=== PATIENT | male | born 1935 | race Caucasian/White ===

== ENCOUNTER 2016-08-05 10:10 | Inpatient (IN) | payer OTHER, BC ==
[2016-08-05 10:21] VITALS: BMI 23.8
--- NOTE | 2016-08-05 10:33 | PDOC ---
History of Present Illness - General Chief Complaint: Blood Sugar Problem Stated Complaint: AMS Time Seen by Provider: 08/05/16 10:26 History Source: Patient Exam Limitations: No Limitations - History of Present Illness Initial Comments: CHIEF COMPLAINT: 81 y/o afebrile male with PMH DM, ESRD (HD M/W/F), CAD s/p [place] and CABG (on plavix), HLD, cardiomyopathy with AICD, PAD with ambutated toes on right foot, anemia BIB EMS from [place] for syncopal episode. HISTORY OF PRESENT ILLNESS: The patient states he was told by half-way staff that he passed out. He states he does not remember falling or passing out. He woke up in his bed and was told he passed out. He denies all other complaints including dizziness, f/c, n/v/d, CP, SOB, abd pain, back pain. Vital signs on arrival are notable for pulse of 46. REVIEW OF SYSTEMS: GENERAL/CONSTITUTIONAL: No fever/chills. No weakness. No weight change. HEAD, EYES, EARS, NOSE AND THROAT: No change in vision. No ear pain or discharge. No sore throat. CARDIOVASCULAR: No chest pain or shortness of breath. RESPIRATORY: No cough, wheezing, or hemoptysis. GASTROINTESTINAL: No abd pain, nausea, vomiting, diarrhea. GENITOURINARY: No dysuria, frequency, or change in urination. MUSCULOSKELETAL: No joint or muscle swelling or pain. No neck or back pain. SKIN: No rash or easy bruising. NEUROLOGIC: +LOC. No headache, vertigo, or loss of sensation. PHYSICAL EXAM: GENERAL: The patient is awake, alert, and fully oriented, in no acute distress. HEAD: Normal with no signs of trauma. ENT: Pupils equal, round and reactive to light, extraocular movements intact, sclera anicteric, conjunctiva clear. Mucous membranes mildly dry. LUNGS: Clear to auscultation bilaterally. Normal excursion. No respiratory distress or use of accessory muscles. CV: bradycardic with irregular rate. S1/S2, no MRG. Cap refill < 2 sec. ABDOMEN: Soft, non-distended, non-tender even to deep palpation, no hepatomegaly or splenomegaly, no masses. EXTREMITIES: Normal range of motion, no edema. Right foot in bandage s/p 2 toe amputation last 2 weeks. NEUROLOGICAL: Normal speech. Gait not assessed in the ER. CN II-XII grossly intact. A&O x 3. No facial droop. No slurred speech PSYCH: Normal mood, normal affect. SKIN: Warm, dry, normal turgor, no rashes or lesions noted. Past History - Past Medical History Allergies/Adverse Reactions: Allergies Allergy/AdvReac Type Severity Reaction Status Date / Time No Known Allergies Allergy Verified 07/07/16 09:27 Home Medications: Ambulatory Orders Clopidogrel Bisulfate [Plavix -] 75 mg PO DAILY 07/30/11 Ramipril [Altace] 5 mg PO DAILY 07/30/11 Sevelamer Carbonate [Renvela -] 1,600 mg PO ACBK 07/30/11 Simvastatin [Zocor -] 40 mg PO HS #0 tablet 08/04/11 Vit B Cmplx 3/FA/Vit C/Biotin [Nephro-Coleman Rx Tablet] 1 each PO DAILY #0 tablet 08/04/11 Albuterol 0.083% Nebulizer Jerilyn [Ventolin 0.083% Nebulizer Soln -] 1 neb NEB Q6H PRN #1 vial 09/05/11 Aspirin Coated [Ecotrin -] 81 mg PO DAILY tablet.ec 03/30/16 Sitagliptin Phosphate [Januvia -] 25 mg PO DAILY@0700 tab 03/30/16 Pantoprazole Sodium [Protonix] 20 mg PO DAILY 07/07/16 Carvedilol [Coreg -] 6.25 mg PO BID tablet 07/29/16 Insulin Sliding Scale [Novolog Vial Sliding Scale -] 1 vial SQ ACHS units 07/29 Losartan Potassium [Cozaar -] 25 mg PO DAILY tablet 07/29/16 Asthma: Yes Cancer: Yes (skin) Cardiac Disorders: Yes (cad) Diabetes: Yes Dialysis: Yes (left lower arm fistula) HTN: Yes Hypercholesterolemia: Yes - Surgical History Appendectomy: Yes Cardiac Surgery: Yes (open heart sx, triple bypass.) - Immunization History Immunization Up to Date: Yes - Psycho/Social/Smoking Cessation Hx Anxiety: No Suicidal Ideation: No Smoking Status: No Smoking History: Never smoked Have you smoked in the past 12 months: No Number of Cigarettes Smoked Daily: 0 Hx Alcohol Use: No Drug/Substance Use Hx: No Substance Use Type: None Hx Substance Use Treatment: No *Physical Exam - Vital Signs Last Vital Signs Temp Pulse Resp BP Pulse Ox 46 L 18 124/67 97 08/05/16 10:19 08/05/16 10:19 08/05/16 10:19 08/05/16 10:19 Heart Score/ECG Review - ECG Intrepretation Comment:: Twelve-lead EKG was performed and reviewed by Dr. Trujillo. Sinus bradycardia with intermittent paced rhythm. No acute ST changes. Impression: Abnormal twelve-lead EKG ED Treatment Course - LABORATORY CBC & Chemistry Diagram: 08/05/16 11:00 08/05/16 11:00 Medical Decision Making - Medical Decision Making A/P: 81 y/o afebrile male with reported LOC at half-way which the patient does not recollect. Plan is as follows: 1. EKG 2. CXR 3. Labs CXR IMPRESSION: CHF Head CT IMPRESSION: Negative for acute pathology. Spoke with Dr. Mendes who accepts admission to [facility]. Dr. Mendes requested consult with Dr. 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 Rosario Placed call to Dr. Ferrera, [employer] [address] Mukherjee for dialysis today. Spoke with Dr. Le and he will set up dialysis for today. Spoke with Dr. Schneider, monorail helper for Dr. Ferrera and he states the patient should be seen by Dr. Rosario. Looked in the orders in the chart and Dr. Mendes has already ordered consult with Dr. Rosario. *DC/Admit/Observation/Transfer Diagnosis at time of Disposition: Syncope and collapse, Elevated brain natriuretic peptide (BNP) level, CHF ( congestive heart failure), ESRD (end stage renal disease) - Discharge Dispostion Admit: Yes - Referrals
[2016-08-05 11:11] LABS: BASOPHIL 1.2 % (0-2.0); EOSINOPHIL 7.9 % (0-4.5); MCH 27.4 pg (25.7-33.7); MCHC 29.5 g/dl (32.0-35.9); MEAN CELL VOLUME 92.8 fl (80-96); MEAN PLT VOLUME 9.2 fl (7.5-11.1); NEUTROPHILS 68.1 % (42.8-82.8); PLATELET COUNT 173 K/MM3 (134-434); WHITE BLOOD COUNT 11.4 K/mm3 (4.0-10.0)
--- NOTE | 2016-08-05 11:17 | PDOC ---
*Physical Exam - Vital Signs Last Vital Signs Temp Pulse Resp BP Pulse Ox 46 L 18 124/67 97 08/05/16 10:19 08/05/16 10:19 08/05/16 10:19 08/05/16 10:19 ED Treatment Course - LABORATORY CBC & Chemistry Diagram: 08/05/16 11:00 08/05/16 11:00 Medical Decision Making - Medical Decision Making 08/05/16 11:16 Patient seen and evaluated with the nurse practitioner. I agree with the overall evaluation, assessment, and management with the following summary of visit: 81-year-old male with multiple medical problems including heart disease with AICD presents brought in by ambulance with syncope. No trauma. Agree with management and assessment as outlined, labs/chest x-ray/EKG, likely admission *DC/Admit/Observation/Transfer Diagnosis at time of Disposition: Syncope and collapse
[2016-08-05 11:28] LABS: INR 1.35 (0.82-1.09); PROTHROMBIN TIME (PATIENT) 14.9 SEC (9.98-11.88)
[2016-08-05 11:36] LABS: BILIRUBIN,TOTAL 0.7 mg/dL (0.2-1.0); CALCIUM 8.4 mg/dL (8.5-10.1); CREATININE 4.8 mg/dL (0.7-1.3); TOT PROT 6.6 g/dl (6.4-8.2)
[2016-08-05 11:50] LABS: TROPONIN I 0.02 ng/ml (0.00-0.05)
--- NOTE | 2016-08-05 14:41 | CON.PULM ---
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 I called the nursing and spoke to his nurse, patient was found on floor in his room with a heart rate of mid 40's and blood glucose level of 54.He states he does not remember falling or passing out. He woke up in his bed and was told he passed out. He denies chest pain,fever,chills or N/V. 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 No: AFIB, HTN, Mitral Stenosis, Pulmonary Hypertension Pulmonary: Yes: Cancer, COPD Gastrointestinal: No: Ascites Hepatobiliary: No: Cirrhosis Renal/: Yes: Renal Failure, Hemodialysis Heme/Onc: Yes: Anemia Infectious Disease: No: AIDS Psych: No: Addictions Endocrine: Yes: Diabetes Mellitus - Past Surgical History Past Surgical History: Yes: AICD, CABG, Colonoscopy - Alcohol/Substance Use Hx Alcohol Use: No History of Substance Use: reports: None - Smoking History Smoking history: Never smoked Have you smoked in the past 12 months: No Aproximately how many cigarettes per day: 0 - Social History ADL: Independent History of Recent Travel: No Home Medications - Allergies Allergies/Adverse Reactions: Allergies Allergy/AdvReac Type Severity Reaction Status Date / Time No Known Allergies Allergy Verified 07/07/16 09:27 - Home Medications Home Medications: Ambulatory Orders Clopidogrel Bisulfate [Plavix -] 75 mg PO DAILY 07/30/11 Ramipril [Altace] 5 mg PO DAILY 07/30/11 Sevelamer Carbonate [Renvela -] 1,600 mg PO ACBK 07/30/11 Simvastatin [Zocor -] 40 mg PO HS #0 tablet 08/04/11 Vit B Cmplx 3/FA/Vit C/Biotin [Nephro-Coleman Rx Tablet] 1 each PO DAILY #0 tablet 08/04/11 Albuterol 0.083% Nebulizer Jerilyn [Ventolin 0.083% Nebulizer Soln -] 1 neb NEB Q6H PRN #1 vial 09/05/11 Aspirin Coated [Ecotrin -] 81 mg PO DAILY tablet.ec 03/30/16 Sitagliptin Phosphate [Januvia -] 25 mg PO DAILY@0700 tab 03/30/16 Pantoprazole Sodium [Protonix] 20 mg PO DAILY 07/07/16 Carvedilol [Coreg -] 6.25 mg PO BID tablet 07/29/16 Insulin Sliding Scale [Novolog Vial Sliding Scale -] 1 vial SQ ACHS units 07/29 Losartan Potassium [Cozaar -] 25 mg PO DAILY tablet 07/29/16 Family Disease History - Family Disease History Family Disease History: Diabetes: Brother, Heart Disease: Brother, [place]: Brother Review of Systems - Review of Systems Constitutional: denies: Fever Eyes: denies: Blurred Vision HENT: denies: Difficult Swallowing Neck: denies: Decreased ROM Cardiovascular: denies: Chest Pain Respiratory: reports: SOB on Exertion Gastrointestinal: denies: Abdominal Pain Physical Exam Vital Sings: Vital Signs Temperature Pulse Rate 46 L 08/05/16 10:19 Respiratory Rate 18 08/05/16 10:19 Blood Pressure 124/67 08/05/16 10:19 O2 Sat by Pulse Oximetry (%) 97 08/05/16 10:19 Constitutional: Yes: Calm Eyes: Yes: EOM Intact HENT: Yes: Normocephalic Neck: Yes: Trachea Midline Cardiovascular: Yes: Bradycardia, S1, S2 Respiratory: Yes: CTA Bilaterally Gastrointestinal: Yes: Normal Bowel Sounds, Soft Extremities: Yes: Other (RIGHT FOOT BANDAGED/NO EDEMA) Integumentary: Yes: Other (DRY GANGRENE TOES RIGHT FOOT) Neurological: Yes: Alert Psychiatric: Yes: Alert Labs: REVIEWED Imaging - Results Chest X-ray: Image Reviewed EKG: Report Reviewed Problem List - Problems (1) Anemia Code(s): D64.9 - ANEMIA, UNSPECIFIED Qualifiers: Anemia type: other cause Other causes of anemia: chronic disease, kidney Qualified Code(s): N18.9 - Chronic kidney disease, unspecified; D63.1 - Anemia in chronic kidney disease (2) CHF (congestive heart failure) Code(s): I50.9 - HEART FAILURE, UNSPECIFIED (3) ESRD (end stage renal disease) Code(s): N18.6 - END STAGE RENAL DISEASE (4) H/O myocardial infarction, greater than 8 weeks Code(s): I25.2 - OLD MYOCARDIAL INFARCTION (5) Gangrene Code(s): I96 - GANGRENE, NOT ELSEWHERE CLASSIFIED (6) Hypoglycemia Code(s): E16.2 - HYPOGLYCEMIA, UNSPECIFIED (7) Bradyarrhythmia Code(s): I49.8 - OTHER SPECIFIED CARDIAC ARRHYTHMIAS Assessment/Plan EPISODE OF HYPOGLYCEMIA LIKELY THE CAUSATIVE EVENT NEED TO EVALUATE ICD FUNCTION ESRD/HD TIW ASHD/CAD/FL/CABG/DILATED CARDIOMYOPATHY PAD/S/P HOPPER FEEDER RIGHT LOWER EXT FOLLOWED BY 2ND TOE AMPUTATION HPL/DM/ANEMIA HOLD HYPOGLYCEMIC AGENTS FOR NOW CHECK BGM AC/HS CONTINUE HD PER SCHEDULE CARDIAC EVAL ICD NEEDS VASCULAR CONSULT FOR FURTHER EVALUATION OF DRY GANGRENE WILL FOLLOW WITH YOU Alex MOSER
[2016-08-05] MEDS ORDERED: HEPARIN NA (PORCINE) 5,000 UNITS/ML 1ML VIAL IVPUSH ONE (15:00)
--- NOTE | 2016-08-05 15:28 | CON.CARD ---
Cardiology Consult (text) - Consultation Consultation Note: Cardiology consult was requested. However, patient has been seen multiple times recently by Dr. Servin's group, with most recent evaluation on 07/31/16. ER was instructed to contact Dr. Servin's group.
--- NOTE | 2016-08-05 16:24 | CON.CARD ---
[id number]:: Post fall - History of Present Illness Chief Complaint: Post fall, bradycardia History of Present Illness: Patient is an 81 year old male well known to our service with underlying history of ESRD on HD (MWF), CAD S/P [place], S/P CABG (CACERES to LAD-D1, SVG to OM1, SVG to RPDA), ischemic cardiomyopathy with history of failure, S/P ICD ([place]), HTN/HCVD, type 2 DM, anemia and COPD, s/p recent RLE NURSE CASE MANAGER and toe amputation for dry gangrene referred by NH to ER for possible syncope after being found on floor, HR mid 40s and BGT 54. Denies chest pain, palpitations, dyspnea, near or true syncope, orthopnea, PND or LE edema. 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 No: AFIB, HTN, Mitral Stenosis, Pulmonary Hypertension Pulmonary: Yes: Cancer, COPD Gastrointestinal: No: Ascites Hepatobiliary: No: Cirrhosis Renal/: Yes: Renal Failure, Hemodialysis Infectious Disease: No: AIDS Psych: No: Addictions Endocrine: Yes: Diabetes Mellitus - Past Surgical History Past Surgical History: Yes: AICD, CABG, Colonoscopy - Alcohol/Substance Use Hx Alcohol Use: No History of Substance Use: reports: None - Smoking History Smoking history: Never smoked Have you smoked in the past 12 months: No Aproximately how many cigarettes per day: 0 - Social History ADL: Independent History of Recent Travel: No Home Medications - Allergies Allergies/Adverse Reactions: Allergies Allergy/AdvReac Type Severity Reaction Status Date / Time No Known Allergies Allergy Verified 07/07/16 09:27 - Home Medications Home Medications: Ambulatory Orders Clopidogrel Bisulfate [Plavix -] 75 mg PO DAILY 07/30/11 Ramipril [Altace] 5 mg PO DAILY 07/30/11 Sevelamer Carbonate [Renvela -] 1,600 mg PO ACBK 07/30/11 Simvastatin [Zocor -] 40 mg PO HS #0 tablet 08/04/11 Vit B Cmplx 3/FA/Vit C/Biotin [Nephro-Coleman Rx Tablet] 1 each PO DAILY #0 tablet 08/04/11 Albuterol 0.083% Nebulizer Jerilyn [Ventolin 0.083% Nebulizer Soln -] 1 neb NEB Q6H PRN #1 vial 09/05/11 Aspirin Coated [Ecotrin -] 81 mg PO DAILY tablet.ec 03/30/16 Sitagliptin Phosphate [Januvia -] 25 mg PO DAILY@0700 tab 03/30/16 Pantoprazole Sodium [Protonix] 20 mg PO DAILY 07/07/16 Carvedilol [Coreg -] 6.25 mg PO BID tablet 07/29/16 Insulin Sliding Scale [Novolog Vial Sliding Scale -] 1 vial SQ ACHS units 07/29 Losartan Potassium [Cozaar -] 25 mg PO DAILY tablet 07/29/16 Family Disease History - Family Disease History Family Disease History: Diabetes: Brother, Heart Disease: Brother, [place]: Brother Review of Systems Unable to obtain ROS, reason: Poor historian Vital Signs: Vital Signs Temperature 97.7 F 08/05/16 14:15 Pulse Rate 45 L 08/05/16 15:50 Respiratory Rate 18 08/05/16 15:50 Blood Pressure 103/41 08/05/16 15:50 O2 Sat by Pulse Oximetry (%) 97 08/05/16 10:19 Constitutional: Yes: No Distress, Calm Neck: Yes: Supple Respiratory: Yes: Regular, Diminished Gastrointestinal: Yes: Normal Bowel Sounds, Soft Cardiovascular: Yes: Regular Rate and Rhythm JVD: No Carotid Bruit: No Heart Sounds: Yes: S1, S2 Murmur: Yes: Systolic Murmur, Grade 1 Edema: No - Other Data Labs, Other Data: INR, PTT INR 1.35 (0.82-1.09) H 08/05/16 11:00 Imaging - Results Chest X-ray: Report Reviewed (CHF) Cat Scan: Report Reviewed (HCT: Negative) Problem List - Problems (1) Bradyarrhythmia Code(s): I49.8 - OTHER SPECIFIED CARDIAC ARRHYTHMIAS (2) Coronary artery disease Code(s): I25.10 - ATHSCL HEART DISEASE OF [place] CORONARY ARTERY W/O ANG PCTRS Qualifiers: Coronary Disease-Associated Artery/Lesion type: [place] artery [place] vs. transplanted heart: [place] heart Associated angina: without angina Qualified Code(s): I25.10 - Atherosclerotic heart disease of [place] coronary artery without angina pectoris (3) ESRD (end stage renal disease) Code(s): N18.6 - END STAGE RENAL DISEASE (4) H/O myocardial infarction, greater than 8 weeks Code(s): I25.2 - OLD MYOCARDIAL INFARCTION (5) Hyperlipidemia associated with type 2 diabetes mellitus Code(s): E11.69 - TYPE 2 DIABETES MELLITUS WITH OTHER SPECIFIED COMPLICATION E78.5 - HYPERLIPIDEMIA, UNSPECIFIED (6) Hypoglycemia Code(s): E16.2 - HYPOGLYCEMIA, UNSPECIFIED (7) Ischemic dilated cardiomyopathy Code(s): I25.5 - ISCHEMIC CARDIOMYOPATHY (8) Neurocardiogenic pre-syncope Code(s): R55 - SYNCOPE AND COLLAPSE (9) S/P CABG (coronary artery bypass graft) Code(s): Z95.1 - PRESENCE OF AORTOCORONARY BYPASS GRAFT (10) Single implantable cardioverter-defibrillator (ICD) in situ Code(s): Z95.810 - PRESENCE OF AUTOMATIC (IMPLANTABLE) CARDIAC DEFIBRILLATOR (11) HTN (hypertension) Code(s): I10 - ESSENTIAL (PRIMARY) HYPERTENSION Qualifiers: Hypertension type: essential hypertension Qualified Code(s): I10 - Essential (primary) hypertension (12) Hypercholesterolemia Code(s): E78.0 - PURE HYPERCHOLESTEROLEMIA * DO NOT USE * (13) Peripheral arterial disease Code(s): I73.9 - PERIPHERAL VASCULAR DISEASE, UNSPECIFIED (14) Right foot ulcer Code(s): L97.519 - NON-PRS CHRONIC ULCER OTH PRT RIGHT FOOT W UNSP SEVERITY Qualifiers: Non-pressure ulcer stage: unspecified non-pressure ulcer stage Qualified Code(s): L97.519 - Non-pressure chronic ulcer of other part of right foot with unspecified severity Assessment/Plan 1. Possible syncopal episode r/o hypoglycemia 2. CAD, [place], S/P CABG, angina pectoris 3. Ischemic dilated cardiomyopathy S/P ICD ([facility] [facility]), history of failure 4. HTN/HCVD 5. Type 2 DM 6. Hypercholesterolemia 7. ESRD on HD MWF 8. Anemia due to chronic disease 9. PAD with right 2nd toe gangrene s/p infrapoplitial NURSE CASE MANAGER and right partial 2nd toe amputation 10. Neurogenic near syncope PLAN: 1. Continue Carvedilol 6.25 mg bid and Losartan 25 mg qd on non HD days 2. Continue ASA 81 mg qd and Plavix 75 mg qd, hypoglycemic agents on hold 3. DVT and GI prophylaxis 4. HD with ultrafiltration as per Renal 5. Check orthostatic vital signs, ICD interrogation showed no sig arrhythmias, normal device paramenters 6. Thank you for consultative opportunity
[2016-08-05] MEDS ORDERED: ALBUTEROL SO4 0.083% IH SOL 2.5 MG/3 ML VIAL.NEB. NEB PRN (17:08)
[2016-08-05] MEDS: HEPARIN NA (PORCINE) 5,000 UNITS/ML 1ML VIAL SQ SCH (22:25)
[2016-08-05] MEDS: ATORVASTATIN CA 20 MG TABLET (FP) PO SCH (22:25)
[2016-08-05] MEDS: CARVEDILOL 6.25 MG TABLET (FP) PO SCH (22:25)
[2016-08-05] MEDS: INSULIN SLIDING SCALE (NOVOLOG) 1 VIAL SQ SCH (22:26)
[2016-08-06] MEDS ORDERED: MAG HYDROX/AL HYDROX/SIMETH 30 ML UNIT-DOSE CUP PO ONE (02:26)
[2016-08-06] MEDS ORDERED: CALCIUM (OYSTER SHELL) 500 MG TABLET (FP) PO ONE (02:31)
[2016-08-06] MEDS ORDERED: CALCIUM CARBONATE SUSPENSION - 500 MG/5 ML ML PO ONE (02:45)
[2016-08-06] MEDS: INSULIN SLIDING SCALE (NOVOLOG) 1 VIAL SQ SCH ×4 (06:26→21:43)
[2016-08-06 08:09] LABS: BASOPHIL 1.8 % (0-2.0); EOSINOPHIL 8.8 % (0-4.5); MCH 27.9 pg (25.7-33.7); MCHC 30.5 g/dl (32.0-35.9); MEAN CELL VOLUME 91.6 fl (80-96); MEAN PLT VOLUME 9.4 fl (7.5-11.1); NEUTROPHILS 65.1 % (42.8-82.8); PLATELET COUNT 165 K/MM3 (134-434); RDW 15.8 % (11.9-15.9); WHITE BLOOD COUNT 8.1 K/mm3 (4.0-10.0)
[2016-08-06] MEDS: SEVELAMER CARBONATE 800 MG TAB (FP) PO SCH (08:11)
[2016-08-06] MEDS: sitaGLIPtin PHOSPHATE 25 MG TABLET (FP) PO SCH (08:11)
--- NOTE | 2016-08-06 08:14 | HP ---
Admitting History and Physical - Admission History of Present Illness: 81 y/o afebrile male with PMH DM, ESRD (HD M/W/F), CAD s/p [place] and CABG (on plavix), HLD, cardiomyopathy with AICD, PAD with ambutated toes on right foot, anemia BIB EMS from [place] for syncopal episode. The patient states he was told by long term staff that he passed out. He states he does not remember falling or passing out. He woke up in his bed and was told he passed out. 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 No: AFIB, HTN, Mitral Stenosis, Pulmonary Hypertension Pulmonary: Yes: Cancer, COPD Gastrointestinal: No: Ascites Hepatobiliary: No: Cirrhosis Renal/: Yes: Renal Failure, Hemodialysis Heme/Onc: Yes: Anemia Infectious Disease: No: AIDS Psych: No: Addictions Endocrine: Yes: Diabetes Mellitus - Past Surgical History Past Surgical History: Yes: AICD, CABG, Colonoscopy - Smoking History Smoking history: Never smoked Have you smoked in the past 12 months: No Aproximately how many cigarettes per day: 0 - Alcohol/Substance Use Hx Alcohol Use: No History of Substance Use: reports: None - Social History ADL: Independent History of Recent Travel: No Home Medications - Allergies Allergies/Adverse Reactions: Allergies Allergy/AdvReac Type Severity Reaction Status Date / Time No Known Allergies Allergy Verified 07/07/16 09:27 - Home Medications Home Medications: Ambulatory Orders Clopidogrel Bisulfate [Plavix -] 75 mg PO DAILY 07/30/11 Ramipril [Altace] 5 mg PO DAILY 07/30/11 Sevelamer Carbonate [Renvela -] 1,600 mg PO ACBK 07/30/11 Simvastatin [Zocor -] 40 mg PO HS #0 tablet 08/04/11 Vit B Cmplx 3/FA/Vit C/Biotin [Nephro-Coleman Rx Tablet] 1 each PO DAILY #0 tablet 08/04/11 Albuterol 0.083% Nebulizer Jerilyn [Ventolin 0.083% Nebulizer Soln -] 1 neb NEB Q6H PRN #1 vial 09/05/11 Aspirin Coated [Ecotrin -] 81 mg PO DAILY tablet.ec 03/30/16 Sitagliptin Phosphate [Januvia -] 25 mg PO DAILY@0700 tab 03/30/16 Pantoprazole Sodium [Protonix] 20 mg PO DAILY 07/07/16 Carvedilol [Coreg -] 6.25 mg PO BID tablet 07/29/16 Insulin Sliding Scale [Novolog Vial Sliding Scale -] 1 vial SQ ACHS units 07/29 Losartan Potassium [Cozaar -] 25 mg PO DAILY tablet 07/29/16 Family Disease History - Family Disease History Family Disease History: Diabetes: Brother, Heart Disease: Brother, [place]: Brother Physical Examination Vital Signs: Vital Signs Temperature 97.6 F 08/06/16 07:53 Pulse Rate 98 H 08/06/16 07:53 Respiratory Rate 18 08/06/16 07:53 Blood Pressure 97/48 08/06/16 07:53 O2 Sat by Pulse Oximetry (%) 99 08/05/16 20:54 Neck: Yes: Supple Cardiovascular: Yes: Murmur, S1, S2 Respiratory: Yes: Regular, CTA Bilaterally Gastrointestinal: Yes: Normal Bowel Sounds, Soft Edema: No Wound/Incision: Yes: Dressing Dry and Intact Neurological: Yes: Alert, Oriented Imaging - Results Chest X-ray: Report Reviewed (chf) Cat Scan: Report Reviewed (head nad) Problem List - Problems (1) Syncope and collapse Assessment/Plan: MAYBE RELATED TO HYPOGLYCEMIA R/O ARRYTHMIA R/O ICD MALFUNCTION Code(s): R55 - SYNCOPE AND COLLAPSE (2) CHF (congestive heart failure) Assessment/Plan: RENAL--DIALYSIS Code(s): I50.9 - HEART FAILURE, UNSPECIFIED (3) Coronary artery disease Assessment/Plan: CARDIO ON BOARD SAME MEDS Code(s): I25.10 - ATHSCL HEART DISEASE OF [place] CORONARY ARTERY W/O ANG PCTRS Qualifiers: Coronary Disease-Associated Artery/Lesion type: [place] artery [place] vs. transplanted heart: [place] heart Associated angina: without angina Qualified Code(s): I25.10 - Atherosclerotic heart disease of [place] coronary artery without angina pectoris (4) ESRD (end stage renal disease) Assessment/Plan: RENAL--DIALYSIS Code(s): N18.6 - END STAGE RENAL DISEASE (5) Ischemic dilated cardiomyopathy Assessment/Plan: PER CARDIO Code(s): I25.5 - ISCHEMIC CARDIOMYOPATHY (6) Single implantable cardioverter-defibrillator (ICD) in situ Assessment/Plan: INTERROGATION DONE Code(s): Z95.810 - PRESENCE OF AUTOMATIC (IMPLANTABLE) CARDIAC DEFIBRILLATOR (7) Peripheral arterial disease Assessment/Plan: MONITOR Code(s): I73.9 - PERIPHERAL VASCULAR DISEASE, UNSPECIFIED (8) Right foot ulcer Assessment/Plan: WOUND CARE Code(s): L97.519 - NON-PRS CHRONIC ULCER OTH PRT RIGHT FOOT W UNSP SEVERITY Qualifiers: Non-pressure ulcer stage: unspecified non-pressure ulcer stage Qualified Code(s): L97.519 - Non-pressure chronic ulcer of other part of right foot with unspecified severity (9) Arrhythmia Assessment/Plan: CHECK MAG Code(s): I49.9 - CARDIAC ARRHYTHMIA, UNSPECIFIED Qualifiers: Premature depolarization type: ventricular
[2016-08-06 09:03] LABS: ALBUMIN 2.7 g/dl (3.4-5.0); BILIRUBIN,TOTAL 0.6 mg/dL (0.2-1.0); CALCIUM 8.2 mg/dL (8.5-10.1); CREATININE 3.7 mg/dL (0.7-1.3); TOT PROT 6.1 g/dl (6.4-8.2); TROPONIN I 0.02 ng/ml (0.00-0.05)
[2016-08-06] MEDS: HEPARIN NA (PORCINE) 5,000 UNITS/ML 1ML VIAL SQ SCH ×2 (09:39→22:20)
[2016-08-06] MEDS: CLOPIDOGREL BISULFATE 75 MG TABLET (FP) PO SCH (09:39)
[2016-08-06] MEDS: PANTOPRAZOLE 20 MG TABLET (FP) PO SCH (09:39)
[2016-08-06] MEDS: CARVEDILOL 6.25 MG TABLET (FP) PO SCH ×2 (09:39→22:15)
[2016-08-06] MEDS ORDERED: ASPIRIN 81 MG CHEWABLE TABLETS PO SCH (10:00)
[2016-08-06] MEDS ORDERED: LOSARTAN POTASSIUM 25 MG TABLET PO SCH (10:00)
[2016-08-06] MEDS ORDERED: ASPIRIN COATED 81 MG TABLET.EC PO SCH (10:00)
--- NOTE | 2016-08-06 10:35 | PN ---
Progress Note, Physician History of Present Illness: Not orthostatic, ICD interrogation unrevealing, no sustained arrhythmias, normal device parameters, no longer hypoglycemic. - Current Medication List Current Medications: Active Medications Albuterol Sulfate (Ventolin 0.083% Nebulizer Soln -) 1 amp NEB Q6H PRN PRN Reason: SHORT OF BREATH/WHEEZING Atorvastatin Calcium (Lipitor -) 20 mg PO HS REPLACED BY [facility] Last Admin: 08/05/16 22:25 Dose: 20 mg Carvedilol (Coreg -) 6.25 mg PO BID REPLACED BY [facility] Last Admin: 08/06/16 09:39 Dose: 6.25 mg Clopidogrel Bisulfate (Plavix -) 75 mg PO DAILY REPLACED BY [facility] Last Admin: 08/06/16 09:39 Dose: 75 mg Heparin Sodium (Porcine) (Heparin -) 5,000 unit SQ BID REPLACED BY [facility] Last Admin: 08/06/16 09:39 Dose: 5,000 unit Insulin Aspart (Novolog Vial Sliding Scale -) 1 vial SQ ACHS REPLACED BY [facility] PRN Reason: Protocol Last Admin: 08/06/16 06:26 Dose: Not Given Levothyroxine Sodium (Synthroid -) 25 mcg PO DAILY@0700 REPLACED BY [facility] Losartan Potassium (Cozaar -) 25 mg PO DAILY REPLACED BY [facility] Last Admin: 08/06/16 09:39 Dose: 25 mg Pantoprazole Sodium (Protonix -) 20 mg PO DAILY REPLACED BY [facility] Last Admin: 08/06/16 09:39 Dose: 20 mg Sevelamer Carbonate (Renvela -) 1,600 mg PO DAILY@0800 REPLACED BY [facility] Last Admin: 08/06/16 08:11 Dose: 1,600 mg Sitagliptin Phosphate (Januvia -) 25 mg PO DAILY@0700 REPLACED BY [facility] Last Admin: 08/06/16 08:11 Dose: 25 mg - Objective Vital Signs: Vital Signs Temperature 97.6 F 08/06/16 07:53 Pulse Rate 98 H 08/06/16 07:53 Respiratory Rate 18 08/06/16 08:16 Blood Pressure 97/48 08/06/16 07:53 O2 Sat by Pulse Oximetry (%) 99 08/06/16 08:16 Constitutional: Yes: No Distress, Calm Neck: Yes: Supple Cardiovascular: Yes: Regular Rate and Rhythm Respiratory: Yes: Regular, Diminished, On Nasal O2 Gastrointestinal: Yes: Normal Bowel Sounds, Soft Edema: No Labs: CBC, BMP 08/06/16 05:35 08/06/16 05:35 INR, PTT INR 1.35 (0.82-1.09) H 08/05/16 11:00 - ....Imaging EKG: Report Reviewed (Tele: Paced less than 1% time) Problem List - Problems (1) Bradyarrhythmia Code(s): I49.8 - OTHER SPECIFIED CARDIAC ARRHYTHMIAS (2) Coronary artery disease Code(s): I25.10 - ATHSCL HEART DISEASE OF [place] CORONARY ARTERY W/O ANG PCTRS Qualifiers: Coronary Disease-Associated Artery/Lesion type: [place] artery [place] vs. transplanted heart: [place] heart Associated angina: without angina Qualified Code(s): I25.10 - Atherosclerotic heart disease of [place] coronary artery without angina pectoris (3) ESRD (end stage renal disease) Code(s): N18.6 - END STAGE RENAL DISEASE (4) H/O myocardial infarction, greater than 8 weeks Code(s): I25.2 - OLD MYOCARDIAL INFARCTION (5) Hyperlipidemia associated with type 2 diabetes mellitus Code(s): E11.69 - TYPE 2 DIABETES MELLITUS WITH OTHER SPECIFIED COMPLICATION E78.5 - HYPERLIPIDEMIA, UNSPECIFIED (6) Hypoglycemia Code(s): E16.2 - HYPOGLYCEMIA, UNSPECIFIED (7) Ischemic dilated cardiomyopathy Code(s): I25.5 - ISCHEMIC CARDIOMYOPATHY (8) Neurocardiogenic pre-syncope Code(s): R55 - SYNCOPE AND COLLAPSE (9) S/P CABG (coronary artery bypass graft) Code(s): Z95.1 - PRESENCE OF AORTOCORONARY BYPASS GRAFT (10) Single implantable cardioverter-defibrillator (ICD) in situ Code(s): Z95.810 - PRESENCE OF AUTOMATIC (IMPLANTABLE) CARDIAC DEFIBRILLATOR (11) HTN (hypertension) Code(s): I10 - ESSENTIAL (PRIMARY) HYPERTENSION Qualifiers: Hypertension type: essential hypertension Qualified Code(s): I10 - Essential (primary) hypertension (12) Hypercholesterolemia Code(s): E78.0 - PURE HYPERCHOLESTEROLEMIA * DO NOT USE * (13) Peripheral arterial disease Code(s): I73.9 - PERIPHERAL VASCULAR DISEASE, UNSPECIFIED (14) Right foot ulcer Code(s): L97.519 - NON-PRS CHRONIC ULCER OTH PRT RIGHT FOOT W UNSP SEVERITY Qualifiers: Non-pressure ulcer stage: unspecified non-pressure ulcer stage Qualified Code(s): L97.519 - Non-pressure chronic ulcer of other part of right foot with unspecified severity (15) Hypothyroidism Code(s): E03.9 - HYPOTHYROIDISM, UNSPECIFIED Qualifiers: Hypothyroidism type: unspecified Qualified Code(s): E03.9 - Hypothyroidism, unspecified Assessment/Plan 1. Possible syncopal episode r/o hypoglycemia 2. CAD, OR, S/P CABG, angina pectoris 3. Ischemic dilated cardiomyopathy S/P ICD ([employer]), history of failure 4. HTN/HCVD 5. Type 2 DM 6. Hypercholesterolemia 7. ESRD on HD MWF 8. Anemia due to chronic disease 9. PAD with right 2nd toe gangrene s/p infrapoplitial DIRECTOR OF STUDENT [employer] and right partial 2nd toe amputation 10. 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 Hypothyroidism PLAN: 1. Continue Carvedilol 6.25 mg bid and Losartan 25 mg qd on non HD days 2. Continue ASA 81 mg qd and Plavix 75 mg qd, hypoglycemic agents on hold, Synthroid started 3. DVT and GI prophylaxis 4. HD with ultrafiltration as per Renal 5. ICD interrogation showed no sig arrhythmias, normal device paramenters
[2016-08-06 11:01] LABS: MCH 27.9 pg (25.7-33.7); MCHC 30.2 g/dl (32.0-35.9); MEAN CELL VOLUME 92.6 fl (80-96); PLATELET COUNT 161 K/MM3 (134-434); RDW 15.7 % (11.9-15.9); WHITE BLOOD COUNT 7.8 K/mm3 (4.0-10.0)
[2016-08-06 11:24] LABS: FERRITIN 1337.356 ng/ml (16.4-293.9)
--- NOTE | 2016-08-06 11:29 | CONSULT ---
Consult - text type - Consultation Consultation Note: Renal Consult for ESRD on HD This is a 81 year old Gentleman with PMhx of ESRD on HD (MWF @ [facility]), Hypertension, CAD s/p CABG, PVD who presented from [place] w/p fall and admitterd for syncope. Pt states that he was sitting at the edge of his bed and dozed off and fell. He could not recall any other events. Denies any WILSON, chest pain, sob, dizziness ,N/V/D. Last dialysis was on Wednesday w/o complication. S/p dialysis as inpatient yesterday. Regular HD orders: 3 hours 15 minutes, 3K/2.5Ca bath, DW 63.5kg PMhx: as above Allergies: NKDA Family Hx: [place] Social Hx: No T/A/D ROS: as per HPI Home Meds: Home Medications Medication Instructions Recorded Clopidogrel Bisulfate [Plavix -] 75 mg PO DAILY 07/30/11 Ramipril [Altace] 5 mg PO DAILY 07/30/11 Sevelamer Carbonate [Renvela -] 1,600 mg PO ACBK 07/30/11 Simvastatin [Zocor -] 40 mg PO HS #0 tablet 08/04/11 Vit B Cmplx 3/FA/Vit C/Biotin 1 each PO DAILY #0 tablet 08/04/11 [Nephro-[facility]man Rx Tablet] Albuterol 0.083% Nebulizer Jerilyn 1 neb NEB Q6H PRN #1 vial 09/05/11 [Ventolin 0.083% Nebulizer Soln -] Aspirin Coated [Ecotrin -] 81 mg PO DAILY tablet.ec 03/30/16 Sitagliptin Phosphate [Januvia -] 25 mg PO DAILY@0700 tab 03/30/16 Pantoprazole Sodium [Protonix] 20 mg PO DAILY 07/07/16 Carvedilol [Coreg -] 6.25 mg PO BID tablet 07/29/16 Insulin Sliding Scale [Novolog 1 vial SQ ACHS units 07/29/16 Vial Sliding Scale -] Losartan Potassium [Cozaar -] 25 mg PO DAILY tablet 07/29/16 Vital Signs Temperature 97.6 F 08/06/16 07:53 Pulse Rate 98 H 08/06/16 07:53 Respiratory Rate 18 08/06/16 08:16 Blood Pressure 97/48 08/06/16 07:53 O2 Sat by Pulse Oximetry (%) 99 08/06/16 08:16 Gen: NAD, awake and alert HEENT: NC/AT, MMM, No JVD CVS: RRR, No M/R Lungs: Dec BS at lung bases Abd: soft NT/ND Ext: No edema, clubbing or cyanosis NEuro: No focal defects Access: Right forearm AVF + thrill/bruits CBC, BMP 08/06/16 10:40 08/06/16 05:35 Current Medications Albuterol Sulfate (Ventolin 0.083% Nebulizer Soln -) 1 amp NEB Q6H PRN PRN Reason: SHORT OF BREATH/WHEEZING Atorvastatin Calcium (Lipitor -) 20 mg PO HS [facility] Last Admin: 08/05/16 22:25 Dose: 20 mg Carvedilol (Coreg -) 6.25 mg PO BID [facility] Last Admin: 08/06/16 09:39 Dose: 6.25 mg Clopidogrel Bisulfate (Plavix -) 75 mg PO DAILY [facility] Last Admin: 08/06/16 09:39 Dose: 75 mg Heparin Sodium (Porcine) (Heparin -) 5,000 unit SQ BID [facility] Last Admin: 08/06/16 09:39 Dose: 5,000 unit Insulin Aspart (Novolog Vial Sliding Scale -) 1 vial SQ ACHS [facility] PRN Reason: Protocol Last Admin: 08/06/16 06:26 Dose: Not Given Levothyroxine Sodium (Synthroid -) 25 mcg PO DAILY@0700 [facility] Losartan Potassium (Cozaar -) 25 mg PO DAILY [facility] Last Admin: 08/06/16 09:39 Dose: 25 mg Pantoprazole Sodium (Protonix -) 20 mg PO DAILY [facility] Last Admin: 08/06/16 09:39 Dose: 20 mg Sevelamer Carbonate (Renvela -) 1,600 mg PO DAILY@0800 [facility] Last Admin: 08/06/16 08:11 Dose: 1,600 mg Sitagliptin Phosphate (Januvia -) 25 mg PO DAILY@0700 [facility] Last Admin: 08/06/16 08:11 Dose: 25 mg A/P 81 year old Gentleman with PMhx of ESRD on HD (MWF @ [facility]), Hypertension, CAD s/p CABG, PVD who [place] and admitterd for syncope. #ESRD on HD Tolerated dialysis well yesterday with 2kg UF no acute indication for dialysis today next HD Wednesday with uf as tolerated, hold Losartan on dialysis days dose all meds for intermittent HD #Syncope/Hx of CAD Tele Monitoring AICD interrogation showed no arrhythmias as per Cardiology On Coreg, Losartan On Plavix #s/p LE Toe Amputation/PVD Continue Wound Care #CKD related Anemia Trend CBC Will start BENEDICT if Hgb less then 10 #Hypertension continue Losartan/Coreg Hold Losrtan on dialysis days Thank you Will follow Zion Le DO
--- NOTE | 2016-08-06 11:39 | EKG ---
Test Reason : Blood Pressure : / mmHG Vent. Rate : 063 BPM Atrial Rate : 063 BPM P-R Int : 340 ms QRS Dur : 158 ms QT Int : 490 ms P-R-T Axes : 035 -69 094 degrees QTc Int : 501 ms Atrial-sensed ventricular-paced rhythm with prolonged AV conduction WITH FREQUENT PREMATURE VENTRICULAR COMPLEXES ABNORMAL ECG WHEN COMPARED WITH ECG OF 05-AUG-2016 10:28, ELECTRONIC VENTRICULAR PACEMAKER HAS REPLACED SINUS RHYTHM Confirmed by GRISELDA GRIMES, CECY ([id number]) on 08/06/2016 11:39:01 AM Referred By: BRADFORD KINGSLEY Confirmed By:CECY VILLALOBOS MD
[2016-08-06 12:14] LABS: MAGNESIUM 1.7 mg/dL (1.8-2.4)
--- NOTE | 2016-08-06 13:38 | PN ---
Progress Note (short form) - Note Progress Note: PULMONARY No further hypoglycemic episodes. Some shortness of breath earlier this AM. Last Vital Signs Temp Pulse Resp BP Pulse Ox 97.6 F 98 H 18 97/48 99 08/06/16 07:53 08/06/16 07:53 08/06/16 08:16 08/06/16 07:53 08/06/16 08:16 Gen: NAD at rest Heart: RRR Lung: few basilar rales Abd: soft, nontender Ext: no edema CBC, BMP 08/06/16 10:40 08/06/16 05:35 Active Medications Albuterol Sulfate (Ventolin 0.083% Nebulizer Soln -) 1 amp NEB Q6H PRN PRN Reason: SHORT OF BREATH/WHEEZING Atorvastatin Calcium (Lipitor -) 20 mg PO HS [facility] Last Admin: 08/05/16 22:25 Dose: 20 mg Carvedilol (Coreg -) 6.25 mg PO BID [facility] Last Admin: 08/06/16 09:39 Dose: 6.25 mg Clopidogrel Bisulfate (Plavix -) 75 mg PO DAILY [facility] Last Admin: 08/06/16 09:39 Dose: 75 mg Heparin Sodium (Porcine) (Heparin -) 5,000 unit SQ BID [facility] Last Admin: 08/06/16 09:39 Dose: 5,000 unit Insulin Aspart (Novolog Vial Sliding Scale -) 1 vial SQ ACHS [facility] PRN Reason: Protocol Last Admin: 08/06/16 11:35 Dose: Not Given Levothyroxine Sodium (Synthroid -) 25 mcg PO DAILY@0700 [facility] Losartan Potassium (Cozaar -) 25 mg PO DAILY [facility] Pantoprazole Sodium (Protonix -) 20 mg PO DAILY [facility] Last Admin: 08/06/16 09:39 Dose: 20 mg Sevelamer Carbonate (Renvela -) 1,600 mg PO DAILY@0800 [facility] Last Admin: 08/06/16 08:11 Dose: 1,600 mg Sitagliptin Phosphate (Januvia -) 25 mg PO DAILY@0700 [facility] Last Admin: 08/06/16 08:11 Dose: 25 mg A/P Hypoglycemia Syncopal Episode ESRD on HD LV Systolic Dysfunction HTN DM PAD Hypothyroidism - monitor BGM - PO as tolerated - HD per renal - synthroid - DVT prophylaxis
--- NOTE | 2016-08-06 13:55 | EKG ---
Test Reason : Blood Pressure : / mmHG Vent. Rate : 054 BPM Atrial Rate : 054 BPM P-R Int : 320 ms QRS Dur : 116 ms QT Int : 498 ms P-R-T Axes : 093 -68 083 degrees QTc Int : 472 ms SINUS BRADYCARDIA WITH SINUS ARRHYTHMIA WITH 1ST DEGREE A-V BLOCK WITH OCCASIONAL PREMATURE VENTRICULAR COMPLEXES WITH OCCASIONAL ELECTRONIC VENTRICULAR PACING ANTERIOR INFARCT , AGE UNDETERMINED ABNORMAL ECG Confirmed by GRISELDA GRIMES, CECY ([id number]) on 08/06/2016 1:54:57 PM Referred By: Confirmed By:CECY VILLALOBOS MD
[2016-08-06] MEDS: ATORVASTATIN CA 20 MG TABLET (FP) PO SCH (22:15)
[2016-08-06] MEDS ORDERED: clonazePAM 0.5 MG TABLET PO ONE (22:15)
[2016-08-06] MEDS ORDERED: CALCIUM CARBONATE SUSPENSION - 500 MG/5 ML ML PO PRN (22:17)
[2016-08-07 00:06] LABS: HEP B SURFACE AB Reactive (.)
[2016-08-07] MEDS: INSULIN SLIDING SCALE (NOVOLOG) 1 VIAL SQ SCH ×2 (06:55→11:41)
[2016-08-07] MEDS: SEVELAMER CARBONATE 800 MG TAB (FP) PO SCH ×2 (07:46→11:42)
[2016-08-07] MEDS: LEVOTHYROXINE NA 25 MCG TABLET (FP) PO SCH ×2 (07:47→11:42)
[2016-08-07] MEDS: sitaGLIPtin PHOSPHATE 25 MG TABLET (FP) PO SCH ×2 (07:47→11:43)
[2016-08-07 08:07] LABS: SERUM IRON 39 ug/dL (38-169); TOTAL IRON BINDING CAPACITY 120 ug/dL (250-450); UIBC 81 ug/dL (111-343)
--- NOTE | 2016-08-07 08:29 | DS ---
Physical Examination Vital Signs: Vital Signs Temperature 98.0 F 08/07/16 07:25 Pulse Rate 54 L 08/07/16 07:30 Respiratory Rate 18 08/07/16 07:30 Blood Pressure 91/49 08/07/16 07:30 O2 Sat by Pulse Oximetry (%) 98 08/07/16 07:26 Findings/Remarks: NO COMPLAINTS Cardiovascular: Yes: S1, S2 Respiratory: Yes: Regular, CTA Bilaterally Gastrointestinal: Yes: Normal Bowel Sounds, Soft Wound/Incision: Yes: Dressing Dry and Intact Labs: CBC, BMP 08/06/16 10:40 08/06/16 05:35 Discharge Summary Reason For Visit: CHF,SYNCOPE AND COLLAPSE,ESRD Current Active Problems Anemia (Acute) Arrhythmia (Acute) Bradyarrhythmia (Acute) CHF (congestive heart failure) (Acute) Coronary artery disease (Acute) Dysphagia (Acute) ESRD (end stage renal disease) (Acute) Elevated brain natriuretic peptide (BNP) level (Acute) GERD (gastroesophageal reflux disease) (Acute) Gangrene (Acute) H/O myocardial infarction, greater than 8 weeks (Acute) Hyperlipidemia associated with type 2 diabetes mellitus (Acute) Hypoglycemia (Acute) Hypothyroidism (Acute) Ischemic dilated cardiomyopathy (Acute) Lightheaded (Acute) Neurocardiogenic pre-syncope (Acute) Postprandial bloating (Acute) S/P CABG (coronary artery bypass graft) (Acute) SOB (shortness of breath) (Acute) Single implantable cardioverter-defibrillator (ICD) in situ (Acute) Syncope and collapse (Acute) Hospital Course: 81 y/o afebrile male with PMH DM, ESRD (HD M/W/F), CAD s/p MN and CABG (on plavix), HLD, cardiomyopathy with AICD, PAD with ambutated toes on right foot, anemia BIB EMS from [place] for syncopal episode. The patient states he was told by skilled nursing staff that he passed out. He states he does not remember falling or passing out. He woke up in his bed and was told he passed out. 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 No: AFIB, HTN, Mitral Stenosis, Pulmonary Hypertension Pulmonary: Yes: Cancer, COPD Gastrointestinal: No: Ascites Hepatobiliary: No: Cirrhosis Renal/: Yes: Renal Failure, Hemodialysis Heme/Onc: Yes: Anemia Infectious Disease: No: AIDS Psych: No: Addictions Endocrine: Yes: Diabetes Mellitus - Past Surgical History Past Surgical History: Yes: AICD, CABG, Colonoscopy - Problems (1) Syncope and collapse Assessment/Plan: MAYBE RELATED TO HYPOGLYCEMIA MONITOR BP --DC ARB/ANA AND MONITOR CARDIO CONSULT AND W/U NOTED--PT CLEARED BY CARDIO Code(s): R55 - SYNCOPE AND COLLAPSE (2) CHF (congestive heart failure) Assessment/Plan: RENAL--DIALYSIS Code(s): I50.9 - HEART FAILURE, UNSPECIFIED (3) Coronary artery disease Assessment/Plan: CARDIO ON BOARD SAME MEDS Code(s): I25.10 - ATHSCL HEART DISEASE OF [place] CORONARY ARTERY W/O ANG PCTRS Qualifiers: Coronary Disease-Associated Artery/Lesion type: [place] artery [place] vs. transplanted heart: [place] heart Associated angina: without angina Qualified Code(s): I25.10 - Atherosclerotic heart disease of [place] coronary artery without angina pectoris (4) ESRD (end stage renal disease) Assessment/Plan: RENAL--DIALYSIS Code(s): N18.6 - END STAGE RENAL DISEASE (5) Ischemic dilated cardiomyopathy Assessment/Plan: PER CARDIO Code(s): I25.5 - ISCHEMIC CARDIOMYOPATHY (6) Single implantable cardioverter-defibrillator (ICD) in situ Assessment/Plan: INTERROGATION DONE Code(s): Z95.810 - PRESENCE OF AUTOMATIC (IMPLANTABLE) CARDIAC DEFIBRILLATOR (7) Peripheral arterial disease Assessment/Plan: MONITOR Code(s): I73.9 - PERIPHERAL VASCULAR DISEASE, UNSPECIFIED (8) Right foot ulcer Assessment/Plan: WOUND CARE Code(s): L97.519 - NON-PRS CHRONIC ULCER OTH PRT RIGHT FOOT W UNSP SEVERITY Qualifiers: Non-pressure ulcer stage: unspecified non-pressure ulcer stage Qualified Code(s): L97.519 - Non-pressure chronic ulcer of other part of right foot with unspecified severity (9) Arrhythmia Assessment/Plan: CHECK MAG Code(s): I49.9 - CARDIAC ARRHYTHMIA, UNSPECIFIED Qualifiers: Premature depolarization type: ventricular Condition: Improved - Instructions Referrals: Christi Mendes MD [Primary Care Provider] - Jostin Gordillo MD [Staff Physician] - Disposition: [facility] F[facility] - Home Medications Comprehensive Discharge Medication List: Ambulatory Orders Clopidogrel Bisulfate [Plavix -] 75 mg PO DAILY 07/30/11 Sevelamer Carbonate [Renvela -] 1,600 mg PO ACBK 07/30/11 Vit B Cmplx 3/FA/Vit C/Biotin [Nephro-Coleman Rx Tablet] 1 each PO DAILY #0 tablet 08/04/11 Albuterol 0.083% Nebulizer Jerilyn [Ventolin 0.083% Nebulizer Soln -] 1 neb NEB Q6H PRN #1 vial 09/05/11 Aspirin Coated [Ecotrin -] 81 mg PO DAILY tablet.ec 03/30/16 Sitagliptin Phosphate [Januvia -] 25 mg PO DAILY@0700 tab 03/30/16 Pantoprazole Sodium [Protonix] 20 mg PO DAILY 07/07/16 Carvedilol [Coreg -] 6.25 mg PO BID tablet 07/29/16 Insulin Sliding Scale [Novolog Vial Sliding Scale -] 1 vial SQ ACHS units 07/29 Atorvastatin Ca [Lipitor] 20 mg PO HS tablet 08/07/16
[2016-08-07 08:52] LABS: MCH 28.3 pg (25.7-33.7); MCHC 30.9 g/dl (32.0-35.9); MEAN CELL VOLUME 91.8 fl (80-96); MEAN PLT VOLUME 9.3 fl (7.5-11.1); PLATELET COUNT 172 K/MM3 (134-434); RDW 15.8 % (11.9-15.9); WHITE BLOOD COUNT 8.4 K/mm3 (4.0-10.0)
[2016-08-07 09:25] LABS: CALCIUM 8.1 mg/dL (8.5-10.1); CREATININE 4.7 mg/dL (0.7-1.3); MAGNESIUM 1.6 mg/dL (1.8-2.4); PHOSPHOROUS 3.2 mg/dL (2.5-4.9)
[2016-08-07] MEDS ORDERED: LOSARTAN POTASSIUM 25 MG TABLET PO SCH (10:00)
--- NOTE | 2016-08-07 10:32 | PN ---
Progress Note, Physician History of Present Illness: Not orthostatic, ICD interrogation unrevealing, no sustained arrhythmias, normal device parameters, no longer hypoglycemic. - Current Medication List Current Medications: Active Medications Albuterol Sulfate (Ventolin 0.083% Nebulizer Soln -) 1 amp NEB Q6H PRN PRN Reason: SHORT OF BREATH/WHEEZING Last Admin: 08/07/16 03:56 Dose: 1 amp Atorvastatin Calcium (Lipitor -) 20 mg PO HS [facility] Last Admin: 08/06/16 22:15 Dose: 20 mg Calcium Carbonate (Calcium Carb Oral Suspension -) 500 mg PO Q6H PRN PRN Reason: INDIGESTION Carvedilol (Coreg -) 6.25 mg PO BID [facility] Last Admin: 08/06/16 22:15 Dose: 6.25 mg Clopidogrel Bisulfate (Plavix -) 75 mg PO DAILY [facility] Last Admin: 08/06/16 09:39 Dose: 75 mg Heparin Sodium (Porcine) (Heparin -) 5,000 unit SQ BID [facility] Last Admin: 08/06/16 22:20 Dose: 5,000 unit Insulin Aspart (Novolog Vial Sliding Scale -) 1 vial SQ ACHS [facility] PRN Reason: Protocol Last Admin: 08/07/16 06:55 Dose: Not Given Levothyroxine Sodium (Synthroid -) 25 mcg PO DAILY@0700 [facility] Last Admin: 08/07/16 07:47 Dose: Not Given Pantoprazole Sodium (Protonix -) 20 mg PO DAILY [facility] Last Admin: 08/06/16 09:39 Dose: 20 mg Sevelamer Carbonate (Renvela -) 1,600 mg PO DAILY@0800 [facility] Last Admin: 08/07/16 07:46 Dose: Not Given Sitagliptin Phosphate (Januvia -) 25 mg PO DAILY@0700 [facility] Last Admin: 08/07/16 07:47 Dose: Not Given - Objective Vital Signs: Vital Signs Temperature 98.0 F 08/07/16 07:25 Pulse Rate 53 L 08/07/16 09:29 Respiratory Rate 18 08/07/16 09:29 Blood Pressure 100/55 08/07/16 09:29 O2 Sat by Pulse Oximetry (%) 98 08/07/16 07:26 Labs: CBC, BMP 08/07/16 07:30 08/07/16 07:30 INR, PTT INR 1.35 (0.82-1.09) H 08/05/16 11:00 Problem List - Problems (1) Bradyarrhythmia Code(s): I49.8 - OTHER SPECIFIED CARDIAC ARRHYTHMIAS (2) Coronary artery disease Code(s): I25.10 - ATHSCL HEART DISEASE OF [place] CORONARY ARTERY W/O ANG PCTRS Qualifiers: Coronary Disease-Associated Artery/Lesion type: [place] artery [place] vs. transplanted heart: [place] heart Associated angina: without angina Qualified Code(s): I25.10 - Atherosclerotic heart disease of [place] coronary artery without angina pectoris (3) ESRD (end stage renal disease) Code(s): N18.6 - END STAGE RENAL DISEASE (4) H/O myocardial infarction, greater than 8 weeks Code(s): I25.2 - OLD MYOCARDIAL INFARCTION (5) Hyperlipidemia associated with type 2 diabetes mellitus Code(s): E11.69 - TYPE 2 DIABETES MELLITUS WITH OTHER SPECIFIED COMPLICATION E78.5 - HYPERLIPIDEMIA, UNSPECIFIED (6) Hypoglycemia Code(s): E16.2 - HYPOGLYCEMIA, UNSPECIFIED (7) Ischemic dilated cardiomyopathy Code(s): I25.5 - ISCHEMIC CARDIOMYOPATHY (8) Neurocardiogenic pre-syncope Code(s): R55 - SYNCOPE AND COLLAPSE (9) S/P CABG (coronary artery bypass graft) Code(s): Z95.1 - PRESENCE OF AORTOCORONARY BYPASS GRAFT (10) Single implantable cardioverter-defibrillator (ICD) in situ Code(s): Z95.810 - PRESENCE OF AUTOMATIC (IMPLANTABLE) CARDIAC DEFIBRILLATOR (11) HTN (hypertension) Code(s): I10 - ESSENTIAL (PRIMARY) HYPERTENSION Qualifiers: Hypertension type: essential hypertension Qualified Code(s): I10 - Essential (primary) hypertension (12) Hypercholesterolemia Code(s): E78.0 - PURE HYPERCHOLESTEROLEMIA * DO NOT USE * (13) Peripheral arterial disease Code(s): I73.9 - PERIPHERAL VASCULAR DISEASE, UNSPECIFIED (14) Right foot ulcer Code(s): L97.519 - NON-PRS CHRONIC ULCER OTH PRT RIGHT FOOT W UNSP SEVERITY Qualifiers: Non-pressure ulcer stage: unspecified non-pressure ulcer stage Qualified Code(s): L97.519 - Non-pressure chronic ulcer of other part of right foot with unspecified severity (15) Hypothyroidism Code(s): E03.9 - HYPOTHYROIDISM, UNSPECIFIED Qualifiers: Hypothyroidism type: unspecified Qualified Code(s): E03.9 - Hypothyroidism, unspecified Assessment/Plan 1. Possible syncopal episode, hypoglycemic episode 2. CAD, DC, S/P CABG, angina pectoris 3. Ischemic dilated cardiomyopathy S/P ICD ([employer]), history of failure 4. HTN/HCVD 5. Type 2 DM 6. Hypercholesterolemia 7. ESRD on HD MWF 8. Anemia due to chronic disease 9. PAD with right 2nd toe gangrene s/p infrapoplitial YARD COORDINATOR and right partial 2nd toe amputation 10. 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 Hypothyroidism PLAN: 1. Continue Carvedilol 6.25 mg bid and resume Losartan 25 mg qd on non HD days as hemodynamics tolerate 2. Continue ASA 81 mg qd and Plavix 75 mg qd, hypoglycemic agents on hold, Synthroid started 3. DVT and GI prophylaxis 4. HD with ultrafiltration as per Renal 5. ICD interrogation showed no sig arrhythmias, normal device paramenters 6. D/c planning
[2016-08-07] MEDS ORDERED: MAGNESIUM CL 64 MG TABLET.SA PO SCH (11:15)
[2016-08-07] MEDS: HEPARIN NA (PORCINE) 5,000 UNITS/ML 1ML VIAL SQ SCH (11:41)
[2016-08-07] MEDS: CLOPIDOGREL BISULFATE 75 MG TABLET (FP) PO SCH (11:42)
[2016-08-07] MEDS: CARVEDILOL 6.25 MG TABLET (FP) PO SCH (11:43)
[2016-08-07] MEDS: PANTOPRAZOLE 20 MG TABLET (FP) PO SCH (11:43)
--- NOTE | 2016-08-07 12:39 | PN ---
Progress Note (short form) - Note Progress Note: Renal Follow up for ESRD on HD Pt seen and examined with dialysis today BP low, UF goal reduced to 500cc pt denies any dizziness, chest pain or sob no N/V/D Vital Signs Temperature 97.2 F L 08/07/16 11:10 Pulse Rate 82 08/07/16 11:10 Respiratory Rate 18 08/07/16 11:10 Blood Pressure 109/52 08/07/16 11:10 O2 Sat by Pulse Oximetry (%) 98 08/07/16 07:26 Intake & Output 08/04/16 08/05/16 08/06/16 08/07/16 23:59 23:59 23:59 23:59 Intake Total 450 80 Balance 450 80 Weight 150 lb 141 lb 9.6 oz 139 lb 8 oz Gen: NAD, awake and alert CVS: RRR, No M/R Lungs: Dec BS at lung bases Abd: soft NT/ND Ext: No edema, clubbing or cyanosis Access: Right forearm AVF + thrill/bruits CBC, BMP 08/07/16 07:30 08/07/16 07:30 Current Medications Albuterol Sulfate (Ventolin 0.083% Nebulizer Soln -) 1 amp NEB Q6H PRN PRN Reason: SHORT OF BREATH/WHEEZING Last Admin: 08/07/16 03:56 Dose: 1 amp Atorvastatin Calcium (Lipitor -) 20 mg PO HS [facility] Last Admin: 08/06/16 22:15 Dose: 20 mg Calcium Carbonate (Calcium Carb Oral Suspension -) 500 mg PO Q6H PRN PRN Reason: INDIGESTION Carvedilol (Coreg -) 6.25 mg PO BID [facility] Last Admin: 08/07/16 11:43 Dose: Not Given Clopidogrel Bisulfate (Plavix -) 75 mg PO DAILY [facility] Last Admin: 08/07/16 11:42 Dose: 75 mg Heparin Sodium (Porcine) (Heparin -) 5,000 unit SQ BID [facility] Last Admin: 08/07/16 11:41 Dose: Not Given Insulin Aspart (Novolog Vial Sliding Scale -) 1 vial SQ ACHS [facility] PRN Reason: Protocol Last Admin: 08/07/16 11:41 Dose: Not Given Levothyroxine Sodium (Synthroid -) 25 mcg PO DAILY@0700 [facility] Last Admin: 08/07/16 11:42 Dose: 25 mcg Magnesium Chloride (Slow-Mag -) 64 mg PO DAILY [facility] Pantoprazole Sodium (Protonix -) 20 mg PO DAILY [facility] Last Admin: 08/07/16 11:43 Dose: 20 mg Sevelamer Carbonate (Renvela -) 1,600 mg PO DAILY@0800 [facility] Last Admin: 08/07/16 11:42 Dose: 1,600 mg Sitagliptin Phosphate (Januvia -) 25 mg PO DAILY@0700 [facility] Last Admin: 08/07/16 11:43 Dose: 25 mg A/P 81 year old Gentleman with PMhx of ESRD on HD (MWF @ [facility]), Hypertension, CAD s/p CABG, PVD who presented from [facility] w/p fall and admitterd for syncope. #ESRD on HD BP marginal today with treatment goal UF limited by hypotension off ARB given low bp #Syncope/Hx of CAD Tele Monitoring AICD interrogation showed no arrhythmias as per Cardiology On Coreg On Plavix #s/p LE Toe Amputation/PVD Continue Wound Care #CKD related Anemia Trend CBC Will start BENEDICT if Hgb less then 10 Thank you Will follow Zion Le DO
[2016-08-07] MEDS: ALBUMIN HUMAN 25% 100 ML VIAL IVPB SCH ×4 (13:15→14:45)
[2016-08-07 15:49] VITALS: BP 97/54; PULSE 52; TEMP 98.1
== END 2016-08-07 16:56 | DRG 638 ==
LOC: JER 10:10 → JERBED 13:08 → J4W 18:35
PROVIDERS: ADMIT Family Medicine; ATTEND Family Medicine
PROC: 5A1D60Z (ICD-10-PCS; principal; 2016-08-05)
DX: E11.649 Type 2 diabetes mellitus with hypoglycemia without coma (principal); I42.9 Cardiomyopathy, unspecified; I13.2 Hypertensive heart and chronic kidney disease with heart failure and with stage 5 chronic kidney disease, or end stage renal disease; I25.10 Atherosclerotic heart disease of native coronary artery without angina pectoris; Z95.1 Presence of aortocoronary bypass graft; E78.5 Hyperlipidemia, unspecified; I73.9 Peripheral vascular disease, unspecified; J45.909 Unspecified asthma, uncomplicated; Z89.421 Acquired absence of other right toe(s); Z95.810 Presence of automatic (implantable) cardiac defibrillator; I25.2 Old myocardial infarction; D63.1 Anemia in chronic kidney disease; I49.8 Other specified cardiac arrhythmias; N18.6 End stage renal disease; Z99.2 Dependence on renal dialysis; R55 Syncope and collapse; I50.9 Heart failure, unspecified; Z79.4 Long term (current) use of insulin
CPT/HCPCS: 36415; 70450-TC; 71010-TC; 80048; 80053; 82550; 82607; 82728; 83036; 83540; 83550; 83735; 83880; 84100; 84443; 84484; 85025; 85027; 85610; 86704; 86706; 86708; 87340; 93005; 93010; 94640; 97116-GP; 97162-PG; 99284-25; J1644

== ENCOUNTER 2016-08-13 16:03 | Inpatient (IN) | payer OTHER, BC ==
--- NOTE | 2016-08-13 16:31 | PDOC ---
History of Present Illness - General History Source: Patient Exam Limitations: No Limitations - History of Present Illness Initial Comments: 08/13/16 17:17 The patient is an 81 year old male, with a significant past medical history of asthma, CAD s/p NE and CABG(on plavix) cardiomyopathy with AICD, DM, PAD with amputated toes on right foot, left lower arm fistula, hypertension, hyperlipidemia, ESRD(dialysis M,W,F), and anemia, who presents to the emergency department BIBA from nursing for evaluation of gangrenous toes s/p amputation to the 3rd toe 2 weeks ago. The patient reports he has had amputation to 2 other toes in the right foot in the past(toe 1 and toe 4).The patient denies any pain to his right foot, and admits he has no sensation in his right foot. The patient reports his sensation is intact in his left foot. The patient states he was sent to the ED for evaluation of gangrenous toes by Dr. Blackmon. The patient reports chills, but denies fever, cough, headache, or dizziness. The patient denies any chest pain, shortness of breath, diaphoresis, or palpitations. The patient denies any abdominal pain, nausea, vomiting, diarrhea, or constipation. He reports minimal urinary output secondary to ESRD. The patient denies any recent travel or sick contacts. Allergies: None reported. Past Surgical History: Amputations to toes 1,3, and 4 of the right foot, Social History: Non-smoker. Denies alcohol or drug use. PCP: Dr. Mendes Surgeon: Dr. Blackmon <Darlene Carpenter - Last Filed: 08/13/16 17:16> <Kimberley Dolan - Last Filed: 08/15/16 10:07> - General Stated Complaint: FOOT INFECTION Time Seen by Provider: 08/13/16 16:24 Past History <Darlene Carpenter - Last Filed: 08/13/16 17:16> - Past Medical History Asthma: Yes Cancer: Yes (skin) Cardiac Disorders: Yes (cad) Diabetes: Yes Dialysis: Yes (left lower arm fistula) HTN: Yes Hypercholesterolemia: Yes - Surgical History Appendectomy: Yes Cardiac Surgery: Yes (open heart sx, triple bypass.) - Immunization History Immunization Up to Date: Yes - Psycho/Social/Smoking Cessation Hx Anxiety: No Suicidal Ideation: No Smoking Status: No Smoking History: Never smoked Have you smoked in the past 12 months: No Number of Cigarettes Smoked Daily: 0 Hx Alcohol Use: No Drug/Substance Use Hx: No Substance Use Type: None Hx Substance Use Treatment: No <DolanKimberley - Last Filed: 08/15/16 10:07> - Past Medical History Allergies/Adverse Reactions: Allergies Allergy/AdvReac Type Severity Reaction Status Date / Time No Known Allergies Allergy Verified 08/13/16 16:41 Home Medications: Ambulatory Orders Acetaminophen [Tylenol] 650 mg PO Q4HWA 08/13/16 Atorvastatin Ca [Lipitor] 40 mg PO HS 08/13/16 Calcium Carbonate Suspension - [Calcium Carb Oral Suspension -] 1,250 mg PO PRN 08/13/16 Carvedilol [Coreg -] 6.25 mg PO BID 08/13/16 Clopidogrel Bisulfate [Plavix -] 75 mg PO DAILY 08/13/16 Heparin - 5,000 unit SQ BID 08/13/16 Insulin Sliding Scale [Novolog Vial Sliding Scale -] 0 units SQ ACHS 08/13/16 Levothyroxine [Synthroid -] 25 mcg PO DAILY 08/13/16 Losartan Potassium [Cozaar -] 25 mg PO DAILY 08/13/16 Magnesium Chloride [Slow-Mag -] 64 mg PO DAILY 08/13/16 Pantoprazole Sodium [Protonix -] 20 mg PO DAILY 08/13/16 Ramipril [Altace] 5 mg PO DAILY 08/13/16 Rosuvastatin Calcium [Crestor] 10 mg PO HS 08/13/16 Sevelamer Carbonate [Renvela] 1,600 mg PO DAILY 08/13/16 Simvastatin 40 mg PO HS 08/13/16 Sitagliptin Phosphate [Januvia] 25 mg PO DAILY 08/13/16 Review of Systems - Review of Systems Able to Perform ROS?: Yes Comments:: 08/13/16 17:17 GENERAL/CONSTITUTIONAL: +Chills. No fever. No weakness. HEAD, EYES, EARS, NOSE AND THROAT: No change in vision. No ear pain or discharge. No sore throat. CARDIOVASCULAR: No chest pain or shortness of breath. RESPIRATORY: No cough, wheezing, or hemoptysis. GASTROINTESTINAL: No nausea, vomiting, diarrhea or constipation. GENITOURINARY: No dysuria, frequency, or change in urination. MUSCULOSKELETAL: No joint or muscle swelling or pain. No neck or back pain. SKIN: +Gangrenous toes on right foot s/p amputation NEUROLOGIC: No headache, vertigo, loss of consciousness, or change in strength/ sensation. ENDOCRINE: No increased thirst. No abnormal weight change. HEMATOLOGIC/LYMPHATIC: No anemia, easy bleeding, or history of blood clots. ALLERGIC/IMMUNOLOGIC: No hives or skin allergy. <Darlene Carpenter - Last Filed: 08/13/16 17:16> *Physical Exam - Vital Signs Last Vital Signs Temp Pulse Resp BP Pulse Ox 97.7 F 57 L 16 105/67 95 08/13/16 16:10 08/13/16 16:10 08/13/16 16:10 08/13/16 16:10 08/13/16 16:10 <Darlene Carpenter - Last Filed: 08/13/16 17:16> - Physical Exam Comments: GENERAL: Awake, alert, and oriented to person and place, in no acute distress HEAD: No signs of trauma EYES: PERRLA, EOMI, sclera anicteric, conjunctiva clear ENT: Auricles normal inspection, hearing grossly normal, nares patent, oropharynx clear without exudates. Moist mucosa NECK: Normal ROM, supple, no lymphadenopathy, JVD, or masses LUNGS: Breath sounds equal, clear to auscultation bilaterally. No wheezes, and no crackles HEART: Regular rate and rhythm, normal S1 and S2, no murmurs, rubs or gallops ABDOMEN: Soft, nontender, normoactive bowel sounds. No guarding, no rebound. No masses EXTREMITIES: R foot with gangrene to the ball of the foot as well as the 1st, 3rd and 4th toes. Remainder of extremities with normal range of motion. No clubbing or cyanosis. No cords, erythema, or tenderness NEUROLOGICAL: Cranial nerves II through XII grossly intact. Normal speech, normal gait SKIN: Warm, Dry, normal turgor, no rashes or lesions noted. <Kimberley Dolan - Last Filed: 08/15/16 10:07> Heart Score/ECG Review - ECG Impressions Comment:: EKG 17:39- V-paced 57 bpm <Kimberley Dolan - Last Filed: 08/15/16 10:07> ED Treatment Course - LABORATORY CBC & Chemistry Diagram: 08/15/16 06:00 08/15/16 06:00 <Kimberley Dolan - Last Filed: 08/15/16 10:07> Medical Decision Making - Medical Decision Making 08/13/16 16:50 First call placed to Dr. Blackmon at 15:50. Dr. Sotomayor states he will come see the patient in the ED in 15 minutes. <Darlene Carpenter - Last Filed: 08/13/16 17:16> - Medical Decision Making 08/13/16 17:40 Case d/w Dr. Blackmon, in ED to see patient. I will give zosyn. I have admitted to Dr. Mendes's service, discussed case via phone with Dr. Hale. <Kimberley Dolan - Last Filed: 08/15/16 10:07> *DC/Admit/Observation/Transfer - Attestations Scribe Attestion: 08/13/16 17:18 Documentation prepared by Darlene Carpenter, acting as medical unit secretary for Kimberley Dolan MD. <Darleen Carpenter - Last Filed: 08/13/16 17:16> - Discharge Dispostion Admit: Yes <Kimberley Dolan - Last Filed: 08/15/16 10:07> Diagnosis at time of Disposition: Gangrene - Discharge Dispostion Condition at time of disposition: Stable - Referrals
[2016-08-13 17:31] LABS: BASOPHIL 1.2 % (0-2.0); EOSINOPHIL 11.5 % (0-4.5); MCH 28.2 pg (25.7-33.7); MEAN CELL VOLUME 91.2 fl (80-96); MEAN PLT VOLUME 9.5 fl (7.5-11.1); NEUTROPHILS 62.8 % (42.8-82.8); PLATELET COUNT 201 K/MM3 (134-434); RDW 15.5 % (11.9-15.9); WHITE BLOOD COUNT 8.8 K/mm3 (4.0-10.0)
[2016-08-13] MEDS ORDERED: PIPERACILLIN/TAZOB 3.375 GM 3.375 GM in DEXTROSE 5%-WATER - 50 ML IVPB ONE (17:40)
--- NOTE | 2016-08-13 17:45 | CONSULT ---
Consult - History of Present Illness History of Present Illness: 81 year old male with recent tibial revascularization for non-healing right toe wound. He subsequently had a toe amputation by Podiatry and returned to SNF. He now presents with gangrene of the plantar aspect of the right foot skin. No pain. Not walking. - Past Medical History Cardio/Vascular: Yes: CAD, [place], Other (cardiomyopathy ICD [facility]). No: AFIB, HTN, Mitral Stenosis, Pulmonary Hypertension Pulmonary: Yes: Cancer, COPD Renal/: Yes: Renal Failure, Hemodialysis Endocrine: Yes: Diabetes Mellitus - Past Surgical History Past Surgical History: Yes: AICD, CABG, Colonoscopy - Alcohol/Substance Use Hx Alcohol Use: No History of Substance Use: reports: None - Smoking History Smoking history: Never smoked Have you smoked in the past 12 months: No Aproximately how many cigarettes per day: 0 - Social History ADL: Independent History of Recent Travel: No Home Medications - Allergies Allergies/Adverse Reactions: Allergies Allergy/AdvReac Type Severity Reaction Status Date / Time No Known Allergies Allergy Verified 08/13/16 16:41 - Home Medications Home Medications: Ambulatory Orders Vit B Cmplx 3/FA/Vit C/Biotin [Nephro-Coleman Rx Tablet] 1 each PO DAILY #0 tablet 08/04/11 Albuterol 0.083% Nebulizer Jerilyn [Ventolin 0.083% Nebulizer Soln -] 1 neb NEB Q6H PRN #1 vial 08/07/16 Aspirin Coated [Ecotrin -] 81 mg PO DAILY #0 tablet.ec 08/07/16 Atorvastatin Ca [Lipitor] 20 mg PO HS tablet 08/07/16 Carvedilol [Coreg -] 6.25 mg PO BID #0 tablet 08/07/16 Clopidogrel Bisulfate [Plavix -] 75 mg PO DAILY #0 08/07/16 Insulin Sliding Scale [Novolog Vial Sliding Scale -] 1 vial SQ ACHS #0 units Pantoprazole Sodium [Protonix] 20 mg PO DAILY #0 08/07/16 Sevelamer Carbonate [Renvela -] 1,600 mg PO ACBK #0 08/07/16 Sitagliptin Phosphate [Januvia -] 25 mg PO DAILY@0700 #0 tab 08/07/16 Family Disease History - Family Disease History Family Disease History: Diabetes: Brother, Heart Disease: Brother, [place]: Brother Physical Exam Vital Signs: Vital Signs Temperature 97.7 F 08/13/16 16:10 Pulse Rate 57 L 08/13/16 16:10 Respiratory Rate 16 08/13/16 16:10 Blood Pressure 105/67 08/13/16 16:10 O2 Sat by Pulse Oximetry (%) 95 08/13/16 16:10 Constitutional: Yes: Calm Extremities: Yes: Other (Right plantar skin necrotic distal to metatarsal heads. Old sutures in necrotic 3rd toe.) Peripheral Pulses WNL: No (Palpable right DP.) Labs: CBC, BMP 08/13/16 17:00 Problem List - Problems (1) Gangrene of foot Assessment/Plan: Gangrene of right forefoot with intact DP pulse following angioplasty. Unclear if this is due to worsening infection or embolization from atherectomy. Plan IV antibiotics. I will schedule for transmetatarsal amputation when medically cleared. Code(s): I96 - GANGRENE, NOT ELSEWHERE CLASSIFIED
[2016-08-13 17:59] LABS: INR 1.4 (0.82-1.09); PROTHROMBIN TIME (PATIENT) 15.5 SEC (9.98-11.88)
[2016-08-13 18:02] LABS: ACTIVATED PTT 33.9 SECONDS (26.9-34.4)
[2016-08-13 18:09] LABS: BILIRUBIN,TOTAL 0.7 mg/dL (0.2-1.0); CALCIUM 8.5 mg/dL (8.5-10.1); TOT PROT 6.5 g/dl (6.4-8.2)
[2016-08-13] MEDS ORDERED: PIPERACILLIN/TAZOB 3.375 GM 50 ML IVPB ONE (18:12)
[2016-08-13] MEDS ORDERED: diphenhydrAMINE HCL 25 MG CAPSULE (FP) PO PRN (18:41)
[2016-08-13] MEDS ORDERED: CALCIUM CARBONATE SUSPENSION - 500 MG/5 ML ML PO PRN (18:45)
[2016-08-13] MEDS ORDERED: PATIENT'S OWN MEDICATION (NON-FORMULARY) (Simvastatin [Simvastatin] 40 MG) PO SCH (22:00)
[2016-08-13] MEDS: INSULIN SLIDING SCALE (NOVOLOG) 1 VIAL SQ SCH (22:28)
[2016-08-13] MEDS: HEPARIN NA (PORCINE) 5,000 UNITS/ML 1ML VIAL SQ SCH (22:29)
[2016-08-13] MEDS: CARVEDILOL 6.25 MG TABLET (FP) PO SCH (22:29)
[2016-08-13] MEDS: ATORVASTATIN CA 20 MG TABLET (FP) PO SCH (22:30)
[2016-08-14 00:15] VITALS: BMI 23.6
[2016-08-14] MEDS: ACETAMINOPHEN 325 MG TABLET (FP) PO SCH ×5 (01:05→18:26)
[2016-08-14] MEDS: ALBUTEROL SO4 0.083% IH SOL 2.5 MG/3 ML VIAL.NEB. NEB PRN (01:22)
[2016-08-14] MEDS ORDERED: INSULIN (NOVOLOG) ASPART 100 UNITS/ML 10ML VIAL ONE (06:25)
[2016-08-14] MEDS: LEVOTHYROXINE NA 25 MCG TABLET (FP) PO SCH (06:37)
[2016-08-14 06:48] LABS: BASOPHIL 1.3 % (0-2.0); EOSINOPHIL 13.2 % (0-4.5); MCHC 30.7 g/dl (32.0-35.9); MEAN CELL VOLUME 91.3 fl (80-96); MEAN PLT VOLUME 9.2 fl (7.5-11.1); NEUTROPHILS 61.9 % (42.8-82.8); PLATELET COUNT 154 K/MM3 (134-434); RDW 15.3 % (11.9-15.9); WHITE BLOOD COUNT 8.5 K/mm3 (4.0-10.0)
[2016-08-14 07:00] LABS: ALBUMIN 2.7 g/dl (3.4-5.0); CALCIUM 8.4 mg/dL (8.5-10.1)
[2016-08-14 07:06] LABS: BILIRUBIN,TOTAL 0.7 mg/dL (0.2-1.0); CREATININE 4.4 mg/dL (0.7-1.3)
[2016-08-14] MEDS: INSULIN SLIDING SCALE (NOVOLOG) 1 VIAL SQ SCH ×4 (07:19→21:39)
[2016-08-14] MEDS: SEVELAMER CARBONATE 800 MG TAB (FP) PO SCH (07:29)
[2016-08-14] MEDS: sitaGLIPtin PHOSPHATE 25 MG TABLET (FP) PO SCH (07:30)
[2016-08-14] MEDS ORDERED: LOSARTAN POTASSIUM 25 MG TABLET PO SCH (10:00)
--- NOTE | 2016-08-14 10:07 | EKG ---
Test Reason : Blood Pressure : / mmHG Vent. Rate : 057 BPM Atrial Rate : 057 BPM P-R Int : 000 ms QRS Dur : 152 ms QT Int : 502 ms P-R-T Axes : 000 -73 103 degrees QTc Int : 488 ms Atrial-sensed ventricular-paced rhythm NONSPECIFIC T WAVE ABNORMALITY WHEN COMPARED WITH ECG OF 06-AUG-2016 08:51, PREMATURE VENTRICULAR COMPLEXES ARE NO LONGER PRESENT VENT. RATE HAS DECREASED BY 6 BPM Confirmed by DOLORES ROBERT MD ([id number]) on 08/14/2016 10:07:01 AM Referred By: Confirmed By:DOLORES ROBERT MD
[2016-08-14] MEDS: HEPARIN NA (PORCINE) 5,000 UNITS/ML 1ML VIAL SQ SCH ×2 (10:13→21:33)
--- NOTE | 2016-08-14 10:20 | HP ---
Admitting History and Physical - Primary Care Physician PCP: Christi Mendes - Admission Chief Complaint: sent in for gnagreene foot History of Present Illness: The patient is an 81 year old male, with a significant past medical history of asthma, CAD s/p [place] and CABG(on plavix) cardiomyopathy with AICD, DM, PAD with amputated toes on right foot, left lower arm fistula, hypertension, hyperlipidemia, ESRD(dialysis M,W,F), and anemia, who presents to the emergency department BIBA from nursing for evaluation of gangrenous toes s/p amputation to the 3rd toe 2 weeks ago. The patient reports he has had amputation to 2 other toes in the right foot in the past(toe 1 and toe 4).The patient denies any pain to his right foot, and admits he has no sensation in his right foot. The patient reports his sensation is intact in his left foot. The patient states he was sent to the ED for evaluation of gangrenous toes by Dr. Blackmon. The patient reports chills, but denies fever, cough, headache, or dizziness. The patient denies any chest pain, shortness of breath, diaphoresis, or palpitations. The patient denies any abdominal pain, nausea, vomiting, diarrhea, or constipation. He reports minimal urinary output secondary to ESRD. The patient denies any recent travel or sick contacts. Allergies: None reported. Past Surgical History: Amputations to toes 1,3, and 4 of the right foot, Social History: Non-smoker. Denies alcohol or drug use. PCP: Dr. Mendes Surgeon: Dr. Blackmon in ER he maria d braden seen by dr salas History Source: Medical Record - Past Medical History Cardiovascular: Yes: CAD, [place], Other (cardiomyopathy ICD [facility]). No: AFIB, HTN, Mitral Stenosis, Pulmonary Hypertension Pulmonary: Yes: Cancer, COPD Renal/: Yes: Renal Failure, Hemodialysis Heme/Onc: Yes: Anemia Endocrine: Yes: Diabetes Mellitus - Past Surgical History Past Surgical History: Yes: AICD, CABG, Colonoscopy - Advance Directives Advance Directives: Yes: DNR - Smoking History Smoking history: Never smoked Have you smoked in the past 12 months: No Aproximately how many cigarettes per day: 0 - Alcohol/Substance Use Hx Alcohol Use: No History of Substance Use: reports: None - Social History ADL: Independent History of Recent Travel: No Home Medications - Allergies Allergies/Adverse Reactions: Allergies Allergy/AdvReac Type Severity Reaction Status Date / Time No Known Allergies Allergy Verified 08/13/16 16:41 - Home Medications Home Medications: Ambulatory Orders Acetaminophen [Tylenol] 650 mg PO Q4HWA 08/13/16 Atorvastatin Ca [Lipitor] 40 mg PO HS 08/13/16 Calcium Carbonate Suspension - [Calcium Carb Oral Suspension -] 1,250 mg PO PRN 08/13/16 Carvedilol [Coreg -] 6.25 mg PO BID 08/13/16 Clopidogrel Bisulfate [Plavix -] 75 mg PO DAILY 08/13/16 Heparin - 5,000 unit SQ BID 08/13/16 Insulin Sliding Scale [Novolog Vial Sliding Scale -] 0 units SQ ACHS 08/13/16 Levothyroxine [Synthroid -] 25 mcg PO DAILY 08/13/16 Losartan Potassium [Cozaar -] 25 mg PO DAILY 08/13/16 Magnesium Chloride [Slow-Mag -] 64 mg PO DAILY 08/13/16 Pantoprazole Sodium [Protonix -] 20 mg PO DAILY 08/13/16 Ramipril [Altace] 5 mg PO DAILY 08/13/16 Rosuvastatin Calcium [Crestor] 10 mg PO HS 08/13/16 Sevelamer Carbonate [Renvela] 1,600 mg PO DAILY 08/13/16 Simvastatin 40 mg PO HS 08/13/16 Sitagliptin Phosphate [Januvia] 25 mg PO DAILY 08/13/16 Family Disease History - Family Disease History Family Disease History: Diabetes: Brother, Heart Disease: Brother, [place]: Brother Review of Systems - Review of Systems Cardiovascular: reports: No Symptoms Respiratory: reports: No Symptoms Physical Examination Vital Signs: Vital Signs Temperature 97.6 F 08/14/16 06:00 Pulse Rate 74 08/14/16 06:00 Respiratory Rate 18 08/14/16 06:00 Blood Pressure 108/57 08/14/16 06:00 O2 Sat by Pulse Oximetry (%) 98 08/13/16 22:00 Constitutional: Yes: Calm Neck: Yes: Trachea Midline Cardiovascular: Yes: Regular Rate and Rhythm, S1, S2 Respiratory: Yes: CTA Bilaterally Gastrointestinal: Yes: Normal Bowel Sounds, Soft Extremities: Yes: Other (right foot 3 toe amupation suture seen black gangrene of plantar aspect of foot) Neurological: Yes: Alert, Oriented (to name) Labs: CBC, BMP 08/14/16 05:00 08/14/16 05:00 Imaging - Results X-ray: Report Reviewed Problem List - Problems (1) Gangrene of foot Assessment/Plan: seen by vsculaar needs amputation possible next week hold plavix for a few days cardio clearance iv abx ID eval Code(s): I96 - GANGRENE, NOT ELSEWHERE CLASSIFIED (2) Anemia Assessment/Plan: sec to CKD eufemia follow Code(s): D64.9 - ANEMIA, UNSPECIFIED Qualifiers: Anemia type: other cause Other causes of anemia: chronic disease, kidney Qualified Code(s): N18.9 - Chronic kidney disease, unspecified; D63.1 - Anemia in chronic kidney disease (3) Coronary artery disease Assessment/Plan: on plavix will need to hold for amputation of foot Code(s): I25.10 - ATHSCL HEART DISEASE OF [place] CORONARY ARTERY W/O ANG PCTRS Qualifiers: Coronary Disease-Associated Artery/Lesion type: [place] artery [place] vs. transplanted heart: [place] heart Associated angina: without angina Qualified Code(s): I25.10 - Atherosclerotic heart disease of [place] coronary artery without angina pectoris (4) ESRD (end stage renal disease) Assessment/Plan: HD per renal MWF schedule Code(s): N18.6 - END STAGE RENAL DISEASE (5) Hypothyroidism Assessment/Plan: tsh synthroid Code(s): E03.9 - HYPOTHYROIDISM, UNSPECIFIED Qualifiers: Hypothyroidism type: unspecified Qualified Code(s): E03.9 - Hypothyroidism, unspecified (6) Diabetes Assessment/Plan: bgsandra murphy will hold sliding scale hga1c lipid panel Code(s): E11.9 - TYPE 2 DIABETES MELLITUS WITHOUT COMPLICATIONS Qualifiers: Diabetes mellitus type: type 2 Chronic kidney disease stage: on chronic dialysis
[2016-08-14] MEDS ORDERED: PIPERACILLIN/TAZOB 3.375 GM/50 ML PRE-DOCKED IVPB ONE (11:00)
[2016-08-14] MEDS ORDERED: VANCOMYCIN 1,000 MG in DEXTROSE 5%-WATER - 250 ML IVPB ONE (11:04)
--- NOTE | 2016-08-14 11:08 | PN ---
Progress Note (short form) - Note Progress Note: ID Consult dictated Gangrene R foot Possible cellulitis R foot ESRD Await c/s Empiric zosyn/ vancomycin, renally adjusted For TMA
--- NOTE | 2016-08-14 12:05 | CONS ---
DATE OF CONSULTATION: DATE OF DICTATION: 08/14/2016 HISTORY OF PRESENT ILLNESS: The patient is an 81-year-old male evaluated for gangrene of the right foot. Patient has a history of peripheral vascular disease and left ventricular dysfunction. He has had recent hospital admissions over the past 2 months for gangrene of the right 2nd toe and syncope. He underwent partial amputation of the right 2nd toe on July 27, 2016. He now returns with worsening gangrene of the right foot. He was evaluated in the emergency room, where he was found to have dry gangrene involving the distal aspect of the plantar surface of the right foot as well as the right 2nd toe amputation site and the tips of the 3rd and 4th toes. No reports of fever, although he had been experiencing chills. No reports of purulent wound drainage. The patient was treated in the recent past for right toe wound and underwent revascularization. He ultimately required partial amputation of the right 2nd toe. PAST MEDICAL HISTORY: Positive for end-stage renal disease on hemodialysis, peripheral vascular disease, hypertension, diabetes, coronary artery disease, myocardial infarction, bronchial asthma. PAST SURGICAL HISTORY: Status post left AV fistula, coronary artery bypass, appendectomy, defibrillator. ALLERGIES: No known allergies. MEDICATIONS: Include Tylenol, Cozaar, Altace, heparin, Coreg, Januvia, Benadryl, Lipitor, Protonix, Synthroid. SOCIAL HISTORY: He was residing in a [facility] facility. No active tobacco or alcohol use. SYSTEMS REVIEW: Neurologic: No loss of consciousness, seizure activity, or focal weakness. Cardiac: Negative for chest pain or palpitations. Respiratory: Negative for cough or sputum production. Gastrointestinal: Negative for vomiting or diarrhea. Genitourinary: Positive for end-stage renal disease, on hemodialysis. LABORATORY DATA: White count 8.5, hematocrit 35.6, platelet count 154. Creatinine 4.4. Blood cultures pending. PHYSICAL EXAMINATION: General: He is chronically ill-appearing. Vital signs: Temperature 97.6, blood pressure 108/57, pulse 68 and regular, respirations 18 per minute. HEENT: Sclerae anicteric. Heart: Heart sounds S1, S2. Lungs: Diminished breath sounds at the bases bilaterally. Abdomen: Slightly distended, tympanitic. No tenderness elicited. No mass, rebound, or rigidity. Extremities: Examination of the left foot, the distal aspect of the toes appear somewhat dusky. Examination of the right foot, there is dry gangrene involving the plantar aspect of the right foot distally from the area of the metatarsal heads to the toes. He has dry gangrene involving the amputation site of the right 2nd toe as well as tips of the right 3rd and 4th toes. IMPRESSION: 1. Gangrene, right foot. 2. Possible cellulitis, right foot. 3. End-stage renal disease, on hemodialysis. Patient with dry gangrene of the distal right foot, possibly with a secondary cellulitic component. Agree with transmetatarsal amputation. Pending cultures, empiric antibiotic coverage with Zosyn and vancomycin adjusted for renal failure. Will follow. Thank you for the kind referral. DOLORES HARTMANN M.D. [id number]
--- NOTE | 2016-08-14 12:55 | CON.CARD ---
Consult Consult Specialty:: Cardiology Referred by:: Christi Mendes MD Reason for Consultation:: Right foot gangrene - History of Present Illness Chief Complaint: Right foot gangrene History of Present Illness: Patient is an 81 year old male well known to our service with underlying history of ESRD on HD (MWF), CAD S/P DC, S/P CABG (CACERES to LAD-D1, SVG to OM1, SVG to RPDA), ischemic cardiomyopathy with history of failure, S/P ICD (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 - History Source History Provided By: Patient Limitations to Obtaining History: No Limitations - Past Medical History Cardio/Vascular: Yes: CAD, DC, Other (cardiomyopathy ICD [facility]). No: AFIB, HTN, Mitral Stenosis, Pulmonary Hypertension Pulmonary: Yes: Cancer, COPD Renal/: Yes: Renal Failure, Hemodialysis Endocrine: Yes: Diabetes Mellitus - Past Surgical History Past Surgical History: Yes: AICD, Amputation, CABG, Colonoscopy, Permanent Pacemaker - Alcohol/Substance Use Hx Alcohol Use: No History of Substance Use: reports: None - Smoking History Smoking history: Never smoked Have you smoked in the past 12 months: No Aproximately how many cigarettes per day: 0 - Social History ADL: Independent History of Recent Travel: No Home Medications - Allergies Allergies/Adverse Reactions: Allergies Allergy/AdvReac Type Severity Reaction Status Date / Time No Known Allergies Allergy Verified 08/13/16 16:41 - Home Medications Home Medications: Ambulatory Orders Acetaminophen [Tylenol] 650 mg PO Q4HWA 08/13/16 Atorvastatin Ca [Lipitor] 40 mg PO HS 08/13/16 Calcium Carbonate Suspension - [Calcium Carb Oral Suspension -] 1,250 mg PO PRN 08/13/16 Carvedilol [Coreg -] 6.25 mg PO BID 08/13/16 Clopidogrel Bisulfate [Plavix -] 75 mg PO DAILY 08/13/16 Heparin - 5,000 unit SQ BID 08/13/16 Insulin Sliding Scale [Novolog Vial Sliding Scale -] 0 units SQ ACHS 08/13/16 Levothyroxine [Synthroid -] 25 mcg PO DAILY 08/13/16 Losartan Potassium [Cozaar -] 25 mg PO DAILY 08/13/16 Magnesium Chloride [Slow-Mag -] 64 mg PO DAILY 08/13/16 Pantoprazole Sodium [Protonix -] 20 mg PO DAILY 08/13/16 Ramipril [Altace] 5 mg PO DAILY 08/13/16 Rosuvastatin Calcium [Crestor] 10 mg PO HS 08/13/16 Sevelamer Carbonate [Renvela] 1,600 mg PO DAILY 08/13/16 Simvastatin 40 mg PO HS 08/13/16 Sitagliptin Phosphate [Januvia] 25 mg PO DAILY 08/13/16 Family Disease History - Family Disease History Family Disease History: Diabetes: Brother, Heart Disease: Brother, CA: Brother Vital Signs: Vital Signs Temperature 97.6 F 08/14/16 06:00 Pulse Rate 74 08/14/16 06:00 Respiratory Rate 18 08/14/16 06:00 Blood Pressure 108/57 08/14/16 06:00 O2 Sat by Pulse Oximetry (%) 98 08/13/16 22:00 Constitutional: Yes: No Distress, Calm Neck: Yes: Supple Respiratory: Yes: Regular, Diminished Gastrointestinal: Yes: Normal Bowel Sounds, Soft Cardiovascular: Yes: Regular Rate and Rhythm JVD: No Carotid Bruit: No Heart Sounds: Yes: S1, S2 Murmur: Yes: Systolic Murmur, Grade 1 Extremities: Yes: Amputation, Other (RIght forefoot skin necrosis) Edema: No - Other Data Labs, Other Data: CBC, BMP 08/14/16 05:00 08/14/16 05:00 INR, PTT INR 1.40 (0.82-1.09) H 08/13/16 17:00 A-sensed, v-paced @ 57 Prior Cardiac Procedures: CABG Ejection Fraction %: LVEF < 40 % Imaging - Results Chest X-ray: Report Reviewed (NAD) Problem List - Problems (1) Coronary artery disease Code(s): I25.10 - ATHSCL HEART DISEASE OF [place] CORONARY ARTERY W/O ANG PCTRS Qualifiers: Coronary Disease-Associated Artery/Lesion type: [place] artery [place] vs. transplanted heart: [place] heart Associated angina: without angina Qualified Code(s): I25.10 - Atherosclerotic heart disease of [place] coronary artery without angina pectoris (2) Gangrene of foot Code(s): I96 - GANGRENE, NOT ELSEWHERE CLASSIFIED (3) Hyperlipidemia associated with type 2 diabetes mellitus Code(s): E11.69 - TYPE 2 DIABETES MELLITUS WITH OTHER SPECIFIED COMPLICATION E78.5 - HYPERLIPIDEMIA, UNSPECIFIED (4) Ischemic dilated cardiomyopathy Code(s): I25.5 - ISCHEMIC CARDIOMYOPATHY (5) S/P CABG (coronary artery bypass graft) Code(s): Z95.1 - PRESENCE OF AORTOCORONARY BYPASS GRAFT (6) Single implantable cardioverter-defibrillator (ICD) in situ Code(s): Z95.810 - PRESENCE OF AUTOMATIC (IMPLANTABLE) CARDIAC DEFIBRILLATOR (7) Amputated toe of right foot Code(s): Z89.421 - ACQUIRED ABSENCE OF OTHER RIGHT TOE(S) (8) ESRD (end stage renal disease) Code(s): N18.6 - END STAGE RENAL DISEASE (9) HTN (hypertension) Code(s): I10 - ESSENTIAL (PRIMARY) HYPERTENSION Qualifiers: Hypertension type: essential hypertension Qualified Code(s): I10 - Essential (primary) hypertension (10) Hypercholesterolemia Code(s): E78.0 - PURE HYPERCHOLESTEROLEMIA * DO NOT USE * (11) Hypothyroidism Code(s): E03.9 - HYPOTHYROIDISM, UNSPECIFIED Qualifiers: Hypothyroidism type: unspecified Qualified Code(s): E03.9 - Hypothyroidism, unspecified (12) Right foot ulcer Code(s): L97.519 - NON-PRS CHRONIC ULCER OTH PRT RIGHT FOOT W UNSP SEVERITY Qualifiers: Non-pressure ulcer stage: unspecified non-pressure ulcer stage Qualified Code(s): L97.519 - Non-pressure chronic ulcer of other part of right foot with unspecified severity (13) Neurocardiogenic pre-syncope Code(s): R55 - SYNCOPE AND COLLAPSE (14) Pre-operative cardiovascular examination Code(s): Z01.810 - ENCOUNTER FOR PREPROCEDURAL CARDIOVASCULAR EXAMINATION Assessment/Plan 1. 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 CAD, DC, S/P CABG, angina pectoris 3. Ischemic dilated cardiomyopathy S/P ICD ([facility]), history of failure 4. HTN/HCVD 5. Type 2 DM 6. Hypercholesterolemia 7. ESRD on HD MWF 8. Anemia due to chronic disease 9. Orthostatic near syncope 10. Hypothyroidism PLAN: 1. Empiric abx, f/u C&S, plan for TMA 2. Continue Carvedilol 6.25 mg bid, Lipitor 20 qhs and Altace 5 mg qd on non HD days as hemodynamics tolerate 2. Hold Plavix 75 mg qd pending right TMA 3. DVT and GI prophylaxis 4. HD with ultrafiltration as per Renal 5. Recent ICD interrogation showed no sig arrhythmias, normal device paramenters 6. May proceed with TMA from CV standpoint 7. Thank you for consultative opportunity
[2016-08-14] MEDS ORDERED: EPOETIN ALFA 2,000 UNITS/1 ML VIAL IVPUSH ONE (13:00)
[2016-08-14] MEDS: MIDODRINE HCL 5 MG TABLET PO SCH (13:26)
--- NOTE | 2016-08-14 13:29 | CONSULT ---
Consult - text type - Consultation Consultation Note: Renal Consult for ESRD on HD This is a 81 year old Gentleman with PMhx of ESRD on HD (MWF @ [facility]), Hypertension, CAD s/p CABG, PVD s/p recent toe amputation presents with worsening gangrene of his right foot. Pt denies any fever or chill. Denies any pain in the foot. Has continued sensation in the foot. No sob or chest pain. last dialysis was Wednesday. No abd pain, N/V/D. Regular HD orders: 3 hours 15 minutes, 3K/2.5Ca bath, DW 63.5kg PMhx: as above Allergies: NKDA Family Hx: NC Social Hx: No T/A/D ROS: as per HPI Home Meds: Home Medications Medication Instructions Recorded Acetaminophen [Tylenol] 650 mg PO Q4HWA 08/13/16 Atorvastatin Ca [Lipitor] 40 mg PO HS 08/13/16 Calcium Carbonate Suspension - 1,250 mg PO PRN 08/13/16 [Calcium Carb Oral Suspension -] Carvedilol [Coreg -] 6.25 mg PO BID 08/13/16 Clopidogrel Bisulfate [Plavix -] 75 mg PO DAILY 08/13/16 Heparin - 5,000 unit SQ BID 08/13/16 Insulin Sliding Scale [Novolog 0 units SQ ACHS 08/13/16 Vial Sliding Scale -] Levothyroxine [Synthroid -] 25 mcg PO DAILY 08/13/16 Losartan Potassium [Cozaar -] 25 mg PO DAILY 08/13/16 Magnesium Chloride [Slow-Mag -] 64 mg PO DAILY 08/13/16 Pantoprazole Sodium [Protonix -] 20 mg PO DAILY 08/13/16 Ramipril [Altace] 5 mg PO DAILY 08/13/16 Rosuvastatin Calcium [Crestor] 10 mg PO HS 08/13/16 Sevelamer Carbonate [Renvela] 1,600 mg PO DAILY 08/13/16 Simvastatin 40 mg PO HS 08/13/16 Sitagliptin Phosphate [Januvia] 25 mg PO DAILY 08/13/16 Vital Signs Temperature 97.6 F 08/14/16 06:00 Pulse Rate 74 08/14/16 06:00 Respiratory Rate 18 08/14/16 06:00 Blood Pressure 108/57 08/14/16 06:00 O2 Sat by Pulse Oximetry (%) 98 08/13/16 22:00 Gen: NAD, awake and alert HEENT: NC/AT, MMM, No JVD CVS: RRR, No M/R Lungs: Dec BS at lung bases Abd: soft NT/ND Ext: + gangrene on right foot, + pretibial pulse NEuro: No focal defects Access: Right forearm AVF + thrill/bruits CBC, BMP 08/14/16 05:00 08/14/16 05:00 Laboratory Tests 08/14/16 05:00 Calcium 8.4 L Albumin 2.7 L Current Medications Acetaminophen (Tylenol -) 650 mg PO Q6HPO [facility] Last Admin: 08/14/16 08:25 Dose: Not Given Albumin Human (Albumin Human 25% -) 12.5 gm IVPB Q30M [facility] Stop: 08/14/16 14:31 Albuterol Sulfate (Ventolin 0.083% Nebulizer Soln -) 1 amp NEB Q4H PRN PRN Reason: SHORT OF BREATH/WHEEZING Last Admin: 08/14/16 01:22 Dose: 1 amp Atorvastatin Calcium (Lipitor -) 20 mg PO HS [facility] Last Admin: 08/13/16 22:30 Dose: Not Given Calcium Carbonate (Calcium Carb Oral Suspension -) 500 mg PO DAILY PRN PRN Reason: INDIGESTION Carvedilol (Coreg -) 6.25 mg PO BID [facility] Clopidogrel Bisulfate (Plavix -) 75 mg PO DAILY [facility] Diphenhydramine HCl (Benadryl -) 25 mg PO Q6H PRN PRN Reason: pm\ Heparin Sodium (Porcine) (Heparin -) 5,000 unit SQ BID [facility] Last Admin: 08/14/16 10:13 Dose: Not Given Piperacillin Sod/Tazobactam Sod (Zosyn 2.25gm Ivpb (Pre-Docked)) 50 mls @ 100 mls/hr IVPB Q8H-IV [facility] PRN Reason: Protocol Vancomycin HCl 1,000 mg/ (Dextrose) 250 mls @ 250 mls/hr IVPB ONCE ONE PRN Reason: Protocol Stop: 08/14/16 13:59 Insulin Aspart (Novolog Vial Sliding Scale -) 1 vial SQ ACHS [facility] PRN Reason: Protocol Last Admin: 08/14/16 13:02 Dose: Not Given Levothyroxine Sodium (Synthroid -) 25 mcg PO DAILY@0700 [facility] Last Admin: 08/14/16 06:37 Dose: 25 mcg Magnesium Chloride (Slow-Mag -) 64 mg PO DAILY [facility] Midodrine (Proamatine -) 10 mg PO MoWeFr@1000 [facility] Multivit/Ca Carb/B Cmplx/FA/Prenat (Nephro-Coleman -) 1 tablet PO DAILY [facility] Pantoprazole Sodium (Protonix -) 20 mg PO DAILY [facility] Ramipril (Altace -) 5 mg PO DAILY [facility] Sevelamer Carbonate (Renvela -) 1,600 mg PO ACBK [facility] Last Admin: 08/14/16 07:29 Dose: 1,600 mg Sitagliptin Phosphate (Januvia -) 25 mg PO DAILY@0700 [facility] Last Admin: 08/14/16 07:30 Dose: 25 mg A/P 81 year old Gentleman with PMhx of ESRD on HD (MWF @ [facility]), Hypertension, CAD s/p CABG, PVD s/p recent toe amputation presents with worsening gangrene of his right foot. #Gangrene/PVD for transmetatarsal amputation as pre Vascular Sx Empiric Abx pain control #ESRD on HD for HD today pt has chronic hypotension, will start Midodrine 10mg before dialysis UF as tolerated with HD D/c Losartan #CHF/CAD continue Coreg hold Losartan because of chronic Low BP Cardiology following #Anemia No acute indication for transfusion BENEDICT with HD Thank you Will follow Zion Le DO
[2016-08-14] MEDS ORDERED: PIPERACILLIN/TAZOB 3.375 GM 50 ML IVPB ONE (13:52)
[2016-08-14] MEDS: CARVEDILOL 6.25 MG TABLET (FP) PO SCH ×3 (14:28→21:33)
[2016-08-14] MEDS: ALBUMIN HUMAN 25% 100 ML VIAL IVPB SCH ×2 (14:33→16:29)
--- NOTE | 2016-08-14 17:55 | PN ---
Progress Note (short form) - Note Progress Note: Afebrile. Exam unchanged. X-ray negative for osteomyelitis. I will schedule for TMA next week. Problem List - Problems (1) Gangrene of foot Code(s): I96 - GANGRENE, NOT ELSEWHERE CLASSIFIED
[2016-08-14] MEDS ORDERED: PT OWN MED DRAWER 7, Y5N ONE (18:10)
[2016-08-14] MEDS: RAMIPRIL 5 MG CAPSULE (FP) PO SCH (18:24)
[2016-08-14] MEDS: CLOPIDOGREL BISULFATE 75 MG TABLET (FP) PO SCH (18:25)
[2016-08-14] MEDS: MAGNESIUM CL 64 MG TABLET.SA PO SCH (18:25)
[2016-08-14] MEDS: PIPERACILLIN/TAZOB 2.25 GM 50 ML IVPB SCH (18:44)
[2016-08-14] MEDS: VITAMIN B COMP W-C 1 EA TABLET PO SCH (18:44)
[2016-08-14] MEDS: PANTOPRAZOLE 20 MG TABLET (FP) PO SCH (18:44)
[2016-08-14] MEDS ORDERED: VANCOMYCIN 1 GRAM (PRE-DOCKED) 250 ML IVPB ONE (21:00)
[2016-08-14] MEDS: ATORVASTATIN CA 20 MG TABLET (FP) PO SCH (21:33)
[2016-08-15] MEDS: ACETAMINOPHEN 325 MG TABLET (FP) PO SCH ×5 (00:50→23:33)
[2016-08-15] MEDS: PIPERACILLIN/TAZOB 2.25 GM 50 ML IVPB SCH ×3 (01:21→17:11)
[2016-08-15] MEDS: INSULIN SLIDING SCALE (NOVOLOG) 1 VIAL SQ SCH ×4 (06:09→22:52)
[2016-08-15] MEDS: SEVELAMER CARBONATE 800 MG TAB (FP) PO SCH (06:47)
[2016-08-15] MEDS: LEVOTHYROXINE NA 25 MCG TABLET (FP) PO SCH (06:47)
[2016-08-15] MEDS: sitaGLIPtin PHOSPHATE 25 MG TABLET (FP) PO SCH (06:47)
[2016-08-15 07:14] LABS: BASOPHIL 1.2 % (0-2.0); MCHC 30.6 g/dl (32.0-35.9); MEAN CELL VOLUME 91.5 fl (80-96); MEAN PLT VOLUME 9.1 fl (7.5-11.1); PLATELET COUNT 156 K/MM3 (134-434); RDW 15.5 % (11.9-15.9); WHITE BLOOD COUNT 7.3 K/mm3 (4.0-10.0)
[2016-08-15 07:36] LABS: CALCIUM 8.2 mg/dL (8.5-10.1); CREATININE 3.4 mg/dL (0.7-1.3)
[2016-08-15 07:37] LABS: CALCIUM 8.2 mg/dL (8.5-10.1); CREATININE 3.4 mg/dL (0.7-1.3); MAGNESIUM 1.7 mg/dL (1.8-2.4); PHOSPHOROUS 2.4 mg/dL (2.5-4.9)
[2016-08-15 07:46] LABS: BILIRUBIN,TOTAL 0.6 mg/dL (0.2-1.0); THYROID STIMULATING HORMONE 11.5 uIU/ml (0.358-3.74); TOT PROT 6.4 g/dl (6.4-8.2)
[2016-08-15] MEDS ORDERED: PT OWN MED DRAWER 7, Y5N ONE (09:30)
[2016-08-15] MEDS: RAMIPRIL 5 MG CAPSULE (FP) PO SCH (09:43)
[2016-08-15] MEDS: CARVEDILOL 6.25 MG TABLET (FP) PO SCH ×2 (09:43→22:45)
[2016-08-15] MEDS: HEPARIN NA (PORCINE) 5,000 UNITS/ML 1ML VIAL SQ SCH ×2 (09:44→22:45)
[2016-08-15] MEDS: PANTOPRAZOLE 20 MG TABLET (FP) PO SCH (09:44)
[2016-08-15] MEDS: VITAMIN B COMP W-C 1 EA TABLET PO SCH (09:44)
[2016-08-15] MEDS: MAGNESIUM CL 64 MG TABLET.SA PO SCH (09:44)
--- NOTE | 2016-08-15 11:14 | PN ---
Progress Note, Physician History of Present Illness: Lethargic No c/o foot pain No fever/ chills - Current Medication List Current Medications: Active Medications Acetaminophen (Tylenol -) 650 mg PO Q6HPO [facility] Last Admin: 08/15/16 06:46 Dose: 650 mg Albuterol Sulfate (Ventolin 0.083% Nebulizer Soln -) 1 amp NEB Q4H PRN PRN Reason: SHORT OF BREATH/WHEEZING Last Admin: 08/14/16 01:22 Dose: 1 amp Atorvastatin Calcium (Lipitor -) 20 mg PO HS [facility] Last Admin: 08/14/16 21:33 Dose: 20 mg Calcium Carbonate (Calcium Carb Oral Suspension -) 500 mg PO DAILY PRN PRN Reason: INDIGESTION Carvedilol (Coreg -) 6.25 mg PO BID [facility] Last Admin: 08/15/16 09:43 Dose: Not Given Clopidogrel Bisulfate (Plavix -) 75 mg PO DAILY [facility] Last Admin: 08/14/16 18:25 Dose: Not Given Diphenhydramine HCl (Benadryl -) 25 mg PO Q6H PRN PRN Reason: pm\ Heparin Sodium (Porcine) (Heparin -) 5,000 unit SQ BID [facility] Last Admin: 08/15/16 09:44 Dose: 5,000 unit Piperacillin Sod/Tazobactam Sod (Zosyn 2.25gm Ivpb (Pre-Docked)) 50 mls @ 100 mls/hr IVPB Q8H-IV [facility] PRN Reason: Protocol Last Admin: 08/15/16 09:45 Dose: 100 mls/hr Insulin Aspart (Novolog Vial Sliding Scale -) 1 vial SQ ACHS [facility] PRN Reason: Protocol Last Admin: 08/15/16 06:09 Dose: Not Given Levothyroxine Sodium (Synthroid -) 25 mcg PO DAILY@0700 [facility] Last Admin: 08/15/16 06:47 Dose: 25 mcg Magnesium Chloride (Slow-Mag -) 64 mg PO DAILY [facility] Last Admin: 08/15/16 09:44 Dose: 64 mg Midodrine (Proamatine -) 10 mg PO MoWeFr@1000 [facility] Last Admin: 08/14/16 13:26 Dose: 10 mg Multivit/Ca Carb/B Cmplx/FA/Prenat (Nephro-Coleman -) 1 tablet PO DAILY [facility] Last Admin: 08/15/16 09:44 Dose: 1 tablet Pantoprazole Sodium (Protonix -) 20 mg PO DAILY [facility] Last Admin: 08/15/16 09:44 Dose: 20 mg Ramipril (Altace -) 5 mg PO DAILY [facility] Last Admin: 08/15/16 09:43 Dose: Not Given Sevelamer Carbonate (Renvela -) 1,600 mg PO ACBK [facility] Last Admin: 08/15/16 06:47 Dose: 1,600 mg Sitagliptin Phosphate (Januvia -) 25 mg PO DAILY@0700 [facility] Last Admin: 08/15/16 06:47 Dose: 25 mg - Objective Vital Signs: Vital Signs Temperature 97.6 F 08/15/16 06:00 Pulse Rate 53 L 08/15/16 06:00 Respiratory Rate 18 08/15/16 06:00 Blood Pressure 102/53 08/15/16 06:00 O2 Sat by Pulse Oximetry (%) 99 08/14/16 20:29 Constitutional: Yes: No Distress Eyes: Yes: Conjunctiva Clear Cardiovascular: Yes: Regular Rate and Rhythm, S1, S2 Gastrointestinal: Yes: Normal Bowel Sounds, Soft. No: Tenderness Extremities: Yes: Other (+ dry gangrene, foot Less erythema, dorsum of foot) Labs: CBC, BMP 08/15/16 06:00 08/15/16 06:00 INR, PTT INR 1.40 (0.82-1.09) H 08/13/16 17:00 Assessment/Plan Gangrene, R foot Possible cellulitis ESRD Continue zosyn/ vancomycin, adjusted for renal failure
--- NOTE | 2016-08-15 11:23 | PN ---
Progress Note, Physician Chief Complaint: HAD D/W VISITORS NO COMPLAINTS AWARE THAT FOR FOOT AMPUTATION - Current Medication List Current Medications: Active Medications Acetaminophen (Tylenol -) 650 mg PO Q6HPO [facility] Last Admin: 08/15/16 06:46 Dose: 650 mg Albuterol Sulfate (Ventolin 0.083% Nebulizer Soln -) 1 amp NEB Q4H PRN PRN Reason: SHORT OF BREATH/WHEEZING Last Admin: 08/14/16 01:22 Dose: 1 amp Atorvastatin Calcium (Lipitor -) 20 mg PO HS [facility] Last Admin: 08/14/16 21:33 Dose: 20 mg Calcium Carbonate (Calcium Carb Oral Suspension -) 500 mg PO DAILY PRN PRN Reason: INDIGESTION Carvedilol (Coreg -) 6.25 mg PO BID [facility] Last Admin: 08/15/16 09:43 Dose: Not Given Clopidogrel Bisulfate (Plavix -) 75 mg PO DAILY [facility] Last Admin: 08/14/16 18:25 Dose: Not Given Diphenhydramine HCl (Benadryl -) 25 mg PO Q6H PRN PRN Reason: pm\ Heparin Sodium (Porcine) (Heparin -) 5,000 unit SQ BID [facility] Last Admin: 08/15/16 09:44 Dose: 5,000 unit Piperacillin Sod/Tazobactam Sod (Zosyn 2.25gm Ivpb (Pre-Docked)) 50 mls @ 100 mls/hr IVPB Q8H-IV [facility] PRN Reason: Protocol Last Admin: 08/15/16 09:45 Dose: 100 mls/hr Vancomycin HCl 1,000 mg/ (Dextrose) 250 mls @ 200 mls/hr IVPB ONCE ONE Stop: 08/15/16 12:28 Insulin Aspart (Novolog Vial Sliding Scale -) 1 vial SQ ACHS [facility] PRN Reason: Protocol Last Admin: 08/15/16 06:09 Dose: Not Given Levothyroxine Sodium (Synthroid -) 25 mcg PO DAILY@0700 [facility] Last Admin: 08/15/16 06:47 Dose: 25 mcg Magnesium Chloride (Slow-Mag -) 64 mg PO DAILY [facility] Last Admin: 08/15/16 09:44 Dose: 64 mg Midodrine (Proamatine -) 10 mg PO MoWeFr@1000 [facility] Last Admin: 08/14/16 13:26 Dose: 10 mg Multivit/Ca Carb/B Cmplx/FA/Prenat (Nephro-Coleman -) 1 tablet PO DAILY [facility] Last Admin: 08/15/16 09:44 Dose: 1 tablet Pantoprazole Sodium (Protonix -) 20 mg PO DAILY [facility] Last Admin: 08/15/16 09:44 Dose: 20 mg Ramipril (Altace -) 5 mg PO DAILY [facility] Last Admin: 08/15/16 09:43 Dose: Not Given Sevelamer Carbonate (Renvela -) 1,600 mg PO ACBK [facility] Last Admin: 08/15/16 06:47 Dose: 1,600 mg Sitagliptin Phosphate (Januvia -) 25 mg PO DAILY@0700 [facility] Last Admin: 08/15/16 06:47 Dose: 25 mg - Objective Vital Signs: Vital Signs Temperature 97.6 F 08/15/16 06:00 Pulse Rate 53 L 08/15/16 06:00 Respiratory Rate 18 08/15/16 06:00 Blood Pressure 102/53 08/15/16 06:00 O2 Sat by Pulse Oximetry (%) 99 08/14/16 20:29 Constitutional: Yes: Calm Cardiovascular: Yes: WNL Respiratory: Yes: WNL Gastrointestinal: Yes: WNL Edema: No Labs: CBC, BMP 08/15/16 06:00 08/15/16 06:00 INR, PTT INR 1.40 (0.82-1.09) H 08/13/16 17:00 Problem List - Problems (1) Anemia Code(s): D64.9 - ANEMIA, UNSPECIFIED Qualifiers: Anemia type: other cause Other causes of anemia: chronic disease, kidney Qualified Code(s): N18.9 - Chronic kidney disease, unspecified; D63.1 - Anemia in chronic kidney disease (2) Coronary artery disease Code(s): I25.10 - ATHSCL HEART DISEASE OF [place] CORONARY ARTERY W/O ANG PCTRS Qualifiers: Coronary Disease-Associated Artery/Lesion type: [place] artery [place] vs. transplanted heart: [place] heart Associated angina: without angina Qualified Code(s): I25.10 - Atherosclerotic heart disease of [place] coronary artery without angina pectoris (3) Diabetes Code(s): E11.9 - TYPE 2 DIABETES MELLITUS WITHOUT COMPLICATIONS Qualifiers: Diabetes mellitus type: type 2 Chronic kidney disease stage: on chronic dialysis (4) Gangrene Code(s): I96 - GANGRENE, NOT ELSEWHERE CLASSIFIED (5) ESRD (end stage renal disease) Code(s): N18.6 - END STAGE RENAL DISEASE Assessment/Plan (1) Gangrene of foot Assessment/Plan: seen by vsculaar needs amputation possible next week hold plavix for a few days cardio clearance iv abx ID eval Code(s): I96 - GANGRENE, NOT ELSEWHERE CLASSIFIED (2) Anemia Assessment/Plan: sec to CKD eufemia follow Code(s): D64.9 - ANEMIA, UNSPECIFIED Qualifiers: Anemia type: other cause Other causes of anemia: chronic disease, kidney Qualified Code(s): N18.9 - Chronic kidney disease, unspecified; D63.1 - Anemia in chronic kidney disease (3) Coronary artery disease Assessment/Plan: on plavix will need to hold for amputation of foot Code(s): I25.10 - ATHSCL HEART DISEASE OF [place] CORONARY ARTERY W/O ANG PCTRS Qualifiers: Coronary Disease-Associated Artery/Lesion type: [place] artery [place] vs. transplanted heart: [place] heart Associated angina: without angina Qualified Code(s): I25.10 - Atherosclerotic heart disease of [place] coronary artery without angina pectoris (4) ESRD (end stage renal disease) Assessment/Plan: HD per renal MWF schedule abnl lytes -> renal on case Code(s): N18.6 - END STAGE RENAL DISEASE (5) Hypothyroidism Assessment/Plan: tsh high synthroid increased Code(s): E03.9 - HYPOTHYROIDISM, UNSPECIFIED Qualifiers: Hypothyroidism type: unspecified Qualified Code(s): E03.9 - Hypothyroidism, unspecified (6) Diabetes Assessment/Plan: gaby murphy will hold sliding scale [id number] lipid panel Code(s): E11.9 - TYPE 2 DIABETES MELLITUS WITHOUT COMPLICATIONS Qualifiers: Diabetes mellitus type: type 2 Chronic kidney disease stage: on chronic dialysis [facility]
[2016-08-15] MEDS ORDERED: MAGNESIUM SULF 50% (8.12 MEQ/2 ML-1 GM VIAL) IVPB ONE (11:30)
[2016-08-15] MEDS ORDERED: VANCOMYCIN 1 GRAM (PRE-DOCKED) 250 ML IVPB ONE (11:30)
[2016-08-15] MEDS ORDERED: INSULIN (NOVOLOG) ASPART 100 UNITS/ML 10ML VIAL ONE ×3 (11:55→12:31)
--- NOTE | 2016-08-15 12:59 | PN ---
Progress Note (short form) - Note Progress Note: Renal Follow up for ESRD on HD Pt seen and examined at the bedside no acute complaints s/p dialysis yesterday with 1.5kg UF no sob or chest pain Vital Signs Temperature 97.6 F 08/15/16 06:00 Pulse Rate 53 L 08/15/16 06:00 Respiratory Rate 18 08/15/16 06:00 Blood Pressure 102/53 08/15/16 06:00 O2 Sat by Pulse Oximetry (%) 99 08/14/16 20:29 Intake & Output 08/12/16 08/13/16 08/14/16 08/15/16 23:59 23:59 23:59 23:59 Intake Total 820 100 Balance 820 100 Weight 151 lb 149 lb 1.6 oz 151 lb 1 oz Gen: NAD, awake and alert CVS: RRR, No M/R Lungs: Dec BS at lung bases Abd: soft NT/ND Ext: Right foot in dressing CBC, BMP 08/15/16 06:00 08/15/16 06:00 Current Medications Acetaminophen (Tylenol -) 650 mg PO Q6HPO [facility] Last Admin: 08/15/16 12:01 Dose: Not Given Albuterol Sulfate (Ventolin 0.083% Nebulizer Soln -) 1 amp NEB Q4H PRN PRN Reason: SHORT OF BREATH/WHEEZING Last Admin: 08/14/16 01:22 Dose: 1 amp Atorvastatin Calcium (Lipitor -) 20 mg PO HS [facility] Last Admin: 08/14/16 21:33 Dose: 20 mg Calcium Carbonate (Calcium Carb Oral Suspension -) 500 mg PO DAILY PRN PRN Reason: INDIGESTION Carvedilol (Coreg -) 6.25 mg PO BID [facility] Last Admin: 08/15/16 09:43 Dose: Not Given Clopidogrel Bisulfate (Plavix -) 75 mg PO DAILY [facility] Last Admin: 08/14/16 18:25 Dose: Not Given Diphenhydramine HCl (Benadryl -) 25 mg PO Q6H PRN PRN Reason: pm\ Heparin Sodium (Porcine) (Heparin -) 5,000 unit SQ BID [facility] Last Admin: 08/15/16 09:44 Dose: 5,000 unit Piperacillin Sod/Tazobactam Sod (Zosyn 2.25gm Ivpb (Pre-Docked)) 50 mls @ 100 mls/hr IVPB Q8H-IV [facility] PRN Reason: Protocol Last Admin: 08/15/16 09:45 Dose: 100 mls/hr Vancomycin HCl (Vancomycin (Pre-Docked)) 250 mls @ 166.667 mls/hr IVPB ONCE ONE Stop: 08/15/16 12:59 Insulin Aspart (Novolog Vial Sliding Scale -) 1 vial SQ ACHS [facility] PRN Reason: Protocol Last Admin: 08/15/16 11:56 Dose: 2 units Levothyroxine Sodium (Synthroid -) 50 mcg PO DAILY@0700 [facility] Magnesium Chloride (Slow-Mag -) 64 mg PO DAILY [facility] Last Admin: 08/15/16 09:44 Dose: 64 mg Midodrine (Proamatine -) 10 mg PO MoWeFr@1000 [facility] Last Admin: 08/14/16 13:26 Dose: 10 mg Multivit/Ca Carb/B Cmplx/FA/Prenat (Nephro-Coleman -) 1 tablet PO DAILY [facility] Last Admin: 08/15/16 09:44 Dose: 1 tablet Pantoprazole Sodium (Protonix -) 20 mg PO DAILY [facility] Last Admin: 08/15/16 09:44 Dose: 20 mg Potassium Phos/Sodium Phos (Phos-Nak Packet -) 1 packet PO TID [facility] Stop: 08/17/16 06:01 Ramipril (Altace -) 5 mg PO DAILY [facility] Last Admin: 08/15/16 09:43 Dose: Not Given Sitagliptin Phosphate (Januvia -) 25 mg PO DAILY@0700 [facility] Last Admin: 08/15/16 06:47 Dose: 25 mg A/P 81 year old Gentleman with PMhx of ESRD on HD (MWF @ [facility]), Hypertension, CAD s/p CABG, PVD s/p recent toe amputation presents with worsening gangrene of his right foot. #Gangrene/PVD for transmetatarsal amputation as pre Vascular Sx Continue Vanco/zosyn as per ID check Vanco levels #ESRD on HD s/p Hd yesterday no acute indication for dialysis today #CHF/CAD continue Coreg hold Losartan because of chronic Low BP Cardiology following #Anemia No acute indication for transfusion BENEDICT with HD Zion Le DO
--- NOTE | 2016-08-15 14:27 | PN ---
Progress Note, Physician Chief Complaint: Events noted Not in distress History of Present Illness: Patient was seen and examined. Awake and alert. Chart was reviewed Denies chest pain, SOB or palpitations - Current Medication List Current Medications: Active Medications Acetaminophen (Tylenol -) 650 mg PO Q6HPO [facility] Last Admin: 08/15/16 12:01 Dose: Not Given Albuterol Sulfate (Ventolin 0.083% Nebulizer Soln -) 1 amp NEB Q4H PRN PRN Reason: SHORT OF BREATH/WHEEZING Last Admin: 08/14/16 01:22 Dose: 1 amp Atorvastatin Calcium (Lipitor -) 20 mg PO HS [facility] Last Admin: 08/14/16 21:33 Dose: 20 mg Calcium Carbonate (Calcium Carb Oral Suspension -) 500 mg PO DAILY PRN PRN Reason: INDIGESTION Carvedilol (Coreg -) 6.25 mg PO BID [facility] Last Admin: 08/15/16 09:43 Dose: Not Given Clopidogrel Bisulfate (Plavix -) 75 mg PO DAILY [facility] Last Admin: 08/14/16 18:25 Dose: Not Given Diphenhydramine HCl (Benadryl -) 25 mg PO Q6H PRN PRN Reason: pm\ Heparin Sodium (Porcine) (Heparin -) 5,000 unit SQ BID [facility] Last Admin: 08/15/16 09:44 Dose: 5,000 unit Piperacillin Sod/Tazobactam Sod (Zosyn 2.25gm Ivpb (Pre-Docked)) 50 mls @ 100 mls/hr IVPB Q8H-IV [facility] PRN Reason: Protocol Last Admin: 08/15/16 09:45 Dose: 100 mls/hr Insulin Aspart (Novolog Vial Sliding Scale -) 1 vial SQ ACHS [facility] PRN Reason: Protocol Last Admin: 08/15/16 11:56 Dose: 2 units Levothyroxine Sodium (Synthroid -) 50 mcg PO DAILY@0700 [facility] Magnesium Chloride (Slow-Mag -) 64 mg PO DAILY [facility] Last Admin: 08/15/16 09:44 Dose: 64 mg Midodrine (Proamatine -) 10 mg PO MoWeFr@1000 [facility] Last Admin: 08/14/16 13:26 Dose: 10 mg Multivit/Ca Carb/B Cmplx/FA/Prenat (Nephro-Coleman -) 1 tablet PO DAILY [facility] Last Admin: 08/15/16 09:44 Dose: 1 tablet Pantoprazole Sodium (Protonix -) 20 mg PO DAILY [facility] Last Admin: 08/15/16 09:44 Dose: 20 mg Potassium Phos/Sodium Phos (Phos-Nak Packet -) 1 packet PO TID [facility] Stop: 08/17/16 06:01 Ramipril (Altace -) 5 mg PO DAILY [facility] Last Admin: 08/15/16 09:43 Dose: Not Given Sitagliptin Phosphate (Januvia -) 25 mg PO DAILY@0700 [facility] Last Admin: 08/15/16 06:47 Dose: 25 mg - Objective Vital Signs: Vital Signs Temperature 97.2 F L 08/15/16 13:38 Pulse Rate 54 L 08/15/16 13:38 Respiratory Rate 20 08/15/16 13:38 Blood Pressure 97/52 08/15/16 13:38 O2 Sat by Pulse Oximetry (%) 99 08/14/16 20:29 Neck: Yes: Supple Cardiovascular: Yes: Regular Rate and Rhythm, S1, S2 Respiratory: Yes: Diminished Gastrointestinal: Yes: Normal Bowel Sounds, Soft. No: Tenderness Extremities: Yes: Amputation Edema: No Additional Findings/Remarks: - Review of Systems Constitutional: denies: Chills, Fever Cardiovascular: denies: Chest Pain, Palpitations, Shortness of Breath Respiratory: denies: Cough, Hemoptysis, Orthopnea, PND, SOB, SOB on Exertion Gastrointestinal: denies: Melena, Nausea. denies: Abdominal Pain, Constipation , Diarrhea, Rectal Bleeding, Vomiting Genitourinary: denies: Dysuria Neurological: denies: Syncope. denies: Dizziness, Headache, Seizure Labs: CBC, BMP 08/15/16 06:00 08/15/16 06:00 INR, PTT INR 1.40 (0.82-1.09) H 08/13/16 17:00 Problem List - Problems (1) Anemia Code(s): D64.9 - ANEMIA, UNSPECIFIED Qualifiers: Anemia type: other cause Other causes of anemia: chronic disease, kidney Qualified Code(s): N18.9 - Chronic kidney disease, unspecified; D63.1 - Anemia in chronic kidney disease (2) Coronary artery disease Code(s): I25.10 - ATHSCL HEART DISEASE OF [place] CORONARY ARTERY W/O ANG PCTRS Qualifiers: Coronary Disease-Associated Artery/Lesion type: [place] artery [place] vs. transplanted heart: [place] heart Associated angina: without angina Qualified Code(s): I25.10 - Atherosclerotic heart disease of [place] coronary artery without angina pectoris (3) Diabetes Code(s): E11.9 - TYPE 2 DIABETES MELLITUS WITHOUT COMPLICATIONS Qualifiers: Diabetes mellitus type: type 2 Chronic kidney disease stage: on chronic dialysis (4) Gangrene of foot Code(s): I96 - GANGRENE, NOT ELSEWHERE CLASSIFIED (5) H/O myocardial infarction, greater than 8 weeks Code(s): I25.2 - OLD MYOCARDIAL INFARCTION (6) Ischemic dilated cardiomyopathy Code(s): I25.5 - ISCHEMIC CARDIOMYOPATHY (7) Pre-operative cardiovascular examination Code(s): Z01.810 - ENCOUNTER FOR PREPROCEDURAL CARDIOVASCULAR EXAMINATION (8) S/P CABG (coronary artery bypass graft) Code(s): Z95.1 - PRESENCE OF AORTOCORONARY BYPASS GRAFT (9) SOB (shortness of breath) Code(s): R06.02 - SHORTNESS OF BREATH (10) Single implantable cardioverter-defibrillator (ICD) in situ Code(s): Z95.810 - PRESENCE OF AUTOMATIC (IMPLANTABLE) CARDIAC DEFIBRILLATOR (11) Amputated toe of right foot Code(s): Z89.421 - ACQUIRED ABSENCE OF OTHER RIGHT TOE(S) (12) CHF (congestive heart failure) Code(s): I50.9 - HEART FAILURE, UNSPECIFIED Qualifiers: Congestive heart failure type: combined Congestive heart failure chronicity: acute on chronic Qualified Code(s): I50.43 - Acute on chronic combined systolic (congestive) and diastolic (congestive) heart failure (13) ESRD (end stage renal disease) Code(s): N18.6 - END STAGE RENAL DISEASE (14) HTN (hypertension) Code(s): I10 - ESSENTIAL (PRIMARY) HYPERTENSION Qualifiers: Hypertension type: essential hypertension Qualified Code(s): I10 - Essential (primary) hypertension (15) Hypercholesterolemia Code(s): E78.0 - PURE HYPERCHOLESTEROLEMIA * DO NOT USE * (16) Peripheral arterial disease Code(s): I73.9 - PERIPHERAL VASCULAR DISEASE, UNSPECIFIED Assessment/Plan 1. Gangrene right foot with underlying PAD s/p infrapoplitial RN QUALITY and right partial 2nd toe amputation 2. CAD, [place], S/P CABG, angina pectoris 3. Ischemic dilated cardiomyopathy S/P ICD ([facility] [facility]), history of failure 4. HTN/HCVD 5. Type 2 DM 6. Hypercholesterolemia 7. ESRD on HD MWF 8. Anemia due to chronic disease 9. Orthostatic near syncope 10. Hypothyroidism PLAN: 1. Empiric antibiotics, f/u C&S, plan for TMA as per vascular surgery. There appears to be no absolute contraindication in proceeding with planned surgery in view of absence of ischemic symptoms, decompensated congestive heart failure or malignant arrhythmias, although with understanding increased risk (but acceptable) based on his co-morbidities. Recommend post op ECG and cardiac enzyme 2. Continue Carvedilol 6.25 mg bid, Lipitor 20 mg qhs and Altace 5 mg qd on non HD days as hemodynamics tolerate 2. Hold Plavix pending right TMA 3. DVT and GI prophylaxis 4. HD with ultrafiltration as per Renal 5. Recent ICD interrogation showed no significant arrhythmias and showed normal device parameters Further plans are to follow Ashvin Rueda MD
[2016-08-15] MEDS: NAPH,MB-DB/K PH,MBDB POWDER PACKET PO SCH ×2 (14:40→22:45)
[2016-08-15] MEDS: ATORVASTATIN CA 20 MG TABLET (FP) PO SCH (22:45)
[2016-08-16] MEDS: PIPERACILLIN/TAZOB 2.25 GM 50 ML IVPB SCH ×3 (01:48→17:15)
[2016-08-16] MEDS: ALBUTEROL SO4 0.083% IH SOL 2.5 MG/3 ML VIAL.NEB. NEB PRN (02:30)
[2016-08-16] MEDS: sitaGLIPtin PHOSPHATE 25 MG TABLET (FP) PO SCH (06:46)
[2016-08-16] MEDS: ACETAMINOPHEN 325 MG TABLET (FP) PO SCH ×4 (06:46→23:23)
[2016-08-16] MEDS: LEVOTHYROXINE NA 50 MCG TABLET (FP) PO SCH (06:46)
[2016-08-16] MEDS: NAPH,MB-DB/K PH,MBDB POWDER PACKET PO SCH ×3 (06:46→22:11)
[2016-08-16] MEDS: INSULIN SLIDING SCALE (NOVOLOG) 1 VIAL SQ SCH ×4 (06:47→22:20)
[2016-08-16 07:22] LABS: BASOPHIL 1.3 % (0-2.0); EOSINOPHIL 12.9 % (0-4.5); MCH 27.9 pg (25.7-33.7); MCHC 30.5 g/dl (32.0-35.9); MEAN CELL VOLUME 91.5 fl (80-96); MEAN PLT VOLUME 8.9 fl (7.5-11.1); NEUTROPHILS 59.7 % (42.8-82.8); PLATELET COUNT 160 K/MM3 (134-434); RDW 15.1 % (11.9-15.9); WHITE BLOOD COUNT 8.5 K/mm3 (4.0-10.0)
[2016-08-16 07:47] LABS: ALBUMIN 2.9 g/dl (3.4-5.0); BILIRUBIN,TOTAL 0.6 mg/dL (0.2-1.0); CREATININE 4.2 mg/dL (0.7-1.3); TOT PROT 6.2 g/dl (6.4-8.2)
--- NOTE | 2016-08-16 10:23 | PN ---
Progress Note, Physician Chief Complaint: NO COMPLAINTS INFORMED ME THAT WILL GET AMPUTATION WEDNESDAY - Current Medication List Current Medications: Active Medications Acetaminophen (Tylenol -) 650 mg PO Q6HPO [facility] Last Admin: 08/16/16 06:46 Dose: 650 mg Albuterol Sulfate (Ventolin 0.083% Nebulizer Soln -) 1 amp NEB Q4H PRN PRN Reason: SHORT OF BREATH/WHEEZING Last Admin: 08/16/16 02:30 Dose: 1 amp Atorvastatin Calcium (Lipitor -) 20 mg PO HS [facility] Last Admin: 08/15/16 22:45 Dose: 20 mg Calcium Carbonate (Calcium Carb Oral Suspension -) 500 mg PO DAILY PRN PRN Reason: INDIGESTION Carvedilol (Coreg -) 6.25 mg PO BID [facility] Last Admin: 08/15/16 22:45 Dose: 6.25 mg Clopidogrel Bisulfate (Plavix -) 75 mg PO DAILY [facility] Last Admin: 08/14/16 18:25 Dose: Not Given Diphenhydramine HCl (Benadryl -) 25 mg PO Q6H PRN PRN Reason: pm\ Heparin Sodium (Porcine) (Heparin -) 5,000 unit SQ BID [facility] Last Admin: 08/15/16 22:45 Dose: 5,000 unit Piperacillin Sod/Tazobactam Sod (Zosyn 2.25gm Ivpb (Pre-Docked)) 50 mls @ 100 mls/hr IVPB Q8H-IV [facility] PRN Reason: Protocol Last Admin: 08/16/16 01:48 Dose: 100 mls/hr Insulin Aspart (Novolog Vial Sliding Scale -) 1 vial SQ ACHS [facility] PRN Reason: Protocol Last Admin: 08/16/16 06:47 Dose: Not Given Levothyroxine Sodium (Synthroid -) 50 mcg PO DAILY@0700 [facility] Last Admin: 08/16/16 06:46 Dose: 50 mcg Magnesium Chloride (Slow-Mag -) 64 mg PO DAILY [facility] Last Admin: 08/15/16 09:44 Dose: 64 mg Midodrine (Proamatine -) 10 mg PO MoWeFr@1000 [facility] Last Admin: 08/14/16 13:26 Dose: 10 mg Multivit/Ca Carb/B Cmplx/FA/Prenat (Nephro-Coleman -) 1 tablet PO DAILY [facility] Last Admin: 08/15/16 09:44 Dose: 1 tablet Pantoprazole Sodium (Protonix -) 20 mg PO DAILY [facility] Last Admin: 08/15/16 09:44 Dose: 20 mg Potassium Phos/Sodium Phos (Phos-Nak Packet -) 1 packet PO TID [facility] Stop: 08/17/16 06:01 Last Admin: 08/16/16 06:46 Dose: 1 packet Ramipril (Altace -) 5 mg PO DAILY [facility] Last Admin: 08/15/16 09:43 Dose: Not Given Sitagliptin Phosphate (Januvia -) 25 mg PO DAILY@0700 [facility] Last Admin: 08/16/16 06:46 Dose: 25 mg - Objective Vital Signs: Vital Signs Temperature 99.0 F 08/16/16 08:59 Pulse Rate 55 L 08/16/16 08:59 Respiratory Rate 20 08/16/16 09:00 Blood Pressure 98/50 08/16/16 08:59 O2 Sat by Pulse Oximetry (%) 96 08/16/16 09:00 Constitutional: Yes: Calm Neck: Yes: WNL Cardiovascular: Yes: WNL Respiratory: Yes: WNL Gastrointestinal: Yes: WNL Edema: No Labs: CBC, BMP 08/16/16 06:00 08/16/16 06:00 INR, PTT INR 1.40 (0.82-1.09) H 08/13/16 17:00 Problem List - Problems (1) Anemia Code(s): D64.9 - ANEMIA, UNSPECIFIED Qualifiers: Anemia type: other cause Other causes of anemia: chronic disease, kidney Qualified Code(s): N18.9 - Chronic kidney disease, unspecified; D63.1 - Anemia in chronic kidney disease (2) Coronary artery disease Code(s): I25.10 - ATHSCL HEART DISEASE OF [place] CORONARY ARTERY W/O ANG PCTRS Qualifiers: Coronary Disease-Associated Artery/Lesion type: [place] artery [place] vs. transplanted heart: [place] heart Associated angina: without angina Qualified Code(s): I25.10 - Atherosclerotic heart disease of [place] coronary artery without angina pectoris (3) Diabetes Code(s): E11.9 - TYPE 2 DIABETES MELLITUS WITHOUT COMPLICATIONS Qualifiers: Diabetes mellitus type: type 2 Chronic kidney disease stage: on chronic dialysis (4) Gangrene Code(s): I96 - GANGRENE, NOT ELSEWHERE CLASSIFIED (5) ESRD (end stage renal disease) Code(s): N18.6 - END STAGE RENAL DISEASE Assessment/Plan (1) Gangrene of foot Assessment/Plan: seen by vsculaar needs amputation possible next week hold plavix for a few days cardio clearance iv abx ID eval Code(s): I96 - GANGRENE, NOT ELSEWHERE CLASSIFIED (2) Anemia Assessment/Plan: sec to CKD eufemia follow Code(s): D64.9 - ANEMIA, UNSPECIFIED Qualifiers: Anemia type: other cause Other causes of anemia: chronic disease, kidney Qualified Code(s): N18.9 - Chronic kidney disease, unspecified; D63.1 - Anemia in chronic kidney disease (3) Coronary artery disease Assessment/Plan: on plavix will need to hold for amputation of foot Code(s): I25.10 - ATHSCL HEART DISEASE OF [place] CORONARY ARTERY W/O ANG PCTRS Qualifiers: Coronary Disease-Associated Artery/Lesion type: [place] artery [place] vs. transplanted heart: [place] heart Associated angina: without angina Qualified Code(s): I25.10 - Atherosclerotic heart disease of [place] coronary artery without angina pectoris (4) ESRD (end stage renal disease) Assessment/Plan: HD per renal MWF schedule abnl lytes -> renal on case Code(s): N18.6 - END STAGE RENAL DISEASE (5) Hypothyroidism Assessment/Plan: tsh high synthroid increased Code(s): E03.9 - HYPOTHYROIDISM, UNSPECIFIED Qualifiers: Hypothyroidism type: unspecified Qualified Code(s): E03.9 - Hypothyroidism, unspecified (6) Diabetes Assessment/Plan: gaby murphy will hold sliding scale hga1c 6 lipid panel Code(s): E11.9 - TYPE 2 DIABETES MELLITUS WITHOUT COMPLICATIONS Qualifiers: Diabetes mellitus type: type 2 Chronic kidney disease stage: on chronic dialysis [employer]
[2016-08-16] MEDS: HEPARIN NA (PORCINE) 5,000 UNITS/ML 1ML VIAL SQ SCH ×2 (10:45→22:11)
[2016-08-16] MEDS ORDERED: PT OWN MED DRAWER 7, Y5N ONE (10:47)
[2016-08-16] MEDS: PANTOPRAZOLE 20 MG TABLET (FP) PO SCH (10:48)
[2016-08-16] MEDS: CARVEDILOL 6.25 MG TABLET (FP) PO SCH ×2 (10:48→22:11)
[2016-08-16] MEDS: VITAMIN B COMP W-C 1 EA TABLET PO SCH (10:48)
[2016-08-16] MEDS: MAGNESIUM CL 64 MG TABLET.SA PO SCH (10:49)
[2016-08-16] MEDS: RAMIPRIL 5 MG CAPSULE (FP) PO SCH ×2 (10:49→10:52)
[2016-08-16] MEDS ORDERED: guaiFENesin/D-M SUGAR-FREE/ACLHOL-FREE 118 ML BOTTLE PO PRN (11:36)
--- NOTE | 2016-08-16 17:14 | PN ---
Progress Note, Physician Chief Complaint: Events noted Not in distress History of Present Illness: Patient was seen and examined. Awake and alert. Chart was reviewed Denies chest pain, SOB or palpitations - Current Medication List Current Medications: Active Medications Acetaminophen (Tylenol -) 650 mg PO Q6HPO [facility] Last Admin: 08/16/16 11:35 Dose: Not Given Albuterol Sulfate (Ventolin 0.083% Nebulizer Soln -) 1 amp NEB Q4H PRN PRN Reason: SHORT OF BREATH/WHEEZING Last Admin: 08/16/16 02:30 Dose: 1 amp Atorvastatin Calcium (Lipitor -) 20 mg PO HS [facility] Last Admin: 08/15/16 22:45 Dose: 20 mg Calcium Carbonate (Calcium Carb Oral Suspension -) 500 mg PO DAILY PRN PRN Reason: INDIGESTION Carvedilol (Coreg -) 6.25 mg PO BID [facility] Last Admin: 08/16/16 10:48 Dose: Not Given Clopidogrel Bisulfate (Plavix -) 75 mg PO DAILY [facility] Last Admin: 08/14/16 18:25 Dose: Not Given Diphenhydramine HCl (Benadryl -) 25 mg PO Q6H PRN PRN Reason: pm\ Guaifenesin (Diabetic Tussin Dm -) 5 ml PO Q6H PRN PRN Reason: COUGH Last Admin: 08/16/16 12:37 Dose: 5 ml Heparin Sodium (Porcine) (Heparin -) 5,000 unit SQ BID [facility] Last Admin: 08/16/16 10:45 Dose: Not Given Piperacillin Sod/Tazobactam Sod (Zosyn 2.25gm Ivpb (Pre-Docked)) 50 mls @ 100 mls/hr IVPB Q8H-IV [facility] PRN Reason: Protocol Last Admin: 08/16/16 11:32 Dose: 100 mls/hr Insulin Aspart (Novolog Vial Sliding Scale -) 1 vial SQ ACHS [facility] PRN Reason: Protocol Last Admin: 08/16/16 11:43 Dose: Not Given Levothyroxine Sodium (Synthroid -) 50 mcg PO DAILY@0700 [facility] Last Admin: 08/16/16 06:46 Dose: 50 mcg Magnesium Chloride (Slow-Mag -) 64 mg PO DAILY [facility] Last Admin: 08/16/16 10:49 Dose: 64 mg Midodrine (Proamatine -) 10 mg PO MoWeFr@1000 [facility] Last Admin: 08/14/16 13:26 Dose: 10 mg Multivit/Ca Carb/B Cmplx/FA/Prenat (Nephro-Coleman -) 1 tablet PO DAILY [facility] Last Admin: 08/16/16 10:48 Dose: 1 tablet Pantoprazole Sodium (Protonix -) 20 mg PO DAILY [facility] Last Admin: 08/16/16 10:48 Dose: 20 mg Potassium Phos/Sodium Phos (Phos-Nak Packet -) 1 packet PO TID [facility] Stop: 08/17/16 06:01 Last Admin: 08/16/16 14:02 Dose: 1 packet Ramipril (Altace -) 5 mg PO DAILY [facility] Last Admin: 08/16/16 10:52 Dose: Not Given Sitagliptin Phosphate (Januvia -) 25 mg PO DAILY@0700 [facility] Last Admin: 08/16/16 06:46 Dose: 25 mg - Objective Vital Signs: Vital Signs Temperature 97.3 F L 08/16/16 17:09 Pulse Rate 56 L 08/16/16 17:09 Respiratory Rate 20 08/16/16 17:09 Blood Pressure 110/74 08/16/16 17:09 O2 Sat by Pulse Oximetry (%) 96 08/16/16 09:00 Neck: Yes: Supple Cardiovascular: Yes: Regular Rate and Rhythm, S1, S2 Respiratory: Yes: Diminished Gastrointestinal: Yes: Normal Bowel Sounds, Soft. No: Tenderness Edema: No Additional Findings/Remarks: - Review of Systems Constitutional: denies: Chills, Fever Cardiovascular: denies: Chest Pain, Palpitations, Shortness of Breath Respiratory: denies: Cough, Hemoptysis, Orthopnea, PND, SOB, SOB on Exertion Gastrointestinal: denies: Melena, Nausea. denies: Abdominal Pain, Constipation , Diarrhea, Rectal Bleeding, Vomiting Genitourinary: denies: Dysuria Neurological: denies: Syncope. denies: Dizziness, Headache, Seizure Labs: CBC, BMP 08/16/16 06:00 08/16/16 06:00 Problem List - Problems (1) Anemia Code(s): D64.9 - ANEMIA, UNSPECIFIED Qualifiers: Anemia type: other cause Other causes of anemia: chronic disease, kidney Qualified Code(s): N18.9 - Chronic kidney disease, unspecified; D63.1 - Anemia in chronic kidney disease (2) Coronary artery disease Code(s): I25.10 - ATHSCL HEART DISEASE OF [place] CORONARY ARTERY W/O ANG PCTRS Qualifiers: Coronary Disease-Associated Artery/Lesion type: [place] artery [place] vs. transplanted heart: [place] heart Associated angina: without angina Qualified Code(s): I25.10 - Atherosclerotic heart disease of [place] coronary artery without angina pectoris (3) Diabetes Code(s): E11.9 - TYPE 2 DIABETES MELLITUS WITHOUT COMPLICATIONS Qualifiers: Diabetes mellitus type: type 2 Chronic kidney disease stage: on chronic dialysis (4) Gangrene of foot Code(s): I96 - G[place]GR[place], NOT ELSEWHERE CLASSIFIED (5) H/O myocardial infarction, greater than 8 weeks Code(s): I25.2 - OLD MYOCARDIAL INFARCTION (6) Ischemic dilated cardiomyopathy Code(s): I25.5 - ISCHEMIC CARDIOMYOPATHY (7) Pre-operative cardiovascular examination Code(s): Z01.810 - ENCOUNTER FOR PREPROCEDURAL CARDIOVASCULAR EXAMINATION (8) S/P CABG (coronary artery bypass graft) Code(s): Z95.1 - PRESENCE OF AORTOCORONARY BYPASS GRAFT (9) SOB (shortness of breath) Code(s): R06.02 - SHORTNESS OF BREATH (10) Single implantable cardioverter-defibrillator (ICD) in situ Code(s): Z95.810 - PRESENCE OF AUTOMATIC (IMPLANTABLE) CARDIAC DEFIBRILLATOR (11) Amputated toe of right foot Code(s): Z89.421 - ACQUIRED ABSENCE OF OTHER RIGHT TOE(S) (12) CHF (congestive heart failure) Code(s): I50.9 - HEART FAILURE, UNSPECIFIED Qualifiers: Congestive heart failure type: combined Congestive heart failure chronicity: acute on chronic Qualified Code(s): I50.43 - Acute on chronic combined systolic (congestive) and diastolic (congestive) heart failure (13) ESRD (end stage renal disease) Code(s): N18.6 - END STAGE RENAL DISEASE (14) HTN (hypertension) Code(s): I10 - ESSENTIAL (PRIMARY) HYPERTENSION Qualifiers: Hypertension type: essential hypertension Qualified Code(s): I10 - Essential (primary) hypertension (15) Hypercholesterolemia Code(s): E78.0 - PURE HYPERCHOLESTEROLEMIA * DO NOT USE * (16) Peripheral arterial disease Code(s): I73.9 - PERIPHERAL VASCULAR DISEASE, UNSPECIFIED Assessment/Plan 1. Gangrene right foot with underlying PAD s/p infrapoplitial [employer] and right partial 2nd toe amputation 2. CAD, [place], S/P CABG, angina pectoris 3. Ischemic dilated cardiomyopathy S/P ICD ([facility] [facility]), history of failure 4. HTN/HCVD 5. Type 2 DM 6. Hypercholesterolemia 7. ESRD on HD MWF 8. Anemia due to chronic disease 9. Orthostatic near syncope 10. Hypothyroidism PLAN: 1. Empiric antibiotics and plan for TMA as per vascular surgery. There appears to be no absolute contraindication in proceeding with planned surgery in view of absence of ischemic symptoms, decompensated congestive heart failure or malignant arrhythmias, although with understanding increased risk (but acceptable) based on his co-morbidities. Recommend post op ECG and cardiac enzyme 2. Continue Carvedilol, Lipitor and Altace on non HD days as hemodynamics tolerate 2. Hold Plavix pending right TMA 3. DVT and GI prophylaxis 4. HD with ultrafiltration as per Renal Further plans are to follow Ashvin Rueda MD
[2016-08-16] MEDS: ATORVASTATIN CA 20 MG TABLET (FP) PO SCH (22:11)
[2016-08-17] MEDS: PIPERACILLIN/TAZOB 2.25 GM 50 ML IVPB SCH ×3 (01:47→17:01)
[2016-08-17] MEDS: NAPH,MB-DB/K PH,MBDB POWDER PACKET PO SCH (06:19)
[2016-08-17] MEDS: LEVOTHYROXINE NA 50 MCG TABLET (FP) PO SCH (06:20)
[2016-08-17] MEDS: sitaGLIPtin PHOSPHATE 25 MG TABLET (FP) PO SCH (06:20)
[2016-08-17] MEDS: ACETAMINOPHEN 325 MG TABLET (FP) PO SCH ×3 (06:20→17:02)
[2016-08-17] MEDS ORDERED: PT OWN MED DRAWER 7, Y5N ONE (06:28)
[2016-08-17] MEDS: INSULIN SLIDING SCALE (NOVOLOG) 1 VIAL SQ SCH ×4 (06:31→21:52)
[2016-08-17] MEDS: MIDODRINE HCL 5 MG TABLET PO SCH ×2 (07:05→11:44)
[2016-08-17] MEDS ORDERED: VANCOMYCIN 1 GRAM (PRE-DOCKED) 250 ML IVPB ONE ×2 (08:00→10:30)
[2016-08-17 08:20] LABS: BASOPHIL 1.2 % (0-2.0); EOSINOPHIL 14.6 % (0-4.5); MCH 28.3 pg (25.7-33.7); MEAN CELL VOLUME 91.1 fl (80-96); MEAN PLT VOLUME 8.9 fl (7.5-11.1); PLATELET COUNT 167 K/MM3 (134-434); RDW 15.4 % (11.9-15.9); WHITE BLOOD COUNT 8.2 K/mm3 (4.0-10.0)
--- NOTE | 2016-08-17 08:33 | PN ---
Progress Note (short form) - Note Progress Note: V SS Exam unchanged Cultures negative. Plavix on hold I will schedule forefoot amputation - probably Wednesday Problem List - Problems (1) Gangrene of foot Code(s): I96 - GANGRENE, NOT ELSEWHERE CLASSIFIED
[2016-08-17 08:36] LABS: ALBUMIN 2.7 g/dl (3.4-5.0); BILIRUBIN,TOTAL 0.6 mg/dL (0.2-1.0); CALCIUM 7.9 mg/dL (8.5-10.1); CREATININE 4.9 mg/dL (0.7-1.3); MAGNESIUM 1.9 mg/dL (1.8-2.4); PHOSPHOROUS 4.3 mg/dL (2.5-4.9)
[2016-08-17] MEDS: RAMIPRIL 5 MG CAPSULE (FP) PO SCH (11:44)
[2016-08-17] MEDS: CARVEDILOL 6.25 MG TABLET (FP) PO SCH ×2 (11:45→21:47)
[2016-08-17] MEDS: VITAMIN B COMP W-C 1 EA TABLET PO SCH (12:09)
[2016-08-17] MEDS: HEPARIN NA (PORCINE) 5,000 UNITS/ML 1ML VIAL SQ SCH ×2 (12:10→21:48)
[2016-08-17] MEDS: PANTOPRAZOLE 20 MG TABLET (FP) PO SCH (12:10)
--- NOTE | 2016-08-17 13:02 | PN ---
Progress Note, Physician Chief Complaint: patient just came back from dialysis plavix on hold for surgery wednesday npo wednesday midnight - Current Medication List Current Medications: Active Medications Acetaminophen (Tylenol -) 650 mg PO Q6HPO [facility] Last Admin: 08/17/16 12:10 Dose: 650 mg Albuterol Sulfate (Ventolin 0.083% Nebulizer Soln -) 1 amp NEB Q4H PRN PRN Reason: SHORT OF BREATH/WHEEZING Last Admin: 08/16/16 02:30 Dose: 1 amp Atorvastatin Calcium (Lipitor -) 20 mg PO HS [facility] Last Admin: 08/16/16 22:11 Dose: 20 mg Calcium Carbonate (Calcium Carb Oral Suspension -) 500 mg PO DAILY PRN PRN Reason: INDIGESTION Carvedilol (Coreg -) 6.25 mg PO BID [facility] Last Admin: 08/17/16 11:45 Dose: Not Given Clopidogrel Bisulfate (Plavix -) 75 mg PO DAILY [facility] Last Admin: 08/14/16 18:25 Dose: Not Given Diphenhydramine HCl (Benadryl -) 25 mg PO Q6H PRN PRN Reason: pm\ Last Admin: 08/16/16 22:11 Dose: 25 mg Guaifenesin (Diabetic Tussin Dm -) 5 ml PO Q6H PRN PRN Reason: COUGH Last Admin: 08/16/16 12:37 Dose: 5 ml Heparin Sodium (Porcine) (Heparin -) 5,000 unit SQ BID [facility] Last Admin: 08/17/16 12:10 Dose: 5,000 unit Piperacillin Sod/Tazobactam Sod (Zosyn 2.25gm Ivpb (Pre-Docked)) 50 mls @ 100 mls/hr IVPB Q8H-IV [facility] PRN Reason: Protocol Last Admin: 08/17/16 12:10 Dose: 100 mls/hr Insulin Aspart (Novolog Vial Sliding Scale -) 1 vial SQ ACHS [facility] PRN Reason: Protocol Last Admin: 08/17/16 12:12 Dose: Not Given Levothyroxine Sodium (Synthroid -) 50 mcg PO DAILY@0700 [facility] Last Admin: 08/17/16 06:20 Dose: 50 mcg Magnesium Chloride (Slow-Mag -) 64 mg PO DAILY [facility] Last Admin: 08/16/16 10:49 Dose: 64 mg Midodrine (Proamatine -) 10 mg PO MoWeFr@1000 [facility] Last Admin: 08/17/16 11:44 Dose: Not Given Multivit/Ca Carb/B Cmplx/FA/Prenat (Nephro-Coleman -) 1 tablet PO DAILY [facility] Last Admin: 08/17/16 12:09 Dose: 1 tablet Pantoprazole Sodium (Protonix -) 20 mg PO DAILY [facility] Last Admin: 08/17/16 12:10 Dose: 20 mg Ramipril (Altace -) 5 mg PO DAILY [facility] Last Admin: 08/17/16 11:44 Dose: Not Given Sitagliptin Phosphate (Januvia -) 25 mg PO DAILY@0700 [facility] Last Admin: 08/17/16 06:20 Dose: 25 mg - Objective Vital Signs: Vital Signs Temperature 97.9 F 08/17/16 11:40 Pulse Rate 57 L 08/17/16 11:40 Respiratory Rate 18 08/17/16 11:40 Blood Pressure 98/41 08/17/16 11:40 O2 Sat by Pulse Oximetry (%) 96 08/16/16 21:00 Constitutional: Yes: Calm Cardiovascular: Yes: Regular Rate and Rhythm, S1, S2 Respiratory: Yes: CTA Bilaterally Gastrointestinal: Yes: Soft Extremities: Yes: Other (black eschar of left foot) Edema: Yes Labs: CBC, BMP 08/17/16 07:36 08/17/16 07:36 INR, PTT INR 1.40 (0.82-1.09) H 08/13/16 17:00 Problem List - Problems (1) Gangrene of foot Assessment/Plan: TMA on wednesday iv abx plavix on hold Code(s): I96 - [place], NOT ELSEWHERE CLASSIFIED (2) Anemia Assessment/Plan: sec to CKD eufemia follow Code(s): D64.9 - ANEMIA, UNSPECIFIED Qualifiers: Anemia type: other cause Other causes of anemia: chronic disease, kidney Qualified Code(s): N18.9 - Chronic kidney disease, unspecified; D63.1 - Anemia in chronic kidney disease (3) Coronary artery disease Assessment/Plan: on plavix will need to hold for amputation of foot cardio on board Code(s): I25.10 - ATHSCL HEART DISEASE OF [place] CORONARY ARTERY W/O ANG PCTRS Qualifiers: Coronary Disease-Associated Artery/Lesion type: [place] artery [place] vs. transplanted heart: [place] heart Associated angina: without angina Qualified Code(s): I25.10 - Atherosclerotic heart disease of [place] coronary artery without angina pectoris (4) ESRD (end stage renal disease) Assessment/Plan: HD per renal MWF schedule Code(s): N18.6 - END STAGE RENAL DISEASE (5) Hypothyroidism Assessment/Plan: tsh elevated synthroid dose adjusted Code(s): E03.9 - HYPOTHYROIDISM, UNSPECIFIED Qualifiers: Hypothyroidism type: unspecified Qualified Code(s): E03.9 - Hypothyroidism, unspecified (6) Diabetes Assessment/Plan: gaby katherine will hold sliding scale hga1c 5.7 lipid panel Code(s): E11.9 - TYPE 2 DIABETES MELLITUS WITHOUT COMPLICATIONS Qualifiers: Diabetes mellitus type: type 2 Chronic kidney disease stage: on chronic dialysis
--- NOTE | 2016-08-17 15:21 | PN ---
Progress Note, Physician Chief Complaint: Events noted Not in distress History of Present Illness: Patient was seen and examined. Awake and alert. Chart was reviewed Denies chest pain, SOB or palpitations Post HD feels weak and slightly hypotensive Discussed with his brother - Current Medication List Current Medications: Active Medications Acetaminophen (Tylenol -) 650 mg PO Q6HPO [facility] Last Admin: 08/17/16 12:10 Dose: 650 mg Albuterol Sulfate (Ventolin 0.083% Nebulizer Soln -) 1 amp NEB Q4H PRN PRN Reason: SHORT OF BREATH/WHEEZING Last Admin: 08/16/16 02:30 Dose: 1 amp Atorvastatin Calcium (Lipitor -) 20 mg PO HS [facility] Last Admin: 08/16/16 22:11 Dose: 20 mg Calcium Carbonate (Calcium Carb Oral Suspension -) 500 mg PO DAILY PRN PRN Reason: INDIGESTION Carvedilol (Coreg -) 6.25 mg PO BID [facility] Last Admin: 08/17/16 11:45 Dose: Not Given Clopidogrel Bisulfate (Plavix -) 75 mg PO DAILY [facility] Last Admin: 08/14/16 18:25 Dose: Not Given Diphenhydramine HCl (Benadryl -) 25 mg PO Q6H PRN PRN Reason: pm\ Last Admin: 08/16/16 22:11 Dose: 25 mg Guaifenesin (Diabetic Tussin Dm -) 5 ml PO Q6H PRN PRN Reason: COUGH Last Admin: 08/16/16 12:37 Dose: 5 ml Heparin Sodium (Porcine) (Heparin -) 5,000 unit SQ BID [facility] Last Admin: 08/17/16 12:10 Dose: 5,000 unit Piperacillin Sod/Tazobactam Sod (Zosyn 2.25gm Ivpb (Pre-Docked)) 50 mls @ 100 mls/hr IVPB Q8H-IV [facility] PRN Reason: Protocol Last Admin: 08/17/16 12:10 Dose: 100 mls/hr Insulin Aspart (Novolog Vial Sliding Scale -) 1 vial SQ ACHS [facility] PRN Reason: Protocol Last Admin: 08/17/16 12:12 Dose: Not Given Levothyroxine Sodium (Synthroid -) 75 mcg PO DAILY@0700 [facility] Magnesium Chloride (Slow-Mag -) 64 mg PO DAILY [facility] Last Admin: 08/16/16 10:49 Dose: 64 mg Midodrine (Proamatine -) 10 mg PO MoWeFr@1000 [facility] Last Admin: 08/17/16 11:44 Dose: Not Given Multivit/Ca Carb/B Cmplx/FA/Prenat (Nephro-Coleman -) 1 tablet PO DAILY [facility] Last Admin: 08/17/16 12:09 Dose: 1 tablet Pantoprazole Sodium (Protonix -) 20 mg PO DAILY [facility] Last Admin: 08/17/16 12:10 Dose: 20 mg Ramipril (Altace -) 5 mg PO DAILY [facility] Last Admin: 08/17/16 11:44 Dose: Not Given - Objective Vital Signs: Vital Signs Temperature 97.4 F L 08/17/16 13:55 Pulse Rate 54 L 08/17/16 13:55 Respiratory Rate 18 08/17/16 13:55 Blood Pressure 101/51 08/17/16 13:55 O2 Sat by Pulse Oximetry (%) 100 08/17/16 11:45 Neck: Yes: Supple Cardiovascular: Yes: Regular Rate and Rhythm, S1, S2 Respiratory: Yes: Diminished Gastrointestinal: Yes: Normal Bowel Sounds, Soft. No: Tenderness Edema: No Wound/Incision: Yes: Dressing Dry and Intact Additional Findings/Remarks: - Review of Systems Constitutional: denies: Chills, Fever Cardiovascular: denies: Chest Pain, Palpitations, Shortness of Breath Respiratory: denies: Cough, Hemoptysis, Orthopnea, PND, SOB, SOB on Exertion Gastrointestinal: denies: Melena, Nausea. denies: Abdominal Pain, Constipation , Diarrhea, Rectal Bleeding, Vomiting Genitourinary: denies: Dysuria Neurological: denies: Syncope. denies: Dizziness, Headache, Seizure Labs: CBC, BMP 08/17/16 07:36 08/17/16 07:36 Problem List - Problems (1) Anemia Code(s): D64.9 - ANEMIA, UNSPECIFIED Qualifiers: Anemia type: other cause Other causes of anemia: chronic disease, kidney Qualified Code(s): N18.9 - Chronic kidney disease, unspecified; D63.1 - Anemia in chronic kidney disease (2) Coronary artery disease Code(s): I25.10 - ATHSCL HEART DISEASE OF [place] CORONARY ARTERY W/O ANG PCTRS Qualifiers: Coronary Disease-Associated Artery/Lesion type: [place] artery [place] vs. transplanted heart: [place] heart Associated angina: without angina Qualified Code(s): I25.10 - Atherosclerotic heart disease of [place] coronary artery without angina pectoris (3) Diabetes Code(s): E11.9 - TYPE 2 DIABETES MELLITUS WITHOUT COMPLICATIONS Qualifiers: Diabetes mellitus type: type 2 Chronic kidney disease stage: on chronic dialysis (4) Gangrene of foot Code(s): I96 - GANGRENE, NOT ELSEWHERE CLASSIFIED (5) H/O myocardial infarction, greater than 8 weeks Code(s): I25.2 - OLD MYOCARDIAL INFARCTION (6) Ischemic dilated cardiomyopathy Code(s): I25.5 - ISCHEMIC CARDIOMYOPATHY (7) Pre-operative cardiovascular examination Code(s): Z01.810 - ENCOUNTER FOR PREPROCEDURAL CARDIOVASCULAR EXAMINATION (8) S/P CABG (coronary artery bypass graft) Code(s): Z95.1 - PRESENCE OF AORTOCORONARY BYPASS GRAFT (9) SOB (shortness of breath) Code(s): R06.02 - SHORTNESS OF BREATH (10) Single implantable cardioverter-defibrillator (ICD) in situ Code(s): Z95.810 - PRESENCE OF AUTOMATIC (IMPLANTABLE) CARDIAC DEFIBRILLATOR (11) Amputated toe of right foot Code(s): Z89.421 - ACQUIRED ABSENCE OF OTHER RIGHT TOE(S) (12) CHF (congestive heart failure) Code(s): I50.9 - HEART FAILURE, UNSPECIFIED Qualifiers: Congestive heart failure type: combined Congestive heart failure chronicity: acute on chronic Qualified Code(s): I50.43 - Acute on chronic combined systolic (congestive) and diastolic (congestive) heart failure (13) ESRD (end stage renal disease) Code(s): N18.6 - END STAGE RENAL DISEASE (14) HTN (hypertension) Code(s): I10 - ESSENTIAL (PRIMARY) HYPERTENSION Qualifiers: Hypertension type: essential hypertension Qualified Code(s): I10 - Essential (primary) hypertension (15) Hypercholesterolemia Code(s): E78.0 - PURE HYPERCHOLESTEROLEMIA * DO NOT USE * (16) Peripheral arterial disease Code(s): I73.9 - PERIPHERAL VASCULAR DISEASE, UNSPECIFIED Assessment/Plan 1. Gangrene right foot with underlying PAD s/p infrapoplitial [employer] and right partial 2nd toe amputation 2. CAD, [place], S/P CABG, angina pectoris 3. Ischemic dilated cardiomyopathy S/P ICD ([place]), history of failure 4. HTN/HCVD 5. Type 2 DM 6. Hypercholesterolemia 7. ESRD on HD MWF 8. Anemia due to chronic disease 9. Orthostatic near syncope 10. Hypothyroidism PLAN: 1. Empiric antibiotics and plan for TMA as per vascular surgery on Wed. There appears to be no absolute contraindication in proceeding with planned surgery in view of absence of ischemic symptoms, decompensated congestive heart failure or malignant arrhythmias, although with understanding increased risk (but acceptable) based on his co-morbidities. Recommend post op ECG and cardiac enzyme 2. Continue Carvedilol, Lipitor and Altace on non HD days as hemodynamics tolerate 2. Hold Plavix pending right TMA - then restart after surgery 3. DVT and GI prophylaxis 4. HD with ultrafiltration as per Renal Further plans are to follow Ashvin Rueda MD
--- NOTE | 2016-08-17 15:32 | PN ---
Progress Note, Physician History of Present Illness: No c/o foot pain No fever/ chills BC (-) WBC WNL - Current Medication List Current Medications: Active Medications Acetaminophen (Tylenol -) 650 mg PO Q6HPO [facility] Last Admin: 08/17/16 12:10 Dose: 650 mg Albuterol Sulfate (Ventolin 0.083% Nebulizer Soln -) 1 amp NEB Q4H PRN PRN Reason: SHORT OF BREATH/WHEEZING Last Admin: 08/16/16 02:30 Dose: 1 amp Atorvastatin Calcium (Lipitor -) 20 mg PO HS [facility] Last Admin: 08/16/16 22:11 Dose: 20 mg Calcium Carbonate (Calcium Carb Oral Suspension -) 500 mg PO DAILY PRN PRN Reason: INDIGESTION Carvedilol (Coreg -) 6.25 mg PO BID [facility] Last Admin: 08/17/16 11:45 Dose: Not Given Clopidogrel Bisulfate (Plavix -) 75 mg PO DAILY [facility] Last Admin: 08/14/16 18:25 Dose: Not Given Diphenhydramine HCl (Benadryl -) 25 mg PO Q6H PRN PRN Reason: pm\ Last Admin: 08/16/16 22:11 Dose: 25 mg Guaifenesin (Diabetic Tussin Dm -) 5 ml PO Q6H PRN PRN Reason: COUGH Last Admin: 08/16/16 12:37 Dose: 5 ml Heparin Sodium (Porcine) (Heparin -) 5,000 unit SQ BID [facility] Last Admin: 08/17/16 12:10 Dose: 5,000 unit Piperacillin Sod/Tazobactam Sod (Zosyn 2.25gm Ivpb (Pre-Docked)) 50 mls @ 100 mls/hr IVPB Q8H-IV [facility] PRN Reason: Protocol Last Admin: 08/17/16 12:10 Dose: 100 mls/hr Insulin Aspart (Novolog Vial Sliding Scale -) 1 vial SQ ACHS [facility] PRN Reason: Protocol Last Admin: 08/17/16 12:12 Dose: Not Given Levothyroxine Sodium (Synthroid -) 75 mcg PO DAILY@0700 [facility] Magnesium Chloride (Slow-Mag -) 64 mg PO DAILY [facility] Last Admin: 08/16/16 10:49 Dose: 64 mg Midodrine (Proamatine -) 10 mg PO MoWeFr@1000 [facility] Last Admin: 08/17/16 11:44 Dose: Not Given Multivit/Ca Carb/B Cmplx/FA/Prenat (Nephro-Coleman -) 1 tablet PO DAILY [facility] Last Admin: 08/17/16 12:09 Dose: 1 tablet Pantoprazole Sodium (Protonix -) 20 mg PO DAILY [facility] Last Admin: 08/17/16 12:10 Dose: 20 mg Ramipril (Altace -) 5 mg PO DAILY [facility] Last Admin: 08/17/16 11:44 Dose: Not Given - Objective Vital Signs: Vital Signs Temperature 97.4 F L 08/17/16 13:55 Pulse Rate 54 L 08/17/16 13:55 Respiratory Rate 18 08/17/16 13:55 Blood Pressure 101/51 08/17/16 13:55 O2 Sat by Pulse Oximetry (%) 100 08/17/16 11:45 Constitutional: Yes: No Distress Eyes: Yes: Conjunctiva Clear Cardiovascular: Yes: Regular Rate and Rhythm, S1, S2 Respiratory: Yes: CTA Bilaterally Gastrointestinal: Yes: Normal Bowel Sounds, Soft. No: Tenderness Extremities: Yes: Other (Dry gangrene, forefoot + slight erythema/ warmth distal LE) Labs: CBC, BMP 08/17/16 07:36 08/17/16 07:36 INR, PTT INR 1.40 (0.82-1.09) H 08/13/16 17:00 Assessment/Plan Gangrene, R foot Possible cellulitis ESRD Continue zosyn/ vancomycin, adjusted for renal failure For TMA
[2016-08-17] MEDS: MAGNESIUM CL 64 MG TABLET.SA PO SCH (17:02)
--- NOTE | 2016-08-17 17:21 | PN ---
Progress Note (short form) - Note Progress Note: Renal Follow up for ESRD on HD Pt seen and examined with dialysis earlier today no acute complaints BP marginal wit HD, UF 1.5L tolerated AVF with good function no fever or chills Vital Signs Temperature 97.4 F L 08/17/16 13:55 Pulse Rate 54 L 08/17/16 13:55 Respiratory Rate 18 08/17/16 13:55 Blood Pressure 101/51 08/17/16 13:55 O2 Sat by Pulse Oximetry (%) 100 08/17/16 11:45 Intake & Output 08/14/16 08/15/16 08/16/16 08/17/16 23:59 23:59 23:59 23:59 Intake Total 820 900 850 50 Balance 820 900 850 50 Weight 149 lb 1.6 oz 151 lb 1 oz 154 lb 8 oz 154 lb 14.4 oz Gen: NAD, awake and alert CVS: RRR, No M/R Lungs: Dec BS at lung bases Abd: soft NT/ND Ext: Right foot in dressing CBC, BMP 08/17/16 07:36 08/17/16 07:36 Current Medications Acetaminophen (Tylenol -) 650 mg PO Q6HPO [facility] Last Admin: 08/17/16 17:02 Dose: 650 mg Albuterol Sulfate (Ventolin 0.083% Nebulizer Soln -) 1 amp NEB Q4H PRN PRN Reason: SHORT OF BREATH/WHEEZING Last Admin: 08/16/16 02:30 Dose: 1 amp Atorvastatin Calcium (Lipitor -) 20 mg PO HS [facility] Last Admin: 08/16/16 22:11 Dose: 20 mg Calcium Carbonate (Calcium Carb Oral Suspension -) 500 mg PO DAILY PRN PRN Reason: INDIGESTION Carvedilol (Coreg -) 6.25 mg PO BID [facility] Last Admin: 08/17/16 11:45 Dose: Not Given Clopidogrel Bisulfate (Plavix -) 75 mg PO DAILY [facility] Last Admin: 08/14/16 18:25 Dose: Not Given Diphenhydramine HCl (Benadryl -) 25 mg PO Q6H PRN PRN Reason: pm\ Last Admin: 08/16/16 22:11 Dose: 25 mg Guaifenesin (Diabetic Tussin Dm -) 5 ml PO Q6H PRN PRN Reason: COUGH Last Admin: 08/16/16 12:37 Dose: 5 ml Heparin Sodium (Porcine) (Heparin -) 5,000 unit SQ BID [facility] Last Admin: 08/17/16 12:10 Dose: 5,000 unit Piperacillin Sod/Tazobactam Sod (Zosyn 2.25gm Ivpb (Pre-Docked)) 50 mls @ 100 mls/hr IVPB Q8H-IV [facility] PRN Reason: Protocol Last Admin: 08/17/16 17:01 Dose: 100 mls/hr Insulin Aspart (Novolog Vial Sliding Scale -) 1 vial SQ ACHS [facility] PRN Reason: Protocol Last Admin: 08/17/16 17:03 Dose: Not Given Levothyroxine Sodium (Synthroid -) 75 mcg PO DAILY@0700 [facility] Magnesium Chloride (Slow-Mag -) 64 mg PO DAILY [facility] Last Admin: 08/17/16 17:02 Dose: 64 mg Midodrine (Proamatine -) 10 mg PO MoWeFr@1000 [facility] Last Admin: 08/17/16 11:44 Dose: Not Given Multivit/Ca Carb/B Cmplx/FA/Prenat (Nephro-Coleman -) 1 tablet PO DAILY [facility] Last Admin: 08/17/16 12:09 Dose: 1 tablet Pantoprazole Sodium (Protonix -) 20 mg PO DAILY [facility] Last Admin: 08/17/16 12:10 Dose: 20 mg Ramipril (Altace -) 5 mg PO DAILY [facility] Last Admin: 08/17/16 11:44 Dose: Not Given A/P 81 year old Gentleman with PMhx of ESRD on HD (MWF @ [facility]), Hypertension, CAD s/p CABG, PVD s/p recent toe amputation presents with worsening gangrene of his right foot. #Gangrene/PVD for TMA on Wednesday ON Vanco and Zosyn #ESRD on HD Tolerated HD well #CHF/CAD continue Coreg UF a tolerated with dialysis #Anemia No acute indication for transfusion BENEDICT with HD Zion Le DO
[2016-08-17] MEDS: ATORVASTATIN CA 20 MG TABLET (FP) PO SCH (21:48)
[2016-08-18] MEDS: ACETAMINOPHEN 325 MG TABLET (FP) PO SCH ×4 (00:10→17:30)
[2016-08-18] MEDS: PIPERACILLIN/TAZOB 2.25 GM 50 ML IVPB SCH ×3 (01:53→17:31)
[2016-08-18] MEDS: LEVOTHYROXINE NA 75 MCG TABLET (FP) PO SCH (06:08)
[2016-08-18] MEDS: INSULIN SLIDING SCALE (NOVOLOG) 1 VIAL SQ SCH ×4 (06:09→21:57)
[2016-08-18] MEDS: PANTOPRAZOLE 20 MG TABLET (FP) PO SCH (09:39)
[2016-08-18] MEDS: CARVEDILOL 6.25 MG TABLET (FP) PO SCH ×2 (09:39→21:04)
[2016-08-18] MEDS: VITAMIN B COMP W-C 1 EA TABLET PO SCH (09:39)
[2016-08-18] MEDS: HEPARIN NA (PORCINE) 5,000 UNITS/ML 1ML VIAL SQ SCH ×2 (09:40→21:05)
[2016-08-18] MEDS: CLOPIDOGREL BISULFATE 75 MG TABLET (FP) PO SCH (09:40)
--- NOTE | 2016-08-18 11:01 | PN ---
Progress Note, Physician Chief Complaint: for surgery wednesday npo wednesday midnight - Current Medication List Current Medications: Active Medications Acetaminophen (Tylenol -) 650 mg PO Q6HPO [facility] Last Admin: 08/18/16 06:08 Dose: 650 mg Albuterol Sulfate (Ventolin 0.083% Nebulizer Soln -) 1 amp NEB Q4H PRN PRN Reason: SHORT OF BREATH/WHEEZING Last Admin: 08/16/16 02:30 Dose: 1 amp Atorvastatin Calcium (Lipitor -) 20 mg PO HS [facility] Last Admin: 08/17/16 21:48 Dose: 20 mg Calcium Carbonate (Calcium Carb Oral Suspension -) 500 mg PO DAILY PRN PRN Reason: INDIGESTION Carvedilol (Coreg -) 6.25 mg PO BID [facility] Last Admin: 08/18/16 09:39 Dose: 6.25 mg Clopidogrel Bisulfate (Plavix -) 75 mg PO DAILY [facility] Last Admin: 08/18/16 09:40 Dose: Not Given Diphenhydramine HCl (Benadryl -) 25 mg PO Q6H PRN PRN Reason: pm\ Last Admin: 08/16/16 22:11 Dose: 25 mg Guaifenesin (Diabetic Tussin Dm -) 5 ml PO Q6H PRN PRN Reason: COUGH Last Admin: 08/16/16 12:37 Dose: 5 ml Heparin Sodium (Porcine) (Heparin -) 5,000 unit SQ BID [facility] Last Admin: 08/18/16 09:40 Dose: 5,000 unit Piperacillin Sod/Tazobactam Sod (Zosyn 2.25gm Ivpb (Pre-Docked)) 50 mls @ 100 mls/hr IVPB Q8H-IV [facility] PRN Reason: Protocol Last Admin: 08/18/16 09:40 Dose: 100 mls/hr Insulin Aspart (Novolog Vial Sliding Scale -) 1 vial SQ ACHS [facility] PRN Reason: Protocol Last Admin: 08/18/16 06:09 Dose: Not Given Levothyroxine Sodium (Synthroid -) 75 mcg PO DAILY@0700 [facility] Last Admin: 08/18/16 06:08 Dose: 75 mcg Magnesium Chloride (Slow-Mag -) 64 mg PO DAILY [facility] Last Admin: 08/17/16 17:02 Dose: 64 mg Midodrine (Proamatine -) 10 mg PO MoWeFr@1000 [facility] Last Admin: 08/17/16 11:44 Dose: Not Given Multivit/Ca Carb/B Cmplx/FA/Prenat (Nephro-Coleman -) 1 tablet PO DAILY [facility] Last Admin: 08/18/16 09:39 Dose: 1 tablet Pantoprazole Sodium (Protonix -) 20 mg PO DAILY [facility] Last Admin: 08/18/16 09:39 Dose: 20 mg - Objective Vital Signs: Vital Signs Temperature 98.0 F 08/18/16 09:00 Pulse Rate 61 08/18/16 09:00 Respiratory Rate 20 08/18/16 09:00 Blood Pressure 103/58 08/18/16 09:00 O2 Sat by Pulse Oximetry (%) 98 08/17/16 21:00 Constitutional: Yes: Calm Cardiovascular: Yes: Regular Rate and Rhythm, S1, S2 Respiratory: Yes: CTA Bilaterally Gastrointestinal: Yes: Normal Bowel Sounds, Soft Edema: No Wound/Incision: Yes: Dressing Dry and Intact (left foot) Labs: CBC, BMP 08/17/16 07:36 08/17/16 07:36 INR, PTT INR 1.40 (0.82-1.09) H 08/13/16 17:00 Problem List - Problems (1) Gangrene of foot Assessment/Plan: TMA on wednesday iv abx zosyn and vanco plavix on hold Code(s): I96 - GANGRENE, NOT ELSEWHERE CLASSIFIED (2) Anemia Assessment/Plan: sec to CKD eufemia follow Code(s): D64.9 - ANEMIA, UNSPECIFIED Qualifiers: Anemia type: other cause Other causes of anemia: chronic disease, kidney Qualified Code(s): N18.9 - Chronic kidney disease, unspecified; D63.1 - Anemia in chronic kidney disease (3) Coronary artery disease Assessment/Plan: on plavix will need to hold for amputation of foot cardio on board Code(s): I25.10 - ATHSCL HEART DISEASE OF [place] CORONARY ARTERY W/O ANG PCTRS Qualifiers: Coronary Disease-Associated Artery/Lesion type: [place] artery [place] vs. transplanted heart: [place] heart Associated angina: without angina Qualified Code(s): I25.10 - Atherosclerotic heart disease of [place] coronary artery without angina pectoris (4) ESRD (end stage renal disease) Assessment/Plan: HD per renal MWF schedule Code(s): N18.6 - END STAGE RENAL DISEASE (5) Hypothyroidism Assessment/Plan: tsh elevated synthroid dose adjusted Code(s): E03.9 - HYPOTHYROIDISM, UNSPECIFIED Qualifiers: Hypothyroidism type: unspecified Qualified Code(s): E03.9 - Hypothyroidism, unspecified (6) Diabetes Assessment/Plan: gaby murphy will hold sliding scale [id number] 5.7 lipid panel Code(s): E11.9 - TYPE 2 DIABETES MELLITUS WITHOUT COMPLICATIONS Qualifiers: Diabetes mellitus type: type 2 Chronic kidney disease stage: on chronic dialysis
[2016-08-18] MEDS ORDERED: EPOETIN ALFA 2,000 UNITS/1 ML VIAL IVPUSH ONE (11:16)
--- NOTE | 2016-08-18 11:16 | PN ---
Progress Note (short form) - Note Progress Note: Renal Follow up for ESRD on HD Pt seen and examined at the bedside no acute complaints no sob or chest pain s/p dialysis yesterday Vital Signs Temperature 98.0 F 08/18/16 09:00 Pulse Rate 61 08/18/16 09:00 Respiratory Rate 20 08/18/16 09:00 Blood Pressure 103/58 08/18/16 09:00 O2 Sat by Pulse Oximetry (%) 100 08/18/16 09:40 Intake & Output 08/15/16 08/16/16 08/17/16 08/18/16 23:59 23:59 23:59 23:59 Intake Total 900 850 350 350 Balance 900 850 350 350 Weight 151 lb 1 oz 154 lb 8 oz 154 lb 14.4 oz 156 lb 2 oz Gen: NAD, awake and alert CVS: RRR, No M/R Lungs: Dec BS at lung bases Abd: soft NT/ND Ext: Right foot in dressing CBC, BMP 08/17/16 07:36 08/17/16 07:36 Laboratory Tests 08/17/16 07:36 Calcium 7.9 L Phosphorus 4.3 D Magnesium 1.9 Albumin 2.7 L no new labs today Current Medications Acetaminophen (Tylenol -) 650 mg PO Q6HPO [facility] Last Admin: 08/18/16 06:08 Dose: 650 mg Albuterol Sulfate (Ventolin 0.083% Nebulizer Soln -) 1 amp NEB Q4H PRN PRN Reason: SHORT OF BREATH/WHEEZING Last Admin: 08/16/16 02:30 Dose: 1 amp Atorvastatin Calcium (Lipitor -) 20 mg PO HS [facility] Last Admin: 08/17/16 21:48 Dose: 20 mg Calcium Carbonate (Calcium Carb Oral Suspension -) 500 mg PO DAILY PRN PRN Reason: INDIGESTION Carvedilol (Coreg -) 6.25 mg PO BID [facility] Last Admin: 08/18/16 09:39 Dose: 6.25 mg Clopidogrel Bisulfate (Plavix -) 75 mg PO DAILY [facility] Last Admin: 08/18/16 09:40 Dose: Not Given Diphenhydramine HCl (Benadryl -) 25 mg PO Q6H PRN PRN Reason: pm\ Last Admin: 08/16/16 22:11 Dose: 25 mg Guaifenesin (Diabetic Tussin Dm -) 5 ml PO Q6H PRN PRN Reason: COUGH Last Admin: 08/16/16 12:37 Dose: 5 ml Heparin Sodium (Porcine) (Heparin -) 5,000 unit SQ BID [facility] Last Admin: 08/18/16 09:40 Dose: 5,000 unit Piperacillin Sod/Tazobactam Sod (Zosyn 2.25gm Ivpb (Pre-Docked)) 50 mls @ 100 mls/hr IVPB Q8H-IV [facility] PRN Reason: Protocol Last Admin: 08/18/16 09:40 Dose: 100 mls/hr Insulin Aspart (Novolog Vial Sliding Scale -) 1 vial SQ ACHS [facility] PRN Reason: Protocol Last Admin: 08/18/16 06:09 Dose: Not Given Levothyroxine Sodium (Synthroid -) 75 mcg PO DAILY@0700 [facility] Last Admin: 08/18/16 06:08 Dose: 75 mcg Magnesium Chloride (Slow-Mag -) 64 mg PO DAILY [facility] Last Admin: 08/17/16 17:02 Dose: 64 mg Midodrine (Proamatine -) 10 mg PO MoWeFr@1000 [facility] Last Admin: 08/17/16 11:44 Dose: Not Given Multivit/Ca Carb/B Cmplx/FA/Prenat (Nephro-Coleman -) 1 tablet PO DAILY [facility] Last Admin: 08/18/16 09:39 Dose: 1 tablet Pantoprazole Sodium (Protonix -) 20 mg PO DAILY [facility] Last Admin: 08/18/16 09:39 Dose: 20 mg A/P 81 year old Gentleman with PMhx of ESRD on HD (MWF @ [facility]), Hypertension, CAD s/p CABG, PVD s/p recent toe amputation presents with worsening gangrene of his right foot. #Gangrene/PVD for TMA on Wednesday ON Vanco and Zosyn Check Vanco level pre-HD #ESRD on HD no acute indication for dialysis today next treatment is planned for tomorrow #CHF/CAD continue Coreg UF a tolerated with dialysis #Anemia No acute indication for transfusion BENEDICT with HD Zion Le DO
[2016-08-18] MEDS ORDERED: VANCOMYCIN 1,000 MG in DEXTROSE 5%-WATER - 250 ML IVPB ONE (11:18)
[2016-08-18] MEDS: MAGNESIUM CL 64 MG TABLET.SA PO SCH (11:23)
--- NOTE | 2016-08-18 11:31 | PN ---
Progress Note, Physician Chief Complaint: Events noted Not in distress History of Present Illness: Patient was seen and examined. Awake and alert. Chart was reviewed Denies chest pain, SOB or palpitations - Current Medication List Current Medications: Active Medications Acetaminophen (Tylenol -) 650 mg PO Q6HPO [facility] Last Admin: 08/18/16 11:23 Dose: 650 mg Albuterol Sulfate (Ventolin 0.083% Nebulizer Soln -) 1 amp NEB Q4H PRN PRN Reason: SHORT OF BREATH/WHEEZING Last Admin: 08/16/16 02:30 Dose: 1 amp Atorvastatin Calcium (Lipitor -) 20 mg PO HS [facility] Last Admin: 08/17/16 21:48 Dose: 20 mg Calcium Carbonate (Calcium Carb Oral Suspension -) 500 mg PO DAILY PRN PRN Reason: INDIGESTION Carvedilol (Coreg -) 6.25 mg PO BID [facility] Last Admin: 08/18/16 09:39 Dose: 6.25 mg Clopidogrel Bisulfate (Plavix -) 75 mg PO DAILY [facility] Last Admin: 08/18/16 09:40 Dose: Not Given Diphenhydramine HCl (Benadryl -) 25 mg PO Q6H PRN PRN Reason: pm\ Last Admin: 08/16/16 22:11 Dose: 25 mg Epoetin Flako (Epogen -) 4,000 units IVPUSH ONCE ONE Stop: 08/18/16 11:17 Guaifenesin (Diabetic Tussin Dm -) 5 ml PO Q6H PRN PRN Reason: COUGH Last Admin: 08/16/16 12:37 Dose: 5 ml Heparin Sodium (Porcine) (Heparin -) 5,000 unit SQ BID [facility] Last Admin: 08/18/16 09:40 Dose: 5,000 unit Piperacillin Sod/Tazobactam Sod (Zosyn 2.25gm Ivpb (Pre-Docked)) 50 mls @ 100 mls/hr IVPB Q8H-IV [facility] PRN Reason: Protocol Last Admin: 08/18/16 09:40 Dose: 100 mls/hr Vancomycin HCl 1,000 mg/ (Dextrose) 250 mls @ 250 mls/hr IVPB ONCE ONE PRN Reason: Protocol Stop: 08/18/16 12:17 Insulin Aspart (Novolog Vial Sliding Scale -) 1 vial SQ ACHS [facility] PRN Reason: Protocol Last Admin: 08/18/16 11:24 Dose: Not Given Levothyroxine Sodium (Synthroid -) 75 mcg PO DAILY@0700 [facility] Last Admin: 08/18/16 06:08 Dose: 75 mcg Magnesium Chloride (Slow-Mag -) 64 mg PO DAILY [facility] Last Admin: 08/18/16 11:23 Dose: 64 mg Midodrine (Proamatine -) 10 mg PO MoWeFr@1000 [facility] Last Admin: 08/17/16 11:44 Dose: Not Given Multivit/Ca Carb/B Cmplx/FA/Prenat (Nephro-Coleman -) 1 tablet PO DAILY [facility] Last Admin: 08/18/16 09:39 Dose: 1 tablet Pantoprazole Sodium (Protonix -) 20 mg PO DAILY [facility] Last Admin: 08/18/16 09:39 Dose: 20 mg - Objective Vital Signs: Vital Signs Temperature 98.0 F 08/18/16 09:00 Pulse Rate 61 08/18/16 09:00 Respiratory Rate 20 08/18/16 09:00 Blood Pressure 103/58 08/18/16 09:00 O2 Sat by Pulse Oximetry (%) 100 08/18/16 09:40 Neck: Yes: Supple Cardiovascular: Yes: Regular Rate and Rhythm, S1, S2 Respiratory: Yes: CTA Bilaterally Gastrointestinal: Yes: Normal Bowel Sounds, Soft. No: Tenderness Edema: No Labs: CBC, BMP 08/17/16 07:36 08/17/16 07:36 Problem List - Problems (1) Anemia Code(s): D64.9 - ANEMIA, UNSPECIFIED Qualifiers: Anemia type: other cause Other causes of anemia: chronic disease, kidney Qualified Code(s): N18.9 - Chronic kidney disease, unspecified; D63.1 - Anemia in chronic kidney disease (2) Coronary artery disease Code(s): I25.10 - ATHSCL HEART DISEASE OF [place] CORONARY ARTERY W/O ANG PCTRS Qualifiers: Coronary Disease-Associated Artery/Lesion type: [place] artery [place] vs. transplanted heart: [place] heart Associated angina: without angina Qualified Code(s): I25.10 - Atherosclerotic heart disease of [place] coronary artery without angina pectoris (3) Diabetes Code(s): E11.9 - TYPE 2 DIABETES MELLITUS WITHOUT COMPLICATIONS Qualifiers: Diabetes mellitus type: type 2 Diabetes mellitus senior living insulin use : without senior living use Chronic kidney disease stage: on chronic dialysis (4) Gangrene of foot Code(s): I96 - GANGRENE, NOT ELSEWHERE CLASSIFIED (5) H/O myocardial infarction, greater than 8 weeks Code(s): I25.2 - OLD MYOCARDIAL INFARCTION (6) Ischemic dilated cardiomyopathy Code(s): I25.5 - ISCHEMIC CARDIOMYOPATHY (7) Pre-operative cardiovascular examination Code(s): Z01.810 - ENCOUNTER FOR PREPROCEDURAL CARDIOVASCULAR EXAMINATION (8) S/P CABG (coronary artery bypass graft) Code(s): Z95.1 - PRESENCE OF AORTOCORONARY BYPASS GRAFT (9) SOB (shortness of breath) Code(s): R06.02 - SHORTNESS OF BREATH (10) Single implantable cardioverter-defibrillator (ICD) in situ Code(s): Z95.810 - PRESENCE OF AUTOMATIC (IMPLANTABLE) CARDIAC DEFIBRILLATOR (11) Amputated toe of right foot Code(s): Z89.421 - ACQUIRED ABSENCE OF OTHER RIGHT TOE(S) (12) CHF (congestive heart failure) Code(s): I50.9 - HEART FAILURE, UNSPECIFIED Qualifiers: Congestive heart failure type: combined Congestive heart failure chronicity: acute on chronic Qualified Code(s): I50.43 - Acute on chronic combined systolic (congestive) and diastolic (congestive) heart failure (13) ESRD (end stage renal disease) Code(s): N18.6 - END STAGE RENAL DISEASE (14) HTN (hypertension) Code(s): I10 - ESSENTIAL (PRIMARY) HYPERTENSION Qualifiers: Hypertension type: essential hypertension Qualified Code(s): I10 - Essential (primary) hypertension (15) Hypercholesterolemia Code(s): E78.0 - PURE HYPERCHOLESTEROLEMIA * DO NOT USE * (16) Peripheral arterial disease Code(s): I73.9 - PERIPHERAL VASCULAR DISEASE, UNSPECIFIED Assessment/Plan 1. Gangrene right foot with underlying PAD s/p infrapoplitial VASCULAR NURSE and right partial 2nd toe amputation 2. CAD, MD, S/P CABG, angina pectoris 3. Ischemic dilated cardiomyopathy S/P ICD ([place]), history of failure 4. HTN/HCVD 5. Type 2 DM 6. Hypercholesterolemia 7. ESRD on HD MWF 8. Anemia due to chronic disease 9. Orthostatic near syncope 10. Hypothyroidism PLAN: 1. Empiric antibiotics and plan for TMA as per vascular surgery on Wed. There appears to be no absolute contraindication in proceeding with planned surgery in view of absence of ischemic symptoms, decompensated congestive heart failure or malignant arrhythmias, although with understanding increased risk (but acceptable) based on his co-morbidities. Recommend post op ECG and cardiac enzyme 2. Continue Carvedilol, Lipitor and Altace on non HD days as hemodynamics tolerate 3. Hold Plavix pending right TMA - then restart after surgery 4. DVT and GI prophylaxis Further plans are to follow Ashvin Rueda MD
[2016-08-18] MEDS: ALBUTEROL SO4 0.083% IH SOL 2.5 MG/3 ML VIAL.NEB. NEB PRN (11:50)
--- NOTE | 2016-08-18 14:51 | SPA.PREOP ---
- PRE-OP NOTE Dx: Right foot gangrene Planned Procedure: Right forefoot amputation Surgeon: Junior Blackmon Consent: To be obtained by surgeon after risks, benefits and alternatives explained to patient. Last Vital Signs Temp Pulse Resp BP Pulse Ox 97.3 F L 54 L 17 103/53 100 08/18/16 14:00 08/18/16 14:00 08/18/16 14:00 08/18/16 10:00 08/18/16 09:40 Lab Results WBC 8.2 K/mm3 (4.0-10.0) 08/17/16 07:36 RBC 3.57 M/mm3 (4.00-5.60) L 08/17/16 07:36 Hgb 10.1 GM/dL (11.7-16.9) L 08/17/16 07:36 Hct 32.5 % (35.4-49) L 08/17/16 07:36 MCV 91.1 fl (80-96) 08/17/16 07:36 MCHC 31.0 g/dl (32.0-35.9) L 08/17/16 07:36 RDW 15.4 % (11.9-15.9) 08/17/16 07:36 Plt Count 167 K/MM3 (134-434) 08/17/16 07:36 Sodium 141 mmol/L (136-145) 08/17/16 07:36 Potassium 4.1 mmol/L (3.5-5.1) 08/17/16 07:36 Chloride 103 mmol/L (98-107) 08/17/16 07:36 Carbon Dioxide 25 mmol/L (21-32) 08/17/16 07:36 Anion Gap 13 (8-16) 08/17/16 07:36 BUN 33 mg/dL (7-18) H D 08/17/16 07:36 Creatinine 4.9 mg/dL (0.7-1.3) H 08/17/16 07:36 Random Glucose 62 mg/dL (74-106) L 08/17/16 07:36 Calcium 7.9 mg/dL (8.5-10.1) L 08/17/16 07:36 INR 1.40 (0.82-1.09) H 08/13/16 17:00 - ASSESSMENT/PLAN Right foot gangrene 1. Make NPO after midnight except po meds 2. GI/DVT PPX 3. Medical optimization / clearance 4. Plavix on hold 5. Type and Screen ordered Visit type - Case Type Case Type: ED Admission
--- NOTE | 2016-08-18 16:25 | PN ---
Progress Note, Physician History of Present Illness: No c/o foot pain No fever/ chills - Current Medication List Current Medications: Active Medications Acetaminophen (Tylenol -) 650 mg PO Q6HPO [facility] Last Admin: 08/18/16 11:23 Dose: 650 mg Albuterol Sulfate (Ventolin 0.083% Nebulizer Soln -) 1 amp NEB Q4H PRN PRN Reason: SHORT OF BREATH/WHEEZING Last Admin: 08/18/16 11:50 Dose: 1 amp Atorvastatin Calcium (Lipitor -) 20 mg PO HS [facility] Last Admin: 08/17/16 21:48 Dose: 20 mg Calcium Carbonate (Calcium Carb Oral Suspension -) 500 mg PO DAILY PRN PRN Reason: INDIGESTION Carvedilol (Coreg -) 6.25 mg PO BID [facility] Last Admin: 08/18/16 09:39 Dose: 6.25 mg Clopidogrel Bisulfate (Plavix -) 75 mg PO DAILY [facility] Last Admin: 08/18/16 09:40 Dose: Not Given Diphenhydramine HCl (Benadryl -) 25 mg PO Q6H PRN PRN Reason: pm\ Last Admin: 08/16/16 22:11 Dose: 25 mg Epoetin Flako (Epogen -) 4,000 units IVPUSH ONCE ONE Stop: 08/18/16 11:17 Guaifenesin (Diabetic Tussin Dm -) 5 ml PO Q6H PRN PRN Reason: COUGH Last Admin: 08/16/16 12:37 Dose: 5 ml Heparin Sodium (Porcine) (Heparin -) 5,000 unit SQ BID [facility] Last Admin: 08/18/16 09:40 Dose: 5,000 unit Piperacillin Sod/Tazobactam Sod (Zosyn 2.25gm Ivpb (Pre-Docked)) 50 mls @ 100 mls/hr IVPB Q8H-IV [facility] PRN Reason: Protocol Last Admin: 08/18/16 09:40 Dose: 100 mls/hr Vancomycin HCl 1,000 mg/ (Dextrose) 250 mls @ 250 mls/hr IVPB ONCE ONE PRN Reason: Protocol Stop: 08/18/16 12:17 Insulin Aspart (Novolog Vial Sliding Scale -) 1 vial SQ ACHS [facility] PRN Reason: Protocol Last Admin: 08/18/16 11:24 Dose: Not Given Levothyroxine Sodium (Synthroid -) 75 mcg PO DAILY@0700 [facility] Last Admin: 08/18/16 06:08 Dose: 75 mcg Magnesium Chloride (Slow-Mag -) 64 mg PO DAILY [facility] Last Admin: 08/18/16 11:23 Dose: 64 mg Midodrine (Proamatine -) 10 mg PO MoWeFr@1000 [facility] Last Admin: 08/17/16 11:44 Dose: Not Given Multivit/Ca Carb/B Cmplx/FA/Prenat (Nephro-Coleman -) 1 tablet PO DAILY [facility] Last Admin: 08/18/16 09:39 Dose: 1 tablet Pantoprazole Sodium (Protonix -) 20 mg PO DAILY [facility] Last Admin: 08/18/16 09:39 Dose: 20 mg - Objective Vital Signs: Vital Signs Temperature 97.3 F L 08/18/16 14:00 Pulse Rate 54 L 08/18/16 14:00 Respiratory Rate 17 08/18/16 14:00 Blood Pressure 103/53 08/18/16 10:00 O2 Sat by Pulse Oximetry (%) 100 08/18/16 09:40 Constitutional: Yes: No Distress Eyes: Yes: Conjunctiva Clear Cardiovascular: Yes: Regular Rate and Rhythm, S1, S2 Respiratory: Yes: CTA Bilaterally Gastrointestinal: Yes: Normal Bowel Sounds, Soft. No: Tenderness Extremities: Yes: Other (+ dry gangrene R forefoot decreased erythema, dorsum of foot/ distal LE) Labs: CBC, BMP 08/17/16 07:36 08/17/16 07:36 INR, PTT INR 1.40 (0.82-1.09) H 08/13/16 17:00 Assessment/Plan Gangrene, R foot Possible cellulitis ESRD Continue zosyn/ vancomycin, adjusted for renal failure For TMA am
[2016-08-18] MEDS: ATORVASTATIN CA 20 MG TABLET (FP) PO SCH (21:05)
[2016-08-19] MEDS: ACETAMINOPHEN 325 MG TABLET (FP) PO SCH ×5 (00:09→23:21)
[2016-08-19] MEDS: PIPERACILLIN/TAZOB 2.25 GM 50 ML IVPB SCH ×4 (01:34→17:48)
[2016-08-19] MEDS: INSULIN SLIDING SCALE (NOVOLOG) 1 VIAL SQ SCH ×4 (06:14→21:59)
[2016-08-19] MEDS: LEVOTHYROXINE NA 75 MCG TABLET (FP) PO SCH (06:15)
[2016-08-19] MEDS ORDERED: PT OWN MED DRAWER 7, Y5N ONE (09:07)
[2016-08-19] MEDS: PANTOPRAZOLE 20 MG TABLET (FP) PO SCH (09:17)
[2016-08-19] MEDS: CARVEDILOL 6.25 MG TABLET (FP) PO SCH ×2 (09:17→21:58)
[2016-08-19] MEDS: CLOPIDOGREL BISULFATE 75 MG TABLET (FP) PO SCH (09:17)
[2016-08-19] MEDS: VITAMIN B COMP W-C 1 EA TABLET PO SCH (09:17)
[2016-08-19] MEDS: MIDODRINE HCL 5 MG TABLET PO SCH (09:26)
[2016-08-19] MEDS: HEPARIN NA (PORCINE) 5,000 UNITS/ML 1ML VIAL SQ SCH ×2 (09:27→21:59)
[2016-08-19] MEDS: MAGNESIUM CL 64 MG TABLET.SA PO SCH (09:27)
--- NOTE | 2016-08-19 12:15 | PN ---
Progress Note, Physician - Current Medication List Current Medications: Active Medications Acetaminophen (Tylenol -) 650 mg PO Q6HPO [facility] Last Admin: 08/19/16 06:14 Dose: Not Given Albuterol Sulfate (Ventolin 0.083% Nebulizer Soln -) 1 amp NEB Q4H PRN PRN Reason: SHORT OF BREATH/WHEEZING Last Admin: 08/18/16 11:50 Dose: 1 amp Atorvastatin Calcium (Lipitor -) 20 mg PO HS [facility] Last Admin: 08/18/16 21:05 Dose: 20 mg Calcium Carbonate (Calcium Carb Oral Suspension -) 500 mg PO DAILY PRN PRN Reason: INDIGESTION Carvedilol (Coreg -) 6.25 mg PO BID [facility] Last Admin: 08/19/16 09:17 Dose: 6.25 mg Clopidogrel Bisulfate (Plavix -) 75 mg PO DAILY [facility] Last Admin: 08/19/16 09:17 Dose: Not Given Diphenhydramine HCl (Benadryl -) 25 mg PO Q6H PRN PRN Reason: pm\ Last Admin: 08/16/16 22:11 Dose: 25 mg Epoetin Flako (Epogen -) 4,000 units IVPUSH ONCE ONE Stop: 08/18/16 11:17 Guaifenesin (Diabetic Tussin Dm -) 5 ml PO Q6H PRN PRN Reason: COUGH Last Admin: 08/16/16 12:37 Dose: 5 ml Heparin Sodium (Porcine) (Heparin -) 5,000 unit SQ BID [facility] Last Admin: 08/19/16 09:27 Dose: Not Given Piperacillin Sod/Tazobactam Sod (Zosyn 2.25gm Ivpb (Pre-Docked)) 50 mls @ 100 mls/hr IVPB Q8H-IV [facility] PRN Reason: Protocol Last Admin: 08/19/16 09:16 Dose: 100 mls/hr Vancomycin HCl 1,000 mg/ (Dextrose) 250 mls @ 250 mls/hr IVPB ONCE ONE PRN Reason: Protocol Stop: 08/18/16 12:17 Insulin Aspart (Novolog Vial Sliding Scale -) 1 vial SQ ACHS [facility] PRN Reason: Protocol Last Admin: 08/19/16 06:14 Dose: Not Given Levothyroxine Sodium (Synthroid -) 75 mcg PO DAILY@0700 [facility] Last Admin: 08/19/16 06:15 Dose: 75 mcg Magnesium Chloride (Slow-Mag -) 64 mg PO DAILY [facility] Last Admin: 08/19/16 09:27 Dose: 64 mg Midodrine (Proamatine -) 10 mg PO MoWeFr@1000 [facility] Last Admin: 08/19/16 09:26 Dose: 10 mg Multivit/Ca Carb/B Cmplx/FA/Prenat (Nephro-Coleman -) 1 tablet PO DAILY [facility] Last Admin: 08/19/16 09:17 Dose: 1 tablet Pantoprazole Sodium (Protonix -) 20 mg PO DAILY [facility] Last Admin: 08/19/16 09:17 Dose: 20 mg - Objective Vital Signs: Vital Signs Temperature 97.0 F L 08/19/16 09:20 Pulse Rate 53 L 08/19/16 09:20 Respiratory Rate 20 08/19/16 09:20 Blood Pressure 110/52 08/19/16 09:20 O2 Sat by Pulse Oximetry (%) 100 08/18/16 20:00 Cardiovascular: Yes: S1, S2 Respiratory: Yes: Regular, CTA Bilaterally Gastrointestinal: Yes: Normal Bowel Sounds, Soft Extremities: Yes: Cold, Other (GANGRENE OF TOES) Edema: No Labs: CBC, BMP 08/17/16 07:36 08/17/16 07:36 INR, PTT INR 1.40 (0.82-1.09) H 08/13/16 17:00 Assessment/Plan - Problems (1) Gangrene of foot Assessment/Plan: FOR TMA iv abx zosyn and vanco plavix on hold Code(s): I96 - GAN[place]ENE, NOT ELSEWHERE CLASSIFIED (2) Anemia Assessment/Plan: sec to CKD eufemia follow Code(s): D64.9 - ANEMIA, UNSPECIFIED Qualifiers: Anemia type: other cause Other causes of anemia: chronic disease, kidney Qualified Code(s): N18.9 - Chronic kidney disease, unspecified; D63.1 - Anemia in chronic kidney disease (3) Coronary artery disease Assessment/Plan: on plavix will need to hold for amputation of foot cardio on board Code(s): I25.10 - ATHSCL HEART DISEASE OF [place] CORONARY ARTERY W/O ANG PCTRS Qualifiers: Coronary Disease-Associated Artery/Lesion type: [place] artery [place] vs. transplanted heart: [place] heart Associated angina: without angina Qualified Code(s): I25.10 - Atherosclerotic heart disease of [place] coronary artery without angina pectoris (4) ESRD (end stage renal disease) Assessment/Plan: HD per renal MWF schedule Code(s): N18.6 - END STAGE RENAL DISEASE (5) Hypothyroidism Assessment/Plan: tsh elevated synthroid dose adjusted Code(s): E03.9 - HYPOTHYROIDISM, UNSPECIFIED Qualifiers: Hypothyroidism type: unspecified Qualified Code(s): E03.9 - Hypothyroidism, unspecified (6) Diabetes Assessment/Plan: gaby murphy will hold sliding scale hga1c 5.7 lipid panel Code(s): E11.9 - TYPE 2 DIABETES MELLITUS WITHOUT COMPLICATIONS Qualifiers: Diabetes mellitus type: type 2 Chronic kidney disease stage: on chronic dialysis
[2016-08-19] MEDS ORDERED: ROPIVACAINE HCL 0.5% 30ML VIAL ONE (13:39)
[2016-08-19] MEDS ORDERED: MIDAZOLAM HCL 2 MG/2 ML SINGLE DOSE VIAL ONE ×2 (13:40)
[2016-08-19] MEDS ORDERED: PROPOFOL 20 ML ONE (14:13)
[2016-08-19 14:17] LABS: C-ANCA <1:20 titer (Neg:<1:20); MYELOPEROXIDASE ANTIBODY <9.0 U/mL (0.0-9.0); P-ANCA <1:20 titer (Neg:<1:20); PROTEINASE-3 ANTIBODY <3.5 U/mL (0.0-3.5)
[2016-08-19] MEDS ORDERED: ePHEDrine SULFATE 50 MG/1 ML AMPULE ONE (14:19)
[2016-08-19] MEDS ORDERED: PIPERACILLIN/TAZOB 2.25 GM/50 ML PRE-DOCKED BAG IVPB ONE (14:20)
--- NOTE | 2016-08-19 15:16 | OP ---
Operative Note - Note: Operative Date: 08/19/16 Pre-Operative Diagnosis: Gangrene right forefoot Operation: Right transmetatarsal amputation Findings: Viable skin and SubQ at amputation site. Surgeon: Junior Blackmon Anesthesiologist/LIBRARY TECHNICAL ASSISTANT: Rajendra Navarro Anesthesia: Fractional (Popliteal block) Estimated Blood Loss (mls): 50 Operative Report Dictated: Yes
[2016-08-19] MEDS ORDERED: HYDROmorphone HCL CARPU-JECT 1 MG/1 ML DISP.SYRIN IVPB PRN (15:17)
[2016-08-19] MEDS ORDERED: oxyCODONE HCL 5 MG TABLET PO PRN (15:17)
[2016-08-19] MEDS ORDERED: CALCIUM CARBONATE SUSPENSION - 500 MG/5 ML ML PO PRN (15:27)
[2016-08-19] MEDS ORDERED: diphenhydrAMINE HCL 25 MG CAPSULE (FP) PO PRN (15:27)
[2016-08-19] MEDS ORDERED: ONDANSETRON 4 MG/2 ML VIAL IVPUSH PRN (15:27)
[2016-08-19] MEDS ORDERED: guaiFENesin/D-M SUGAR-FREE/ACLHOL-FREE 118 ML BOTTLE PO PRN (15:27)
--- NOTE | 2016-08-19 16:27 | PN ---
Progress Note (short form) - Note Progress Note: Renal Follow up for ESRD on HD Pt seen and examined at the bedside prior to Sx no acute complaints no sob or chest pain Vital Signs Temperature 96.0 F L 08/19/16 15:19 Pulse Rate 55 L 08/19/16 16:20 Respiratory Rate 16 08/19/16 16:20 Blood Pressure 99/47 08/19/16 16:20 O2 Sat by Pulse Oximetry (%) 100 08/19/16 16:20 Intake & Output 08/16/16 08/17/16 08/18/16 08/19/16 23:59 23:59 23:59 23:59 Intake Total 850 350 950 550 Balance 850 350 950 550 Weight 154 lb 8 oz 154 lb 14.4 oz 156 lb 2 oz 156 lb 4 oz Gen: NAD, awake and alert CVS: RRR, No M/R Lungs: Dec BS at lung bases Abd: soft NT/ND Ext: Right foot in dressing CBC, BMP 08/17/16 07:36 08/17/16 07:36 Current Medications Acetaminophen (Tylenol -) 650 mg PO Q6HPO [facility] Albuterol Sulfate (Ventolin 0.083% Nebulizer Soln -) 1 amp NEB Q4H PRN PRN Reason: SHORT OF BREATH/WHEEZING Atorvastatin Calcium (Lipitor -) 20 mg PO HS [facility] Calcium Carbonate (Calcium Carb Oral Suspension -) 500 mg PO DAILY PRN PRN Reason: INDIGESTION Carvedilol (Coreg -) 6.25 mg PO BID [facility] Clopidogrel Bisulfate (Plavix -) 75 mg PO DAILY [facility] Diphenhydramine HCl (Benadryl -) 25 mg PO Q6H PRN PRN Reason: pm\ Epoetin Flako (Epogen -) 4,000 units IVPUSH ONCE ONE Stop: 08/19/16 15:28 Fentanyl (Sublimaze Injection -) 25 mcg IVPUSH [id number] PRN PRN Reason: PAIN Stop: 08/22/16 15:28 Guaifenesin (Diabetic Tussin Dm -) 5 ml PO Q6H PRN PRN Reason: COUGH Heparin Sodium (Porcine) (Heparin -) 5,000 unit SQ BID [facility] Hydromorphone HCl (Dilaudid Injection -) 1 mg IVPB Q3H PRN PRN Reason: PAIN LEVEL 1-5 Vancomycin HCl 1,000 mg/ (Dextrose) 250 mls @ 250 mls/hr IVPB ONCE ONE PRN Reason: Protocol Stop: 08/19/16 16:26 Piperacillin Sod/Tazobactam Sod (Zosyn 2.25gm Ivpb (Pre-Docked)) 50 mls @ 100 mls/hr IVPB Q8H-IV [facility] PRN Reason: Protocol Insulin Aspart (Novolog Vial Sliding Scale -) 1 vial SQ ACHS [facility] PRN Reason: Protocol Levothyroxine Sodium (Synthroid -) 75 mcg PO DAILY@0700 [facility] Magnesium Chloride (Slow-Mag -) 64 mg PO DAILY [facility] Midodrine (Proamatine -) 10 mg PO MoWeFr@1000 [facility] Multivit/Ca Carb/B Cmplx/FA/Prenat (Nephro-Coleman -) 1 tablet PO DAILY [facility] Ondansetron HCl (Zofran Injection) 4 mg IVPUSH Q6H PRN PRN Reason: NAUSEA AND/OR VOMITING Stop: 08/19/16 21:28 Oxycodone HCl (Roxicodone -) 5 mg PO Q4H PRN PRN Reason: PAIN LEVEL 1-5 Pantoprazole Sodium (Protonix -) 20 mg PO DAILY [facility] A/P 81 year old Gentleman with PMhx of ESRD on HD (MWF @ [facility]), Hypertension, CAD s/p CABG, PVD s/p recent toe amputation presents with worsening gangrene of his right foot. #Gangrene/PVD TMA today Continue Abx with HD #ESRD on HD for dialysis today s/p OR #CHF/CAD continue Coreg UF a tolerated with dialysis #Anemia No acute indication for transfusion BENEDICT with HD Zion Le DO
[2016-08-19] MEDS ORDERED: EPOETIN ALFA 2,000 UNITS/1 ML VIAL IVPUSH ONE (18:15)
[2016-08-19 18:39] LABS: MCH 28.2 pg (25.7-33.7); MCHC 30.8 g/dl (32.0-35.9); MEAN CELL VOLUME 91.4 fl (80-96); MEAN PLT VOLUME 9.2 fl (7.5-11.1); PLATELET COUNT 150 K/MM3 (134-434); RDW 15.8 % (11.9-15.9); WHITE BLOOD COUNT 9.1 K/mm3 (4.0-10.0)
[2016-08-19 19:36] LABS: CALCIUM 7.5 mg/dL (8.5-10.1); CREATININE 4.5 mg/dL (0.7-1.3); PHOSPHOROUS 4.4 mg/dL (2.5-4.9)
[2016-08-19] MEDS ORDERED: VANCOMYCIN 1 GRAM (PRE-DOCKED) 250 ML IVPB ONE (20:30)
[2016-08-19] MEDS: ATORVASTATIN CA 20 MG TABLET (FP) PO SCH (21:58)
[2016-08-19 22:51] LABS: CREATININE 2.1 mg/dL (0.7-1.3)
[2016-08-20] MEDS: PIPERACILLIN/TAZOB 2.25 GM 50 ML IVPB SCH ×3 (01:17→17:35)
[2016-08-20] MEDS: ALBUTEROL SO4 0.083% IH SOL 2.5 MG/3 ML VIAL.NEB. NEB PRN ×3 (02:36→18:03)
[2016-08-20] MEDS: LEVOTHYROXINE NA 75 MCG TABLET (FP) PO SCH (06:13)
[2016-08-20] MEDS: ACETAMINOPHEN 325 MG TABLET (FP) PO SCH ×3 (06:15→17:35)
[2016-08-20] MEDS: INSULIN SLIDING SCALE (NOVOLOG) 1 VIAL SQ SCH ×5 (06:15→21:49)
--- NOTE | 2016-08-20 08:19 | PN ---
Progress Note, Physician Chief Complaint: S/P transmetatarsal amputation right foot under popliteal nerve block and MAC anesthesia History of Present Illness: post op day one - Current Medication List Current Medications: Active Medications Acetaminophen (Tylenol -) 650 mg PO Q6HPO [facility] Last Admin: 08/20/16 06:15 Dose: Not Given Albuterol Sulfate (Ventolin 0.083% Nebulizer Soln -) 1 amp NEB Q4H PRN PRN Reason: SHORT OF BREATH/WHEEZING Last Admin: 08/20/16 02:36 Dose: 1 amp Atorvastatin Calcium (Lipitor -) 20 mg PO HS [facility] Last Admin: 08/19/16 21:58 Dose: 20 mg Calcium Carbonate (Calcium Carb Oral Suspension -) 500 mg PO DAILY PRN PRN Reason: INDIGESTION Carvedilol (Coreg -) 6.25 mg PO BID [facility] Last Admin: 08/19/16 21:58 Dose: 6.25 mg Clopidogrel Bisulfate (Plavix -) 75 mg PO DAILY [facility] Diphenhydramine HCl (Benadryl -) 25 mg PO Q6H PRN PRN Reason: pm Fentanyl (Sublimaze Injection -) 25 mcg IVPUSH [id number] PRN PRN Reason: PAIN Stop: 08/22/16 15:28 Guaifenesin (Diabetic Tussin Dm -) 5 ml PO Q6H PRN PRN Reason: COUGH Heparin Sodium (Porcine) (Heparin -) 5,000 unit SQ BID [facility] Last Admin: 08/19/16 21:59 Dose: 5,000 unit Hydromorphone HCl (Dilaudid Injection -) 1 mg IVPB Q3H PRN PRN Reason: PAIN LEVEL 1-5 Piperacillin Sod/Tazobactam Sod (Zosyn 2.25gm Ivpb (Pre-Docked)) 50 mls @ 100 mls/hr IVPB Q8H-IV [facility] PRN Reason: Protocol Last Admin: 08/20/16 01:17 Dose: 100 mls/hr Insulin Aspart (Novolog Vial Sliding Scale -) 1 vial SQ ACHS [facility] PRN Reason: Protocol Last Admin: 08/20/16 06:15 Dose: Not Given Levothyroxine Sodium (Synthroid -) 75 mcg PO DAILY@0700 [facility] Last Admin: 08/20/16 06:13 Dose: 75 mcg Magnesium Chloride (Slow-Mag -) 64 mg PO DAILY [facility] Midodrine (Proamatine -) 10 mg PO MoWeFr@1000 [facility] Multivit/Ca Carb/B Cmplx/FA/Prenat (Nephro-Coleman -) 1 tablet PO DAILY [facility] Oxycodone HCl (Roxicodone -) 5 mg PO Q4H PRN PRN Reason: PAIN LEVEL 1-5 Pantoprazole Sodium (Protonix -) 20 mg PO DAILY [facility] - Objective Vital Signs: Vital Signs Temperature 97.1 F L 08/20/16 06:00 Pulse Rate 71 08/20/16 06:00 Respiratory Rate 18 08/20/16 06:00 Blood Pressure 113/58 08/20/16 06:00 O2 Sat by Pulse Oximetry (%) 100 08/19/16 21:00 Constitutional: Yes: Well Nourished, No Distress Cardiovascular: Yes: WNL Respiratory: Yes: WNL Gastrointestinal: Yes: WNL Extremities: Yes: Amputation Neurological: Yes: WNL Labs: CBC, BMP 08/19/16 18:15 08/19/16 21:45 INR, PTT INR 1.40 (0.82-1.09) H 08/13/16 17:00 Assessment/Plan patient reported no pain over night, mental status recovered, normal lower extremity neurologic funtion returned, no residual defect appreciated, no other adverse effect of anesthetic. dept of anesthesia will sign off care at this time
--- NOTE | 2016-08-20 08:40 | PN ---
Progress Note (short form) - Note Progress Note: POD 1 No c/o Dressing dry Non-weight bearing Dressing change 08/22. Problem List - Problems (1) Gangrene of foot Code(s): I96 - GANGRENE, NOT ELSEWHERE CLASSIFIED
--- NOTE | 2016-08-20 09:04 | OP ---
DATE OF OPERATION: 08/19/2016 SURGEON: Junior Mendoza MD PROCEDURE: Right transmetatarsal amputation. PREOPERATIVE DIAGNOSIS: Gangrene of right forefoot. POSTOPERATIVE DIAGNOSIS: Gangrene of right forefoot. ANESTHESIA: Fractional with popliteal block. ANESTHESIOLOGIST: Rajendra Navarro MD OPERATIVE FINDINGS: The skin, subcutaneous tissues were viable at the site of amputation in the mid right foot. There was pulsatile bleeding from arteries. OPERATIVE PROCEDURE: Following routine patient identification and establishment of a popliteal block, patient was brought to the operating room. The right ankle and foot were prepped with Betadine solution. Timeout was performed. A fishmouth incision was made at the level of the mid metatarsals proximal to the area of gangrene on the distal foot. Subcutaneous tissues, muscles, and tendons were divided with cautery. The periosteum of the metatarsals was elevated back approximately 1 to 2 cm and the bones transected with a bone cutter. The specimen was removed. The bones were further debrided back with bone cutter and rongeur and smoothed with a rasp. The wound was irrigated with saline. Hemostasis was checked and additional cautery applied where needed. Ends of tendons were removed. The skin flaps were then closed with interrupted mattress and plain sutures of 3-0 nylon. A dressing consisting of Xeroform gauze, gauze fluffs, combined Kerlix and Coban was applied and the patient was taken to the recovery room in stable condition. JUNIOR MENDOZA M.D. [id number]
[2016-08-20] MEDS ORDERED: PT OWN MED DRAWER 7, Y5N ONE (09:22)
[2016-08-20] MEDS: HEPARIN NA (PORCINE) 5,000 UNITS/ML 1ML VIAL SQ SCH ×2 (10:12→21:41)
[2016-08-20] MEDS: VITAMIN B COMP W-C 1 EA TABLET PO SCH (10:13)
[2016-08-20] MEDS: MAGNESIUM CL 64 MG TABLET.SA PO SCH (10:13)
[2016-08-20] MEDS: CARVEDILOL 6.25 MG TABLET (FP) PO SCH ×2 (10:13→21:42)
[2016-08-20] MEDS: PANTOPRAZOLE 20 MG TABLET (FP) PO SCH (10:13)
[2016-08-20] MEDS: CLOPIDOGREL BISULFATE 75 MG TABLET (FP) PO SCH (10:13)
--- NOTE | 2016-08-20 10:13 | PN ---
Progress Note, Physician Chief Complaint: patient seen and examined no complaints POD 2 - Current Medication List Current Medications: Active Medications Acetaminophen (Tylenol -) 650 mg PO Q6HPO [facility] Last Admin: 08/20/16 06:15 Dose: Not Given Albuterol Sulfate (Ventolin 0.083% Nebulizer Soln -) 1 amp NEB Q4H PRN PRN Reason: SHORT OF BREATH/WHEEZING Last Admin: 08/20/16 02:36 Dose: 1 amp Atorvastatin Calcium (Lipitor -) 20 mg PO HS [facility] Last Admin: 08/19/16 21:58 Dose: 20 mg Calcium Carbonate (Calcium Carb Oral Suspension -) 500 mg PO DAILY PRN PRN Reason: INDIGESTION Carvedilol (Coreg -) 6.25 mg PO BID [facility] Last Admin: 08/19/16 21:58 Dose: 6.25 mg Clopidogrel Bisulfate (Plavix -) 75 mg PO DAILY [facility] Diphenhydramine HCl (Benadryl -) 25 mg PO Q6H PRN PRN Reason: pm Fentanyl (Sublimaze Injection -) 25 mcg IVPUSH [id number] PRN PRN Reason: PAIN Stop: 08/22/16 15:28 Guaifenesin (Diabetic Tussin Dm -) 5 ml PO Q6H PRN PRN Reason: COUGH Heparin Sodium (Porcine) (Heparin -) 5,000 unit SQ BID [facility] Last Admin: 08/19/16 21:59 Dose: 5,000 unit Hydromorphone HCl (Dilaudid Injection -) 1 mg IVPB Q3H PRN PRN Reason: PAIN LEVEL 1-5 Piperacillin Sod/Tazobactam Sod (Zosyn 2.25gm Ivpb (Pre-Docked)) 50 mls @ 100 mls/hr IVPB Q8H-IV [facility] PRN Reason: Protocol Last Admin: 08/20/16 01:17 Dose: 100 mls/hr Insulin Aspart (Novolog Vial Sliding Scale -) 1 vial SQ ACHS [facility] PRN Reason: Protocol Last Admin: 08/20/16 06:15 Dose: Not Given Levothyroxine Sodium (Synthroid -) 75 mcg PO DAILY@0700 [facility] Last Admin: 08/20/16 06:13 Dose: 75 mcg Magnesium Chloride (Slow-Mag -) 64 mg PO DAILY [facility] Midodrine (Proamatine -) 10 mg PO MoWeFr@1000 [facility] Multivit/Ca Carb/B Cmplx/FA/Prenat (Nephro-Coleman -) 1 tablet PO DAILY [facility] Oxycodone HCl (Roxicodone -) 5 mg PO Q4H PRN PRN Reason: PAIN LEVEL 1-5 Pantoprazole Sodium (Protonix -) 20 mg PO DAILY [facility] - Objective Vital Signs: Vital Signs Temperature 97.1 F L 08/20/16 06:00 Pulse Rate 71 08/20/16 06:00 Respiratory Rate 18 08/20/16 06:00 Blood Pressure 113/58 08/20/16 06:00 O2 Sat by Pulse Oximetry (%) 100 08/19/16 21:00 Constitutional: Yes: Calm Cardiovascular: Yes: Regular Rate and Rhythm, S1, S2 Respiratory: Yes: CTA Bilaterally Gastrointestinal: Yes: Normal Bowel Sounds, Soft Edema: No Wound/Incision: Yes: Dressing Dry and Intact (left foot) Labs: CBC, BMP 08/19/16 18:15 08/19/16 21:45 INR, PTT INR 1.40 (0.82-1.09) H 08/13/16 17:00 Problem List - Problems (1) Gangrene of foot Assessment/Plan: s/p TMA POD 2 on zosyn dressing change tmw per surgery Code(s): I96 - GANGRENE, NOT ELSEWHERE CLASSIFIED (2) Anemia Assessment/Plan: sec to CKD epogen during HD Code(s): D64.9 - ANEMIA, UNSPECIFIED Qualifiers: Anemia type: other cause Other causes of anemia: chronic disease, kidney Qualified Code(s): N18.9 - Chronic kidney disease, unspecified; D63.1 - Anemia in chronic kidney disease (3) Coronary artery disease Assessment/Plan: plavix restarted Code(s): I25.10 - ATHSCL HEART DISEASE OF [place] CORONARY ARTERY W/O ANG PCTRS Qualifiers: Coronary Disease-Associated Artery/Lesion type: [place] artery [place] vs. transplanted heart: [place] heart Associated angina: without angina Qualified Code(s): I25.10 - Atherosclerotic heart disease of [place] coronary artery without angina pectoris (4) ESRD (end stage renal disease) Assessment/Plan: HD per renal MWF schedule midodrine as well Code(s): N18.6 - END STAGE RENAL DISEASE (5) Hypothyroidism Assessment/Plan: tsh elevated synthroid dose adjusted Code(s): E03.9 - HYPOTHYROIDISM, UNSPECIFIED Qualifiers: Hypothyroidism type: unspecified Qualified Code(s): E03.9 - Hypothyroidism, unspecified (6) Diabetes Assessment/Plan: sandra murphy will hold sliding scale hga1c 5.7 lipid panel Code(s): E11.9 - TYPE 2 DIABETES MELLITUS WITHOUT COMPLICATIONS Qualifiers: Diabetes mellitus type: type 2 Diabetes mellitus fpc insulin use : without dedicated intermodal truck driver use Chronic kidney disease stage: on chronic dialysis
--- NOTE | 2016-08-20 11:33 | PN ---
Progress Note (short form) - Note Progress Note: Renal Follow up for ESRD on HD Pt seen and examined at the bedside s/p TMA yesterday s/p dialysis yesterday no acute complaints today denies any pain in the foot Vital Signs Temperature 97.1 F L 08/20/16 06:00 Pulse Rate 71 08/20/16 06:00 Respiratory Rate 18 08/20/16 06:00 Blood Pressure 113/58 08/20/16 06:00 O2 Sat by Pulse Oximetry (%) 100 08/19/16 21:00 Intake & Output 08/17/16 08/18/16 08/19/16 08/20/16 23:59 23:59 23:59 23:59 Intake Total 350 950 800 50 Output Total 0 Balance 350 950 800 50 Weight 154 lb 14.4 oz 156 lb 2 oz 156 lb 4 oz 161 lb 7 oz Gen: NAD, awake and alert CVS: RRR, No M/R Lungs: Dec BS at lung bases Abd: soft NT/ND Ext: Right foot in dressing. no edema CBC, BMP 08/19/16 18:15 08/19/16 21:45 Current Medications Acetaminophen (Tylenol -) 650 mg PO Q6HPO [facility] Last Admin: 08/20/16 06:15 Dose: Not Given Albuterol Sulfate (Ventolin 0.083% Nebulizer Soln -) 1 amp NEB Q4H PRN PRN Reason: SHORT OF BREATH/WHEEZING Last Admin: 08/20/16 11:12 Dose: 1 amp Atorvastatin Calcium (Lipitor -) 20 mg PO HS [facility] Last Admin: 08/19/16 21:58 Dose: 20 mg Calcium Carbonate (Calcium Carb Oral Suspension -) 500 mg PO DAILY PRN PRN Reason: INDIGESTION Carvedilol (Coreg -) 6.25 mg PO BID [facility] Last Admin: 08/20/16 10:13 Dose: 6.25 mg Clopidogrel Bisulfate (Plavix -) 75 mg PO DAILY [facility] Last Admin: 08/20/16 10:13 Dose: 75 mg Diphenhydramine HCl (Benadryl -) 25 mg PO Q6H PRN PRN Reason: pm Fentanyl (Sublimaze Injection -) 25 mcg IVPUSH [id number] PRN PRN Reason: PAIN Stop: 08/22/16 15:28 Guaifenesin (Diabetic Tussin Dm -) 5 ml PO Q6H PRN PRN Reason: COUGH Heparin Sodium (Porcine) (Heparin -) 5,000 unit SQ BID [facility] Last Admin: 08/20/16 10:12 Dose: 5,000 unit Hydromorphone HCl (Dilaudid Injection -) 1 mg IVPB Q3H PRN PRN Reason: PAIN LEVEL 1-5 Piperacillin Sod/Tazobactam Sod (Zosyn 2.25gm Ivpb (Pre-Docked)) 50 mls @ 100 mls/hr IVPB Q8H-IV [place] PRN Reason: Protocol Last Admin: 08/20/16 10:12 Dose: 100 mls/hr Insulin Aspart (Novolog Vial Sliding Scale -) 1 vial SQ ACHS [facility] PRN Reason: Protocol Last Admin: 08/20/16 06:15 Dose: Not Given Levothyroxine Sodium (Synthroid -) 75 mcg PO DAILY@0700 [facility] Last Admin: 08/20/16 06:13 Dose: 75 mcg Magnesium Chloride (Slow-Mag -) 64 mg PO DAILY [facility] Last Admin: 08/20/16 10:13 Dose: 64 mg Midodrine (Proamatine -) 10 mg PO MoWeFr@1000 [facility] Multivit/Ca Carb/B Cmplx/FA/Prenat (Nephro-Coleman -) 1 tablet PO DAILY [facility] Last Admin: 08/20/16 10:13 Dose: 1 tablet Oxycodone HCl (Roxicodone -) 5 mg PO Q4H PRN PRN Reason: PAIN LEVEL 1-5 Pantoprazole Sodium (Protonix -) 20 mg PO DAILY [facility] Last Admin: 08/20/16 10:13 Dose: 20 mg A/P 81 year old Gentleman with PMhx of ESRD on HD (MWF @ [facility]), Hypertension, CAD s/p CABG, PVD s/p recent toe amputation presents with worsening gangrene of his right foot. #Gangrene/PVD s/p TMA continue Abx Vanco dosed by levels following dialysis #ESRD on HD s/p Hd yesterday with 1.3L UF next HD planned for tomorrow #CHF/CAD continue Coreg UF a tolerated with dialysis #Anemia No acute indication for transfusion BENEDICT with HD Zion Le DO
--- NOTE | 2016-08-20 13:15 | PN ---
Progress Note, Physician Chief Complaint: Events noted Not in distress POD#1 right TMA History of Present Illness: Patient was seen and examined. Awake and alert. Chart was reviewed Denies chest pain, SOB or palpitations - Current Medication List Current Medications: Active Medications Acetaminophen (Tylenol -) 650 mg PO Q6HPO [facility] Last Admin: 08/20/16 06:15 Dose: Not Given Albuterol Sulfate (Ventolin 0.083% Nebulizer Soln -) 1 amp NEB Q4H PRN PRN Reason: SHORT OF BREATH/WHEEZING Last Admin: 08/20/16 11:12 Dose: 1 amp Atorvastatin Calcium (Lipitor -) 20 mg PO HS [facility] Last Admin: 08/19/16 21:58 Dose: 20 mg Calcium Carbonate (Calcium Carb Oral Suspension -) 500 mg PO DAILY PRN PRN Reason: INDIGESTION Carvedilol (Coreg -) 6.25 mg PO BID [facility] Last Admin: 08/20/16 10:13 Dose: 6.25 mg Clopidogrel Bisulfate (Plavix -) 75 mg PO DAILY [facility] Last Admin: 08/20/16 10:13 Dose: 75 mg Diphenhydramine HCl (Benadryl -) 25 mg PO Q6H PRN PRN Reason: pm Epoetin Flako (Epogen -) 4,000 units IVPUSH ONCE ONE Stop: 08/21/16 08:01 Fentanyl (Sublimaze Injection -) 25 mcg IVPUSH [id number] PRN PRN Reason: PAIN Stop: 08/22/16 15:28 Guaifenesin (Diabetic Tussin Dm -) 5 ml PO Q6H PRN PRN Reason: COUGH Heparin Sodium (Porcine) (Heparin -) 5,000 unit SQ BID [facility] Last Admin: 08/20/16 10:12 Dose: 5,000 unit Hydromorphone HCl (Dilaudid Injection -) 1 mg IVPB Q3H PRN PRN Reason: PAIN LEVEL 1-5 Piperacillin Sod/Tazobactam Sod (Zosyn 2.25gm Ivpb (Pre-Docked)) 50 mls @ 100 mls/hr IVPB Q8H-IV [facility] PRN Reason: Protocol Last Admin: 08/20/16 10:12 Dose: 100 mls/hr Vancomycin HCl 1,000 mg/ (Dextrose) 250 mls @ 250 mls/hr IVPB ONCE ONE PRN Reason: Protocol Stop: 08/21/16 08:59 Insulin Aspart (Novolog Vial Sliding Scale -) 1 vial SQ ACHS [facility] PRN Reason: Protocol Last Admin: 08/20/16 11:57 Dose: Not Given Levothyroxine Sodium (Synthroid -) 75 mcg PO DAILY@0700 [facility] Last Admin: 08/20/16 06:13 Dose: 75 mcg Magnesium Chloride (Slow-Mag -) 64 mg PO DAILY [facility] Last Admin: 08/20/16 10:13 Dose: 64 mg Midodrine (Proamatine -) 10 mg PO MoWeFr@1000 [facility] Multivit/Ca Carb/B Cmplx/FA/Prenat (Nephro-Coleman -) 1 tablet PO DAILY [facility] Last Admin: 08/20/16 10:13 Dose: 1 tablet Oxycodone HCl (Roxicodone -) 5 mg PO Q4H PRN PRN Reason: PAIN LEVEL 1-5 Pantoprazole Sodium (Protonix -) 20 mg PO DAILY [facility] Last Admin: 08/20/16 10:13 Dose: 20 mg - Objective Vital Signs: Vital Signs Temperature 97.1 F L 08/20/16 06:00 Pulse Rate 60 08/20/16 10:00 Respiratory Rate 18 08/20/16 10:00 Blood Pressure 90/60 08/20/16 10:00 O2 Sat by Pulse Oximetry (%) 96 08/20/16 09:00 Neck: Yes: Supple Cardiovascular: Yes: Regular Rate and Rhythm, S1, S2 Respiratory: Yes: Diminished Gastrointestinal: Yes: Normal Bowel Sounds, Soft. No: Tenderness Extremities: Yes: Amputation (right TMA) Edema: No Additional Findings/Remarks: - Review of Systems Cardiovascular: denies: Chest Pain, Palpitations, Shortness of Breath Respiratory: denies: Cough, Hemoptysis, Orthopnea, PND, SOB, SOB on Exertion Gastrointestinal: denies: Abdominal Pain, Constipation, Diarrhea, Melena, Nausea , Rectal Bleeding, Vomiting Genitourinary: denies: Dysuria Neurological: denies: Dizziness, Headache, Seizure, Syncope Labs: CBC, BMP 08/19/16 18:15 08/19/16 21:45 Problem List - Problems (1) Anemia Code(s): D64.9 - ANEMIA, UNSPECIFIED Qualifiers: Anemia type: other cause Other causes of anemia: chronic disease, kidney Qualified Code(s): N18.9 - Chronic kidney disease, unspecified; D63.1 - Anemia in chronic kidney disease (2) Coronary artery disease Code(s): I25.10 - ATHSCL HEART DISEASE OF [place] CORONARY ARTERY W/O ANG PCTRS Qualifiers: Coronary Disease-Associated Artery/Lesion type: [place] artery [place] vs. 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 : without residential use Chronic kidney disease stage: on chronic dialysis (4) Gangrene of foot Code(s): I96 - GANGRENE, NOT ELSEWHERE CLASSIFIED (5) H/O myocardial infarction, greater than 8 weeks Code(s): I25.2 - OLD MYOCARDIAL INFARCTION (6) Ischemic dilated cardiomyopathy Code(s): I25.5 - ISCHEMIC CARDIOMYOPATHY (7) Pre-operative cardiovascular examination Code(s): Z01.810 - ENCOUNTER FOR PREPROCEDURAL CARDIOVASCULAR EXAMINATION (8) S/P CABG (coronary artery bypass graft) Code(s): Z95.1 - PRESENCE OF AORTOCORONARY BYPASS GRAFT (9) SOB (shortness of breath) Code(s): R06.02 - SHORTNESS OF BREATH (10) Single implantable cardioverter-defibrillator (ICD) in situ Code(s): Z95.810 - PRESENCE OF AUTOMATIC (IMPLANTABLE) CARDIAC DEFIBRILLATOR (11) Amputated toe of right foot Code(s): Z89.421 - ACQUIRED ABSENCE OF OTHER RIGHT TOE(S) (12) CHF (congestive heart failure) Code(s): I50.9 - HEART FAILURE, UNSPECIFIED Qualifiers: Congestive heart failure type: combined Congestive heart failure chronicity: acute on chronic Qualified Code(s): I50.43 - Acute on chronic combined systolic (congestive) and diastolic (congestive) heart failure (13) ESRD (end stage renal disease) Code(s): N18.6 - END STAGE RENAL DISEASE (14) HTN (hypertension) Code(s): I10 - ESSENTIAL (PRIMARY) HYPERTENSION Qualifiers: Hypertension type: essential hypertension Qualified Code(s): I10 - Essential (primary) hypertension (15) Hypercholesterolemia Code(s): E78.0 - PURE HYPERCHOLESTEROLEMIA * DO NOT USE * (16) Peripheral arterial disease Code(s): I73.9 - PERIPHERAL VASCULAR DISEASE, UNSPECIFIED Assessment/Plan 1. Gangrene right foot with underlying PAD s/p infrapoplitial SHIRT CREASER and right partial 2nd toe amputation, S/P right TMA POD#1 2. CAD, [place], S/P CABG, angina pectoris 3. Ischemic dilated cardiomyopathy S/P ICD ([employer]), history of failure 4. HTN/HCVD 5. Type 2 DM 6. Hypercholesterolemia 7. ESRD on HD MWF 8. Anemia due to chronic disease 9. Orthostatic near syncope 10. Hypothyroidism PLAN: 1. Empiric antibiotics and post operative wound care 2. Continue Carvedilol, Lipitor and Altace on non HD days as hemodynamics tolerate 3. Continue Plavix 4. DVT and GI prophylaxis 5. Surgical input noted Further plans are to follow Ashvin Rueda MD
--- NOTE | 2016-08-20 16:36 | PN ---
Progress Note, Physician History of Present Illness: S/P TMA No c/o pain No fever/ chills - Current Medication List Current Medications: Active Medications Acetaminophen (Tylenol -) 650 mg PO Q6HPO [facility] Last Admin: 08/20/16 15:18 Dose: Not Given Albuterol Sulfate (Ventolin 0.083% Nebulizer Soln -) 1 amp NEB Q4H PRN PRN Reason: SHORT OF BREATH/WHEEZING Last Admin: 08/20/16 11:12 Dose: 1 amp Atorvastatin Calcium (Lipitor -) 20 mg PO HS [facility] Last Admin: 08/19/16 21:58 Dose: 20 mg Calcium Carbonate (Calcium Carb Oral Suspension -) 500 mg PO DAILY PRN PRN Reason: INDIGESTION Carvedilol (Coreg -) 6.25 mg PO BID [facility] Last Admin: 08/20/16 10:13 Dose: 6.25 mg Clopidogrel Bisulfate (Plavix -) 75 mg PO DAILY [facility] Last Admin: 08/20/16 10:13 Dose: 75 mg Diphenhydramine HCl (Benadryl -) 25 mg PO Q6H PRN PRN Reason: pm Epoetin Flako (Epogen -) 4,000 units IVPUSH ONCE ONE Stop: 08/21/16 08:01 Fentanyl (Sublimaze Injection -) 25 mcg IVPUSH [id number] PRN PRN Reason: PAIN Stop: 08/22/16 15:28 Guaifenesin (Diabetic Tussin Dm -) 5 ml PO Q6H PRN PRN Reason: COUGH Heparin Sodium (Porcine) (Heparin -) 5,000 unit SQ BID [facility] Last Admin: 08/20/16 10:12 Dose: 5,000 unit Hydromorphone HCl (Dilaudid Injection -) 1 mg IVPB Q3H PRN PRN Reason: PAIN LEVEL 1-5 Piperacillin Sod/Tazobactam Sod (Zosyn 2.25gm Ivpb (Pre-Docked)) 50 mls @ 100 mls/hr IVPB Q8H-IV [facility] PRN Reason: Protocol Last Admin: 08/20/16 10:12 Dose: 100 mls/hr Vancomycin HCl 1,000 mg/ (Dextrose) 250 mls @ 250 mls/hr IVPB ONCE ONE PRN Reason: Protocol Stop: 08/21/16 08:59 Insulin Aspart (Novolog Vial Sliding Scale -) 1 vial SQ ACHS [facility] PRN Reason: Protocol Last Admin: 08/20/16 16:15 Dose: Not Given Levothyroxine Sodium (Synthroid -) 75 mcg PO DAILY@0700 [facility] Last Admin: 08/20/16 06:13 Dose: 75 mcg Magnesium Chloride (Slow-Mag -) 64 mg PO DAILY [facility] Last Admin: 08/20/16 10:13 Dose: 64 mg Midodrine (Proamatine -) 10 mg PO MoWeFr@1000 [facility] Multivit/Ca Carb/B Cmplx/FA/Prenat (Nephro-Coleman -) 1 tablet PO DAILY [facility] Last Admin: 08/20/16 10:13 Dose: 1 tablet Oxycodone HCl (Roxicodone -) 5 mg PO Q4H PRN PRN Reason: PAIN LEVEL 1-5 Pantoprazole Sodium (Protonix -) 20 mg PO DAILY [facility] Last Admin: 08/20/16 10:13 Dose: 20 mg - Objective Vital Signs: Vital Signs Temperature 97.3 F L 08/20/16 13:44 Pulse Rate 71 08/20/16 13:44 Respiratory Rate 17 08/20/16 13:44 Blood Pressure 90/60 08/20/16 10:00 O2 Sat by Pulse Oximetry (%) 96 08/20/16 09:00 Constitutional: Yes: No Distress Eyes: Yes: Conjunctiva Clear Cardiovascular: Yes: Regular Rate and Rhythm, S1, S2 Respiratory: Yes: CTA Bilaterally Gastrointestinal: Yes: Normal Bowel Sounds, Soft. No: Tenderness Extremities: Yes: Other (post op dressing in plACE) Labs: CBC, BMP 08/19/16 18:15 08/19/16 21:45 INR, PTT INR 1.40 (0.82-1.09) H 08/13/16 17:00 Assessment/Plan Gangrene, R foot s/p TMA Possible cellulitis ESRD Continue antibiotics perioperatively
[2016-08-20] MEDS ORDERED: PIPERACILLIN/TAZOB 3.375 GM 50 ML IVPB ONE (16:37)
[2016-08-20] MEDS: ATORVASTATIN CA 20 MG TABLET (FP) PO SCH (21:42)
[2016-08-21] MEDS: ACETAMINOPHEN 325 MG TABLET (FP) PO SCH ×4 (00:15→17:43)
[2016-08-21] MEDS: PIPERACILLIN/TAZOB 2.25 GM 50 ML IVPB SCH ×3 (01:17→17:44)
[2016-08-21] MEDS: ALBUTEROL SO4 0.083% IH SOL 2.5 MG/3 ML VIAL.NEB. NEB PRN ×3 (02:28→23:55)
[2016-08-21] MEDS: INSULIN SLIDING SCALE (NOVOLOG) 1 VIAL SQ SCH ×4 (06:07→21:30)
[2016-08-21] MEDS: LEVOTHYROXINE NA 75 MCG TABLET (FP) PO SCH (06:12)
[2016-08-21 07:54] LABS: MCH 28.3 pg (25.7-33.7); MEAN CELL VOLUME 91.4 fl (80-96); PLATELET COUNT 141 K/MM3 (134-434); WHITE BLOOD COUNT 9.5 K/mm3 (4.0-10.0)
--- NOTE | 2016-08-21 08:24 | PN ---
Progress Note, Physician Chief Complaint: Events noted Not in distress POD#2 right TMA History of Present Illness: Patient was seen and examined. Awake and alert. Chart was reviewed Denies chest pain, SOB or palpitations Patient seen in dialysis unit - Current Medication List Current Medications: Active Medications Acetaminophen (Tylenol -) 650 mg PO Q6HPO [facility] Last Admin: 08/21/16 05:52 Dose: Not Given Albuterol Sulfate (Ventolin 0.083% Nebulizer Soln -) 1 amp NEB Q4H PRN PRN Reason: SHORT OF BREATH/WHEEZING Last Admin: 08/21/16 02:28 Dose: 1 amp Atorvastatin Calcium (Lipitor -) 20 mg PO HS [facility] Last Admin: 08/20/16 21:42 Dose: 20 mg Calcium Carbonate (Calcium Carb Oral Suspension -) 500 mg PO DAILY PRN PRN Reason: INDIGESTION Carvedilol (Coreg -) 6.25 mg PO BID [facility] Last Admin: 08/20/16 21:42 Dose: 6.25 mg Clopidogrel Bisulfate (Plavix -) 75 mg PO DAILY [facility] Last Admin: 08/20/16 10:13 Dose: 75 mg Diphenhydramine HCl (Benadryl -) 25 mg PO Q6H PRN PRN Reason: pm Epoetin Flako (Epogen -) 4,000 units IVPUSH ONCE ONE Stop: 08/21/16 09:01 Fentanyl (Sublimaze Injection -) 25 mcg IVPUSH [id number] PRN PRN Reason: PAIN Stop: 08/22/16 15:28 Guaifenesin (Diabetic Tussin Dm -) 5 ml PO Q6H PRN PRN Reason: COUGH Heparin Sodium (Porcine) (Heparin -) 5,000 unit SQ BID [facility] Last Admin: 08/20/16 21:41 Dose: 5,000 unit Hydromorphone HCl (Dilaudid Injection -) 1 mg IVPB Q3H PRN PRN Reason: PAIN LEVEL 1-5 Piperacillin Sod/Tazobactam Sod (Zosyn 2.25gm Ivpb (Pre-Docked)) 50 mls @ 100 mls/hr IVPB Q8H-IV [facility] PRN Reason: Protocol Last Admin: 08/21/16 01:17 Dose: 100 mls/hr Vancomycin HCl (Vancomycin (Pre-Docked)) 250 mls @ 166.667 mls/hr IVPB ONCE ONE PRN Reason: Protocol Stop: 08/21/16 10:29 Insulin Aspart (Novolog Vial Sliding Scale -) 1 vial SQ ACHS [facility] PRN Reason: Protocol Last Admin: 08/21/16 06:07 Dose: Not Given Levothyroxine Sodium (Synthroid -) 75 mcg PO DAILY@0700 [facility] Last Admin: 08/21/16 06:12 Dose: 75 mcg Magnesium Chloride (Slow-Mag -) 64 mg PO DAILY [facility] Last Admin: 08/20/16 10:13 Dose: 64 mg Midodrine (Proamatine -) 10 mg PO MoWeFr@1000 [facility] Multivit/Ca Carb/B Cmplx/FA/Prenat (Nephro-Coleman -) 1 tablet PO DAILY [facility] Last Admin: 08/20/16 10:13 Dose: 1 tablet Oxycodone HCl (Roxicodone -) 5 mg PO Q4H PRN PRN Reason: PAIN LEVEL 1-5 Pantoprazole Sodium (Protonix -) 20 mg PO DAILY [facility] Last Admin: 08/20/16 10:13 Dose: 20 mg - Objective Vital Signs: Vital Signs Temperature 98.2 F 08/21/16 06:55 Pulse Rate 80 08/21/16 06:55 Respiratory Rate 18 08/21/16 06:55 Blood Pressure 80/48 08/21/16 06:55 O2 Sat by Pulse Oximetry (%) 97 08/20/16 21:00 Neck: Yes: Supple Cardiovascular: Yes: Regular Rate and Rhythm, S1, S2 Respiratory: Yes: Regular, CTA Bilaterally Gastrointestinal: Yes: Normal Bowel Sounds, Soft. No: Tenderness Extremities: Yes: Amputation (Right TMA) Edema: No Labs: CBC, BMP 08/21/16 07:00 Problem List - Problems (1) Anemia Code(s): D64.9 - ANEMIA, UNSPECIFIED Qualifiers: Anemia type: other cause Other causes of anemia: chronic disease, kidney Qualified Code(s): N18.9 - Chronic kidney disease, unspecified; D63.1 - Anemia in chronic kidney disease (2) Coronary artery disease Code(s): I25.10 - ATHSCL HEART DISEASE OF [place] CORONARY ARTERY W/O ANG PCTRS Qualifiers: Coronary Disease-Associated Artery/Lesion type: [place] artery [place] vs. transplanted heart: [place] heart Associated angina: without angina Qualified Code(s): I25.10 - Atherosclerotic heart disease of [place] coronary artery without angina pectoris (3) Diabetes Code(s): E11.9 - TYPE 2 DIABETES MELLITUS WITHOUT COMPLICATIONS Qualifiers: Diabetes mellitus type: type 2 Diabetes mellitus halfway insulin use : without halfway use Chronic kidney disease stage: on chronic dialysis (4) Gangrene of foot Code(s): I96 - GANGRENE, NOT ELSEWHERE CLASSIFIED (5) H/O myocardial infarction, greater than 8 weeks Code(s): I25.2 - OLD MYOCARDIAL INFARCTION (6) Ischemic dilated cardiomyopathy Code(s): I25.5 - ISCHEMIC CARDIOMYOPATHY (7) Pre-operative cardiovascular examination Code(s): Z01.810 - ENCOUNTER FOR PREPROCEDURAL CARDIOVASCULAR EXAMINATION (8) S/P CABG (coronary artery bypass graft) Code(s): Z95.1 - PRESENCE OF AORTOCORONARY BYPASS GRAFT (9) SOB (shortness of breath) Code(s): R06.02 - SHORTNESS OF BREATH (10) Single implantable cardioverter-defibrillator (ICD) in situ Code(s): Z95.810 - PRESENCE OF AUTOMATIC (IMPLANTABLE) CARDIAC DEFIBRILLATOR (11) Amputated toe of right foot Code(s): Z89.421 - ACQUIRED ABSENCE OF OTHER RIGHT TOE(S) (12) CHF (congestive heart failure) Code(s): I50.9 - HEART FAILURE, UNSPECIFIED Qualifiers: Congestive heart failure type: combined Congestive heart failure chronicity: acute on chronic Qualified Code(s): I50.43 - Acute on chronic combined systolic (congestive) and diastolic (congestive) heart failure (13) ESRD (end stage renal disease) Code(s): N18.6 - END STAGE RENAL DISEASE (14) HTN (hypertension) Code(s): I10 - ESSENTIAL (PRIMARY) HYPERTENSION Qualifiers: Hypertension type: essential hypertension Qualified Code(s): I10 - Essential (primary) hypertension (15) Hypercholesterolemia Code(s): E78.0 - PURE HYPERCHOLESTEROLEMIA * DO NOT USE * (16) Peripheral arterial disease Code(s): I73.9 - PERIPHERAL VASCULAR DISEASE, UNSPECIFIED Assessment/Plan 1. Gangrene right foot with underlying PAD s/p infrapoplitial [employer] and right partial 2nd toe amputation, S/P right TMA POD#2 2. CAD, ME, S/P CABG, angina pectoris 3. Ischemic dilated cardiomyopathy S/P ICD ([facility]), history of failure 4. HTN/HCVD 5. Type 2 DM 6. Hypercholesterolemia 7. ESRD on HD MWF 8. Anemia due to chronic disease 9. Orthostatic near syncope 10. Hypothyroidism PLAN: 1. Empiric antibiotics and post operative wound care 2. Continue Carvedilol, Lipitor and Altace on non HD days as hemodynamics tolerate 3. Continue Plavix 4. DVT and GI prophylaxis 5. HD and monitor electrolytes 6. PT Further plans are to follow Ashvin Rueda MD
[2016-08-21 08:33] LABS: CALCIUM 7.8 mg/dL (8.5-10.1)
[2016-08-21 08:34] LABS: CREATININE 4.3 mg/dL (0.7-1.3); PHOSPHOROUS 4.1 mg/dL (2.5-4.9)
[2016-08-21] MEDS ORDERED: VANCOMYCIN 1 GRAM (PRE-DOCKED) 250 ML IVPB ONE (09:00)
[2016-08-21] MEDS ORDERED: EPOETIN ALFA 2,000 UNITS/1 ML VIAL IVPUSH ONE (09:00)
--- NOTE | 2016-08-21 10:39 | PN ---
Progress Note, Physician Chief Complaint: patient seen and examined during HD no complaints POD 3 - Current Medication List Current Medications: Active Medications Acetaminophen (Tylenol -) 650 mg PO Q6HPO [facility] Last Admin: 08/21/16 05:52 Dose: Not Given Albuterol Sulfate (Ventolin 0.083% Nebulizer Soln -) 1 amp NEB Q4H PRN PRN Reason: SHORT OF BREATH/WHEEZING Last Admin: 08/21/16 02:28 Dose: 1 amp Atorvastatin Calcium (Lipitor -) 20 mg PO HS [facility] Last Admin: 08/20/16 21:42 Dose: 20 mg Calcium Carbonate (Calcium Carb Oral Suspension -) 500 mg PO DAILY PRN PRN Reason: INDIGESTION Carvedilol (Coreg -) 6.25 mg PO BID [facility] Last Admin: 08/20/16 21:42 Dose: 6.25 mg Clopidogrel Bisulfate (Plavix -) 75 mg PO DAILY [facility] Last Admin: 08/20/16 10:13 Dose: 75 mg Diphenhydramine HCl (Benadryl -) 25 mg PO Q6H PRN PRN Reason: pm Fentanyl (Sublimaze Injection -) 25 mcg IVPUSH [id number] PRN PRN Reason: PAIN Stop: 08/22/16 15:28 Guaifenesin (Diabetic Tussin Dm -) 5 ml PO Q6H PRN PRN Reason: COUGH Heparin Sodium (Porcine) (Heparin -) 5,000 unit SQ BID [facility] Last Admin: 08/20/16 21:41 Dose: 5,000 unit Hydromorphone HCl (Dilaudid Injection -) 1 mg IVPB Q3H PRN PRN Reason: PAIN LEVEL 1-5 Piperacillin Sod/Tazobactam Sod (Zosyn 2.25gm Ivpb (Pre-Docked)) 50 mls @ 100 mls/hr IVPB Q8H-IV [facility] PRN Reason: Protocol Last Admin: 08/21/16 01:17 Dose: 100 mls/hr Insulin Aspart (Novolog Vial Sliding Scale -) 1 vial SQ ACHS [facility] PRN Reason: Protocol Last Admin: 08/21/16 06:07 Dose: Not Given Levothyroxine Sodium (Synthroid -) 75 mcg PO DAILY@0700 [facility] Last Admin: 08/21/16 06:12 Dose: 75 mcg Magnesium Chloride (Slow-Mag -) 64 mg PO DAILY [facility] Last Admin: 08/20/16 10:13 Dose: 64 mg Midodrine (Proamatine -) 10 mg PO MoWeFr@1000 [facility] Multivit/Ca Carb/B Cmplx/FA/Prenat (Nephro-Coleman -) 1 tablet PO DAILY [facility] Last Admin: 08/20/16 10:13 Dose: 1 tablet Oxycodone HCl (Roxicodone -) 5 mg PO Q4H PRN PRN Reason: PAIN LEVEL 1-5 Pantoprazole Sodium (Protonix -) 20 mg PO DAILY [facility] Last Admin: 08/20/16 10:13 Dose: 20 mg - Objective Vital Signs: Vital Signs Temperature 98.2 F 08/21/16 06:55 Pulse Rate 80 08/21/16 09:30 Respiratory Rate 18 08/21/16 09:30 Blood Pressure 92/60 08/21/16 09:30 O2 Sat by Pulse Oximetry (%) 97 08/20/16 21:00 Constitutional: Yes: Calm Neck: Yes: Trachea Midline Cardiovascular: Yes: Regular Rate and Rhythm, S1, S2 Respiratory: Yes: CTA Bilaterally Gastrointestinal: Yes: Normal Bowel Sounds, Soft Edema: No Wound/Incision: Yes: Dressing Dry and Intact Labs: CBC, BMP 08/21/16 07:00 08/21/16 07:00 INR, PTT INR 1.40 (0.82-1.09) H 08/13/16 17:00 Problem List - Problems (1) Gangrene of foot Assessment/Plan: s/p TMA POD 3 on zosyn dressing change on 08/22 Code(s): I96 - GANGRENE, NOT ELSEWHERE CLASSIFIED (2) Anemia Assessment/Plan: sec to CKD epogen during HD Code(s): D64.9 - ANEMIA, UNSPECIFIED Qualifiers: Anemia type: other cause Other causes of anemia: chronic disease, kidney Qualified Code(s): N18.9 - Chronic kidney disease, unspecified; D63.1 - Anemia in chronic kidney disease (3) Coronary artery disease Assessment/Plan: plavix restarted Code(s): I25.10 - ATHSCL HEART DISEASE OF [place] CORONARY ARTERY W/O ANG PCTRS Qualifiers: Coronary Disease-Associated Artery/Lesion type: [place] artery [place] vs. transplanted heart: [place] heart Associated angina: without angina Qualified Code(s): I25.10 - Atherosclerotic heart disease of [place] coronary artery without angina pectoris (4) ESRD (end stage renal disease) Assessment/Plan: HD per renal MWF schedule midodrine as well Code(s): N18.6 - END STAGE RENAL DISEASE (5) Hypothyroidism Assessment/Plan: tsh elevated synthroid dose adjusted recheck tsh in 2 weeks Code(s): E03.9 - HYPOTHYROIDISM, UNSPECIFIED Qualifiers: Hypothyroidism type: unspecified Qualified Code(s): E03.9 - Hypothyroidism, unspecified (6) Diabetes Assessment/Plan: gaby katherine will hold sliding scale hga1c 5.7 lipid panel Code(s): E11.9 - TYPE 2 DIABETES MELLITUS WITHOUT COMPLICATIONS Qualifiers: Diabetes mellitus type: type 2 Diabetes mellitus fdc insulin use : without fdc use Chronic kidney disease stage: on chronic dialysis
[2016-08-21] MEDS ORDERED: PT OWN MED DRAWER 7, Y5N ONE (10:46)
[2016-08-21] MEDS: MAGNESIUM CL 64 MG TABLET.SA PO SCH (10:55)
[2016-08-21] MEDS: PANTOPRAZOLE 20 MG TABLET (FP) PO SCH (10:55)
[2016-08-21] MEDS: CARVEDILOL 6.25 MG TABLET (FP) PO SCH ×2 (10:56→21:29)
[2016-08-21] MEDS: VITAMIN B COMP W-C 1 EA TABLET PO SCH (10:56)
[2016-08-21] MEDS: MIDODRINE HCL 5 MG TABLET PO SCH (10:56)
[2016-08-21] MEDS: HEPARIN NA (PORCINE) 5,000 UNITS/ML 1ML VIAL SQ SCH ×2 (10:56→21:29)
[2016-08-21] MEDS: CLOPIDOGREL BISULFATE 75 MG TABLET (FP) PO SCH (10:57)
--- NOTE | 2016-08-21 13:28 | PATH ---
Surgical Pathology Report Patient Name: GHULAM RAYA [facility]. Rec. #: [id number] /Age/Gender: 1935 (Age: 81) / M Account: [id number] Location: [address] [place] [address]/[facility] Taken: 08/19/2016 Received: 08/20/2016 Reported: 08/21/2016 Physicians: Rodrigo Candelario M.D. Specimen(s) Received RIGHT FOREFOOT Clinical History Right foot gangrene Final Diagnosis RIGHT FOREFOOT, AMPUTATION: SKIN, UNDERLYING SOFT TISSUE AND BONE WITH GANGRENOUS NECROSIS. SKIN AND SOFT TISSUE AT RESECTION MARGIN APPEAR VIABLE WITH FIBROSIS. BONE AT RESECTION MARGIN APPEARS VIABLE. Electronically Signed Curt Shrestha M.D. Gross Description Received in formalin labeled "right forefoot" is a 9.5 x 9.0 x 4.5 cm right distal foot amputation specimen. The second digit appears to have been previously amputated and there are black sutures at the previous amputation site. The distal volar surface displays a 6.8 x 6.5 cm black, gangrenous lesion. The lesion involves the first, third and fourth digits as well as the previous amputation site. The lesion extends to 1.0 cm from the skin and soft tissue margin of resection. The lesion involves the underlying bone. Natural Resources Engineer sections are submitted in 8 cassettes as follows: 1-previous amputation site; 2-lesion with underlying bone, following decalcification; 3-skin and soft tissue margin of resection; 4-first metatarsal bone margin of resection, following decalcification; 5-second metatarsal bone margin of resection, following decalcification; 6-third metatarsal bone margin of resection, following decalcification; 7-fourth metatarsal bone margin of resection, following decalcification; 8-fifth metatarsal bone margin of resection, following decalcification. 08/20/201608/20/2016
--- NOTE | 2016-08-21 15:20 | PN ---
Progress Note (short form) - Note Progress Note: Renal Follow up for ESRD on HD Pt seen and examined with dialysis this morning BP marginal, 1.5 L UF pt without complaints has Mild SOB that is improved with dialysis no N/V/D Vital Signs Temperature 98 F 08/21/16 14:39 Pulse Rate 72 08/21/16 14:39 Respiratory Rate 18 08/21/16 14:39 Blood Pressure 99/62 08/21/16 14:39 O2 Sat by Pulse Oximetry (%) 97 08/21/16 09:00 Intake & Output 08/18/16 08/19/16 08/20/16 08/21/16 23:59 23:59 23:59 23:59 Intake Total 950 800 400 170 Output Total 0 0 Balance 950 800 400 170 Weight 156 lb 2 oz 156 lb 4 oz 161 lb 7 oz 159 lb 9 oz Gen: NAD, awake and alert, on NC O2 CVS: RRR, No M/R Lungs: + rales at lung bases Abd: soft NT/ND Ext: Right foot in dressing. no edema CBC, BMP 08/21/16 07:00 08/21/16 07:00 Current Medications Acetaminophen (Tylenol -) 650 mg PO Q6HPO [facility] Last Admin: 08/21/16 12:18 Dose: Not Given Albuterol Sulfate (Ventolin 0.083% Nebulizer Soln -) 1 amp NEB Q4H PRN PRN Reason: SHORT OF BREATH/WHEEZING Last Admin: 08/21/16 02:28 Dose: 1 amp Atorvastatin Calcium (Lipitor -) 20 mg PO HS [facility] Last Admin: 08/20/16 21:42 Dose: 20 mg Calcium Carbonate (Calcium Carb Oral Suspension -) 500 mg PO DAILY PRN PRN Reason: INDIGESTION Carvedilol (Coreg -) 6.25 mg PO BID [facility] Last Admin: 08/21/16 10:56 Dose: 6.25 mg Clopidogrel Bisulfate (Plavix -) 75 mg PO DAILY [facility] Last Admin: 08/21/16 10:57 Dose: 75 mg Diphenhydramine HCl (Benadryl -) 25 mg PO Q6H PRN PRN Reason: pm Fentanyl (Sublimaze Injection -) 25 mcg IVPUSH [id number] PRN PRN Reason: PAIN Stop: 08/22/16 15:28 Guaifenesin (Diabetic Tussin Dm -) 5 ml PO Q6H PRN PRN Reason: COUGH Heparin Sodium (Porcine) (Heparin -) 5,000 unit SQ BID [facility] Last Admin: 08/21/16 10:56 Dose: 5,000 unit Hydromorphone HCl (Dilaudid Injection -) 1 mg IVPB Q3H PRN PRN Reason: PAIN LEVEL 1-5 Piperacillin Sod/Tazobactam Sod (Zosyn 2.25gm Ivpb (Pre-Docked)) 50 mls @ 100 mls/hr IVPB Q8H-IV [facility] PRN Reason: Protocol Last Admin: 08/21/16 10:55 Dose: 100 mls/hr Insulin Aspart (Novolog Vial Sliding Scale -) 1 vial SQ ACHS [facility] PRN Reason: Protocol Last Admin: 08/21/16 12:04 Dose: Not Given Levothyroxine Sodium (Synthroid -) 75 mcg PO DAILY@0700 [facility] Last Admin: 08/21/16 06:12 Dose: 75 mcg Magnesium Chloride (Slow-Mag -) 64 mg PO DAILY [facility] Last Admin: 08/21/16 10:55 Dose: 64 mg Midodrine (Proamatine -) 10 mg PO MoWeFr@1000 [facility] Last Admin: 08/21/16 10:56 Dose: Not Given Multivit/Ca Carb/B Cmplx/FA/Prenat (Nephro-Coleman -) 1 tablet PO DAILY [facility] Last Admin: 08/21/16 10:56 Dose: 1 tablet Oxycodone HCl (Roxicodone -) 5 mg PO Q4H PRN PRN Reason: PAIN LEVEL 1-5 Pantoprazole Sodium (Protonix -) 20 mg PO DAILY [facility] Last Admin: 08/21/16 10:55 Dose: 20 mg A/P 81 year old Gentleman with PMhx of ESRD on HD (MWF @ [facility]), Hypertension, CAD s/p CABG, PVD s/p recent toe amputation presents with worsening gangrene of his right foot. #Gangrene/PVD s/p TMA On Vanco and Zosyn Vanco dosed by levels with dialysis #ESRD on HD tolerated HD today with 1.5 L UF pt continues to have sob an rales on exam, will plan for isolated UF tomorrow #CHF/CAD continue Coreg UF a tolerated with dialysis #Anemia No acute indication for transfusion BENEDICT with HD Zion Le DO
[2016-08-21] MEDS ORDERED: INSULIN DETEMIR 100 UNITS/ML MDV SQ ONE (20:58)
[2016-08-21] MEDS ORDERED: INSULIN (NOVOLOG) ASPART 100 UNITS/ML 10ML VIAL ONE (20:59)
[2016-08-21] MEDS: ATORVASTATIN CA 20 MG TABLET (FP) PO SCH (21:29)
[2016-08-22] MEDS: ACETAMINOPHEN 325 MG TABLET (FP) PO SCH ×4 (00:41→17:34)
[2016-08-22] MEDS: PIPERACILLIN/TAZOB 2.25 GM 50 ML IVPB SCH ×3 (01:41→17:36)
[2016-08-22] MEDS: ALBUTEROL SO4 0.083% IH SOL 2.5 MG/3 ML VIAL.NEB. NEB PRN ×4 (05:55→21:05)
[2016-08-22] MEDS: INSULIN SLIDING SCALE (NOVOLOG) 1 VIAL SQ SCH ×4 (06:03→21:40)
[2016-08-22] MEDS: LEVOTHYROXINE NA 75 MCG TABLET (FP) PO SCH (06:03)
[2016-08-22 08:03] LABS: MCH 28.5 pg (25.7-33.7); MCHC 30.7 g/dl (32.0-35.9); MEAN CELL VOLUME 92.8 fl (80-96); MEAN PLT VOLUME 9.2 fl (7.5-11.1); PLATELET COUNT 125 K/MM3 (134-434); RDW 15.9 % (11.9-15.9); WHITE BLOOD COUNT 9.7 K/mm3 (4.0-10.0)
[2016-08-22 08:32] LABS: CALCIUM 7.9 mg/dL (8.5-10.1); CREATININE 3.5 mg/dL (0.7-1.3); PHOSPHOROUS 3.6 mg/dL (2.5-4.9)
[2016-08-22] MEDS ORDERED: PT OWN MED DRAWER 7, Y5N ONE (09:57)
[2016-08-22] MEDS: CLOPIDOGREL BISULFATE 75 MG TABLET (FP) PO SCH (10:00)
[2016-08-22] MEDS: HEPARIN NA (PORCINE) 5,000 UNITS/ML 1ML VIAL SQ SCH ×2 (10:00→21:39)
[2016-08-22] MEDS: PANTOPRAZOLE 20 MG TABLET (FP) PO SCH (10:01)
[2016-08-22] MEDS: MAGNESIUM CL 64 MG TABLET.SA PO SCH (10:02)
[2016-08-22] MEDS: VITAMIN B COMP W-C 1 EA TABLET PO SCH (10:02)
[2016-08-22] MEDS: CARVEDILOL 6.25 MG TABLET (FP) PO SCH ×2 (10:19→21:39)
--- NOTE | 2016-08-22 13:25 | PN ---
Progress Note, Physician - Current Medication List Current Medications: Active Medications Acetaminophen (Tylenol -) 650 mg PO Q6HPO [facility] Last Admin: 08/22/16 13:25 Dose: Not Given Albuterol Sulfate (Ventolin 0.083% Nebulizer Soln -) 1 amp NEB Q4H PRN PRN Reason: SHORT OF BREATH/WHEEZING Last Admin: 08/22/16 11:35 Dose: 1 amp Atorvastatin Calcium (Lipitor -) 20 mg PO HS [facility] Last Admin: 08/21/16 21:29 Dose: 20 mg Calcium Carbonate (Calcium Carb Oral Suspension -) 500 mg PO DAILY PRN PRN Reason: INDIGESTION Carvedilol (Coreg -) 6.25 mg PO BID [facility] Last Admin: 08/22/16 10:19 Dose: Not Given Clopidogrel Bisulfate (Plavix -) 75 mg PO DAILY [facility] Last Admin: 08/22/16 10:00 Dose: 75 mg Diphenhydramine HCl (Benadryl -) 25 mg PO Q6H PRN PRN Reason: pm Fentanyl (Sublimaze Injection -) 25 mcg IVPUSH [id number] PRN PRN Reason: PAIN Stop: 08/22/16 15:28 Guaifenesin (Diabetic Tussin Dm -) 5 ml PO Q6H PRN PRN Reason: COUGH Heparin Sodium (Porcine) (Heparin -) 5,000 unit SQ BID [facility] Last Admin: 08/22/16 10:00 Dose: 5,000 unit Hydromorphone HCl (Dilaudid Injection -) 1 mg IVPB Q3H PRN PRN Reason: PAIN LEVEL 1-5 Piperacillin Sod/Tazobactam Sod (Zosyn 2.25gm Ivpb (Pre-Docked)) 50 mls @ 100 mls/hr IVPB Q8H-IV [facility] PRN Reason: Protocol Last Admin: 08/22/16 10:02 Dose: 100 mls/hr Insulin Aspart (Novolog Vial Sliding Scale -) 1 vial SQ ACHS [facility] PRN Reason: Protocol Last Admin: 08/22/16 13:24 Dose: Not Given Levothyroxine Sodium (Synthroid -) 75 mcg PO DAILY@0700 [facility] Last Admin: 08/22/16 06:03 Dose: 75 mcg Magnesium Chloride (Slow-Mag -) 64 mg PO DAILY [facility] Last Admin: 08/22/16 10:02 Dose: 64 mg Midodrine (Proamatine -) 10 mg PO MoWeFr@1000 [facility] Last Admin: 08/21/16 10:56 Dose: Not Given Multivit/Ca Carb/B Cmplx/FA/Prenat (Nephro-Coleman -) 1 tablet PO DAILY [facility] Last Admin: 08/22/16 10:02 Dose: 1 tablet Oxycodone HCl (Roxicodone -) 5 mg PO Q4H PRN PRN Reason: PAIN LEVEL 1-5 Pantoprazole Sodium (Protonix -) 20 mg PO DAILY [facility] Last Admin: 08/22/16 10:01 Dose: 20 mg - Objective Vital Signs: Vital Signs Temperature 98.0 F 08/22/16 06:40 Pulse Rate 66 08/22/16 08:50 Respiratory Rate 18 08/22/16 08:50 Blood Pressure 101/57 08/22/16 08:50 O2 Sat by Pulse Oximetry (%) 96 08/21/16 21:00 Cardiovascular: Yes: S1, S2 Respiratory: Yes: Regular, CTA Bilaterally Gastrointestinal: Yes: Normal Bowel Sounds, Soft Labs: CBC, BMP 08/22/16 06:45 08/22/16 06:45 INR, PTT INR 1.40 (0.82-1.09) H 08/13/16 17:00 Assessment/Plan - Problems (1) Gangrene of foot Assessment/Plan: s/p TMA POD 4 on zosyn dressing change on 08/22 Code(s): I96 - GANGRENE, NOT ELSEWHERE CLASSIFIED (2) Anemia Assessment/Plan: sec to CKD epogen during HD Code(s): D64.9 - ANEMIA, UNSPECIFIED Qualifiers: Anemia type: other cause Other causes of anemia: chronic disease, kidney Qualified Code(s): N18.9 - Chronic kidney disease, unspecified; D63.1 - Anemia in chronic kidney disease (3) Coronary artery disease Assessment/Plan: plavix restarted Code(s): I25.10 - ATHSCL HEART DISEASE OF [place] CORONARY ARTERY W/O ANG PCTRS Qualifiers: Coronary Disease-Associated Artery/Lesion type: [place] artery [place] vs. transplanted heart: [place] heart Associated angina: without angina Qualified Code(s): I25.10 - Atherosclerotic heart disease of [place] coronary artery without angina pectoris (4) ESRD (end stage renal disease) Assessment/Plan: HD per renal MWF schedule midodrine as well Code(s): N18.6 - END STAGE RENAL DISEASE (5) Hypothyroidism Assessment/Plan: tsh elevated synthroid dose adjusted recheck tsh in 2 weeks Code(s): E03.9 - HYPOTHYROIDISM, UNSPECIFIED Qualifiers: Hypothyroidism type: unspecified Qualified Code(s): E03.9 - Hypothyroidism, unspecified (6) Diabetes Assessment/Plan: gaby long will hold sliding scale hga1c 5.7 lipid panel Code(s): E11.9 - TYPE 2 DIABETES MELLITUS WITHOUT COMPLICATIONS Qualifiers: Diabetes mellitus type: type 2 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
--- NOTE | 2016-08-22 15:02 | PN ---
Progress Note (short form) - Note Progress Note: Chief Complaint: Events noted, Notes reviewed, POD#3 post right TMA, Patient denies any chest discomfort or dyspnea History of Present Illness: Seen and examined. Events noted, Notes reviewed, POD#3 post right TMA, Patient denies any chest discomfort or dyspnea - Current Medication List Current Medications Acetaminophen (Tylenol -) 650 mg PO Q6HPO [facility] Last Admin: 08/22/16 13:25 Dose: Not Given Albuterol Sulfate (Ventolin 0.083% Nebulizer Soln -) 1 amp NEB Q4H PRN PRN Reason: SHORT OF BREATH/WHEEZING Last Admin: 08/22/16 11:35 Dose: 1 amp Atorvastatin Calcium (Lipitor -) 20 mg PO HS [facility] Last Admin: 08/21/16 21:29 Dose: 20 mg Calcium Carbonate (Calcium Carb Oral Suspension -) 500 mg PO DAILY PRN PRN Reason: INDIGESTION Carvedilol (Coreg -) 6.25 mg PO BID [facility] Last Admin: 08/22/16 10:19 Dose: Not Given Clopidogrel Bisulfate (Plavix -) 75 mg PO DAILY [facility] Last Admin: 08/22/16 10:00 Dose: 75 mg Diphenhydramine HCl (Benadryl -) 25 mg PO Q6H PRN PRN Reason: pm Fentanyl (Sublimaze Injection -) 25 mcg IVPUSH [id number] PRN PRN Reason: PAIN Stop: 08/22/16 15:28 Guaifenesin (Diabetic Tussin Dm -) 5 ml PO Q6H PRN PRN Reason: COUGH Heparin Sodium (Porcine) (Heparin -) 5,000 unit SQ BID [facility] Last Admin: 08/22/16 10:00 Dose: 5,000 unit Hydromorphone HCl (Dilaudid Injection -) 1 mg IVPB Q3H PRN PRN Reason: PAIN LEVEL 1-5 Piperacillin Sod/Tazobactam Sod (Zosyn 2.25gm Ivpb (Pre-Docked)) 50 mls @ 100 mls/hr IVPB Q8H-IV [facility] PRN Reason: Protocol Last Admin: 08/22/16 10:02 Dose: 100 mls/hr Insulin Aspart (Novolog Vial Sliding Scale -) 1 vial SQ ACHS [facility] PRN Reason: Protocol Last Admin: 08/22/16 13:24 Dose: Not Given Levothyroxine Sodium (Synthroid -) 75 mcg PO DAILY@0700 [facility] Last Admin: 08/22/16 06:03 Dose: 75 mcg Magnesium Chloride (Slow-Mag -) 64 mg PO DAILY [facility] Last Admin: 08/22/16 10:02 Dose: 64 mg Midodrine (Proamatine -) 10 mg PO MoWeFr@1000 [facility] Last Admin: 08/21/16 10:56 Dose: Not Given Multivit/Ca Carb/B Cmplx/FA/Prenat (Nephro-Coleman -) 1 tablet PO DAILY [facility] Last Admin: 08/22/16 10:02 Dose: 1 tablet Oxycodone HCl (Roxicodone -) 5 mg PO Q4H PRN PRN Reason: PAIN LEVEL 1-5 Pantoprazole Sodium (Protonix -) 20 mg PO DAILY [facility] Last Admin: 08/22/16 10:01 Dose: 20 mg - Objective Vital Signs: Last Vital Signs Temp Pulse Resp BP Pulse Ox 98.0 F 73 18 102/61 96 08/22/16 06:40 08/22/16 10:00 08/22/16 10:00 08/22/16 10:00 08/21/16 21:00 Neck: Supple Cardiovascular: S1 and S2 Regular Rate and Rhythm Respiratory: Clear to Auscultation and percussion Bilaterally Gastrointestinal: Soft benign Normal Bowel Sounds Extremities: Right TMA, Negative edema Labs: CBC, BMP 08/22/16 06:45 08/22/16 06:45 Assessment/Plan ASSESSMENT: 1. 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 CAD, [place], post CABG, angina pectoris 3. Ischemic dilated cardiomyopathy 4. Post ICD ([place] [employer] Device) 5. HTN/HCVD 6. DM 7. Hypercholesterolemia 8. Hypothyroidism 9. ESRD on HD 10. Anemia due to chronic disease PLAN: 1. Continue Carvedilol, Hemodynamics permitting 2. Continue Lipitor 3. Continue Plavix 4. HD as per renal service Alexandru Kerr MD
--- NOTE | 2016-08-22 17:01 | PN ---
Progress Note, Physician Chief Complaint: The patient seen in his bed. Comfortable. Very unhappy about the restricted diet. Has not had a bm in two days. had uneventful HD earlier. No chest pain, No shortness of breath. Seen by Dr. Blackmon earlier Wound healthy. - Current Medication List Current Medications: Active Medications Acetaminophen (Tylenol -) 650 mg PO Q6HPO [facility] Last Admin: 08/22/16 13:25 Dose: Not Given Albuterol Sulfate (Ventolin 0.083% Nebulizer Soln -) 1 amp NEB Q4H PRN PRN Reason: SHORT OF BREATH/WHEEZING Last Admin: 08/22/16 15:45 Dose: 1 amp Atorvastatin Calcium (Lipitor -) 20 mg PO HS [facility] Last Admin: 08/21/16 21:29 Dose: 20 mg Calcium Carbonate (Calcium Carb Oral Suspension -) 500 mg PO DAILY PRN PRN Reason: INDIGESTION Carvedilol (Coreg -) 6.25 mg PO BID [facility] Last Admin: 08/22/16 10:19 Dose: Not Given Clopidogrel Bisulfate (Plavix -) 75 mg PO DAILY [facility] Last Admin: 08/22/16 10:00 Dose: 75 mg Diphenhydramine HCl (Benadryl -) 25 mg PO Q6H PRN PRN Reason: pm Guaifenesin (Diabetic Tussin Dm -) 5 ml PO Q6H PRN PRN Reason: COUGH Heparin Sodium (Porcine) (Heparin -) 5,000 unit SQ BID [facility] Last Admin: 08/22/16 10:00 Dose: 5,000 unit Piperacillin Sod/Tazobactam Sod (Zosyn 2.25gm Ivpb (Pre-Docked)) 50 mls @ 100 mls/hr IVPB Q8H-IV [facility] PRN Reason: Protocol Last Admin: 08/22/16 10:02 Dose: 100 mls/hr Insulin Aspart (Novolog Vial Sliding Scale -) 1 vial SQ ACHS [facility] PRN Reason: Protocol Last Admin: 08/22/16 13:24 Dose: Not Given Levothyroxine Sodium (Synthroid -) 75 mcg PO DAILY@0700 [facility] Last Admin: 08/22/16 06:03 Dose: 75 mcg Magnesium Chloride (Slow-Mag -) 64 mg PO DAILY [facility] Last Admin: 08/22/16 10:02 Dose: 64 mg Midodrine (Proamatine -) 10 mg PO MoWeFr@1000 [facility] Last Admin: 08/21/16 10:56 Dose: Not Given Multivit/Ca Carb/B Cmplx/FA/Prenat (Nephro-Coleman -) 1 tablet PO DAILY [facility] Last Admin: 08/22/16 10:02 Dose: 1 tablet Pantoprazole Sodium (Protonix -) 20 mg PO DAILY [facility] Last Admin: 08/22/16 10:01 Dose: 20 mg Polyethylene Glycol (Miralax (For Daily Use) -) 17 gm PO DAILY [facility] - Objective Vital Signs: Vital Signs Temperature 97.5 F L 08/22/16 14:55 Pulse Rate 75 08/22/16 14:55 Respiratory Rate 20 08/22/16 14:55 Blood Pressure 102/61 08/22/16 10:00 O2 Sat by Pulse Oximetry (%) 96 08/21/16 21:00 Constitutional: Yes: Calm Eyes: Yes: Conjunctiva Clear HENT: Yes: Normocephalic Neck: Yes: Trachea Midline Cardiovascular: Yes: Regular Rate and Rhythm, S1, S2 Respiratory: Yes: Regular, CTA Bilaterally, Diminished Gastrointestinal: Yes: Normal Bowel Sounds, Distention, Other (Tympanic on percussion) Extremities: Yes: Amputation Neurological: Yes: Alert, Oriented Psychiatric: Yes: Alert, Oriented Labs: CBC, BMP 08/22/16 06:45 08/22/16 06:45 INR, PTT INR 1.40 (0.82-1.09) H 08/13/16 17:00 Problem List - Problems (1) Anemia Code(s): D64.9 - ANEMIA, UNSPECIFIED Qualifiers: Anemia type: other cause Other causes of anemia: chronic disease, kidney Qualified Code(s): N18.9 - Chronic kidney disease, unspecified; D63.1 - Anemia in chronic kidney disease (2) Coronary artery disease Code(s): I25.10 - ATHSCL HEART DISEASE OF [place] CORONARY ARTERY W/O ANG PCTRS Qualifiers: Coronary Disease-Associated Artery/Lesion type: [place] artery [place] vs. 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6 - END STAGE RENAL DISEASE (11) Right foot ulcer Code(s): L97.519 - NON-PRS CHRONIC ULCER OTH PRT RIGHT FOOT W UNSP SEVERITY Qualifiers: Non-pressure ulcer stage: unspecified non-pressure ulcer stage Qualified Code(s): L97.519 - Non-pressure chronic ulcer of other part of right foot with unspecified severity Assessment/Plan The patient had HD earlier. Tolerated well. No evidence of overt fluid overload Will change diet to 2 Gm Sodium Regular diet. Wound care and rest of the discharge plans as per Dr. Blackmon. Next HD on Wednesday. Nae Mukherjee MD
[2016-08-22] MEDS: POLYETHYLENE GLYCOL 3350 119 GM BTL PO SCH (17:32)
[2016-08-22] MEDS: ATORVASTATIN CA 20 MG TABLET (FP) PO SCH (21:38)
[2016-08-23] MEDS: ACETAMINOPHEN 325 MG TABLET (FP) PO SCH ×4 (00:09→17:08)
[2016-08-23] MEDS: ALBUTEROL SO4 0.083% IH SOL 2.5 MG/3 ML VIAL.NEB. NEB PRN ×3 (00:40→20:49)
[2016-08-23] MEDS: PIPERACILLIN/TAZOB 2.25 GM 50 ML IVPB SCH ×2 (01:12→10:33)
[2016-08-23] MEDS: LEVOTHYROXINE NA 75 MCG TABLET (FP) PO SCH (06:09)
[2016-08-23] MEDS: INSULIN SLIDING SCALE (NOVOLOG) 1 VIAL SQ SCH ×4 (06:10→21:59)
[2016-08-23] MEDS ORDERED: PT OWN MED DRAWER 7, Y5N ONE (09:21)
[2016-08-23] MEDS ORDERED: ALBUTEROL SO4 2.5/IPRATROPIUM 0.5 INH SOL 3 ML VIAL.NEB. NEB ONE (10:07)
--- NOTE | 2016-08-23 10:08 | PN ---
Progress Note, Physician History of Present Illness: C/O SOB - Current Medication List Current Medications: Active Medications Acetaminophen (Tylenol -) 650 mg PO Q6HPO [facility] Last Admin: 08/23/16 06:09 Dose: Not Given Albuterol Sulfate (Ventolin 0.083% Nebulizer Soln -) 1 amp NEB Q4H PRN PRN Reason: SHORT OF BREATH/WHEEZING Last Admin: 08/23/16 04:59 Dose: 1 amp Albuterol/Ipratropium (Duoneb -) 1 amp NEB ONCE ONE Stop: 08/23/16 10:08 Albuterol/Ipratropium (Duoneb -) 1 amp NEB QIDR [place] Atorvastatin Calcium (Lipitor -) 20 mg PO HS [facility] Last Admin: 08/22/16 21:38 Dose: 20 mg Calcium Carbonate (Calcium Carb Oral Suspension -) 500 mg PO DAILY PRN PRN Reason: INDIGESTION Carvedilol (Coreg -) 6.25 mg PO BID [facility] Last Admin: 08/22/16 21:39 Dose: 6.25 mg Clopidogrel Bisulfate (Plavix -) 75 mg PO DAILY [facility] Last Admin: 08/22/16 10:00 Dose: 75 mg Diphenhydramine HCl (Benadryl -) 25 mg PO Q6H PRN PRN Reason: pm Guaifenesin (Diabetic Tussin Dm -) 5 ml PO Q6H PRN PRN Reason: COUGH Heparin Sodium (Porcine) (Heparin -) 5,000 unit SQ BID [facility] Last Admin: 08/22/16 21:39 Dose: 5,000 unit Piperacillin Sod/Tazobactam Sod (Zosyn 2.25gm Ivpb (Pre-Docked)) 50 mls @ 100 mls/hr IVPB Q8H-IV [place] PRN Reason: Protocol Last Admin: 08/23/16 01:12 Dose: 100 mls/hr Insulin Aspart (Novolog Vial Sliding Scale -) 1 vial SQ ACHS [facility] PRN Reason: Protocol Last Admin: 08/23/16 06:10 Dose: Not Given Levothyroxine Sodium (Synthroid -) 75 mcg PO DAILY@0700 [facility] Last Admin: 08/23/16 06:09 Dose: 75 mcg Magnesium Chloride (Slow-Mag -) 64 mg PO DAILY [facility] Last Admin: 08/22/16 10:02 Dose: 64 mg Methylprednisolone Sodium Succinate (Solu-Medrol -) 40 mg IVPB Q8H-IV [facility] Midodrine (Proamatine -) 10 mg PO MoWeFr@1000 [facility] Last Admin: 08/21/16 10:56 Dose: Not Given Multivit/Ca Carb/B Cmplx/FA/Prenat (Nephro-Coleman -) 1 tablet PO DAILY [facility] Last Admin: 08/22/16 10:02 Dose: 1 tablet Pantoprazole Sodium (Protonix -) 20 mg PO DAILY [facility] Last Admin: 08/22/16 10:01 Dose: 20 mg Polyethylene Glycol (Miralax (For Daily Use) -) 17 gm PO DAILY [facility] Last Admin: 08/22/16 17:32 Dose: 17 grams - Objective Vital Signs: Vital Signs Temperature 97.6 F 08/23/16 05:42 Pulse Rate 82 08/23/16 05:42 Respiratory Rate 20 08/23/16 05:42 Blood Pressure 102/55 08/23/16 05:42 O2 Sat by Pulse Oximetry (%) 95 08/22/16 21:00 Cardiovascular: Yes: S1, S2 Respiratory: Yes: Diminished, Wheezes Gastrointestinal: Yes: Normal Bowel Sounds, Soft, Distention Edema: Yes Labs: CBC, BMP 08/22/16 06:45 08/22/16 06:45 INR, PTT INR 1.40 (0.82-1.09) H 08/13/16 17:00 Assessment/Plan - Problems (1) Gangrene of foot Assessment/Plan: s/p TMA POD 4 on zosyn dressing change on 08/22 Code(s): I96 - GANGRENE, NOT ELSEWHERE CLASSIFIED (2) Anemia Assessment/Plan: sec to CKD epogen during HD Code(s): D64.9 - ANEMIA, UNSPECIFIED Qualifiers: Anemia type: other cause Other causes of anemia: chronic disease, kidney Qualified Code(s): N18.9 - Chronic kidney disease, unspecified; D63.1 - Anemia in chronic kidney disease (3) Coronary artery disease Assessment/Plan: plavix restarted Code(s): I25.10 - ATHSCL HEART DISEASE OF [place] CORONARY ARTERY W/O ANG PCTRS Qualifiers: Coronary Disease-Associated Artery/Lesion type: [place] artery [place] vs. transplanted heart: [place] heart Associated angina: without angina Qualified Code(s): I25.10 - Atherosclerotic heart disease of [place] coronary artery without angina pectoris (4) ESRD (end stage renal disease) Assessment/Plan: HD per renal MWF schedule midodrine as well Code(s): N18.6 - END STAGE RENAL DISEASE (5) Hypothyroidism Assessment/Plan: tsh elevated synthroid dose adjusted recheck tsh in 2 weeks Code(s): E03.9 - HYPOTHYROIDISM, UNSPECIFIED Qualifiers: Hypothyroidism type: unspecified Qualified Code(s): E03.9 - Hypothyroidism, unspecified (6) Diabetes Assessment/Plan: gaby gueropreetacacia will hold sliding scale hga1c 5.7 lipid panel Code(s): E11.9 - TYPE 2 DIABETES MELLITUS WITHOUT COMPLICATIONS Qualifiers: Diabetes mellitus type: type 2 Diabetes mellitus ski guide insulin use : without ski guide use Chronic kidney disease stage: on chronic dialysis (7) SOB-COPD Assessment/Plan: NEBS IV SOLUMEDROL CXR
[2016-08-23] MEDS: MAGNESIUM CL 64 MG TABLET.SA PO SCH (10:33)
[2016-08-23] MEDS: VITAMIN B COMP W-C 1 EA TABLET PO SCH (10:33)
[2016-08-23] MEDS: CARVEDILOL 6.25 MG TABLET (FP) PO SCH ×2 (10:34→21:26)
[2016-08-23] MEDS: PANTOPRAZOLE 20 MG TABLET (FP) PO SCH (10:34)
[2016-08-23] MEDS: CLOPIDOGREL BISULFATE 75 MG TABLET (FP) PO SCH (10:35)
[2016-08-23] MEDS: HEPARIN NA (PORCINE) 5,000 UNITS/ML 1ML VIAL SQ SCH ×2 (10:35→21:27)
[2016-08-23] MEDS: POLYETHYLENE GLYCOL 3350 119 GM BTL PO SCH (10:35)
[2016-08-23] MEDS: methylPREDNISolone NA SUCC 40 MG/1 ML VIAL IVPB SCH ×2 (10:38→17:21)
[2016-08-23] MEDS ORDERED: INSULIN (NOVOLOG) ASPART 100 UNITS/ML 10ML VIAL ONE (11:40)
[2016-08-23] MEDS: ALBUTEROL SO4 2.5/IPRATROPIUM 0.5 INH SOL 3 ML VIAL.NEB. NEB SCH ×2 (11:40→18:27)
[2016-08-23] MEDS ORDERED: GENTAMICIN INJECTION 100 MG in SODIUM CHLORIDE 97.5 ML IVPB ONE (13:32)
--- NOTE | 2016-08-23 13:39 | PN ---
Progress Note (short form) - Note Progress Note: chart reviewed asked to f/u for fever to 102.7 rectal this am he is awake but fatigued no complaints per nurse foot wound examined by surgeon yesterday and was incision was okay has been on vancomycin and zosyn since admission 08/13 s/p TMA 08/19 cxray with bibasilar changes coonstipation- +bm after mmiralax today no diarrhea Vital Signs Period Temp Pulse Resp BP Sys/Pineda Pulse Ox Last 24 Hr 97.5 F-102.7 F 75-112 20-20 102-123/50-55 95-98 cor-rrr lungs decreased bs at bases abd soft, distended, nt avg left forearm +thrill TMA site with sutures intact no drainage CBC, BMP 08/22/16 06:45 08/22/16 06:45 a/p fever pod #4 ESRD/HD PVD reculture now check vancomycin trough now cbc now switch gentamicin one dose (empiric) doubt pneumonia will redose vancomycin based on level empiric switch to carbapenem dosed for HD
[2016-08-23] MEDS ORDERED: MEROPENEM 500 MG VIAL (RESTRICTED TO ID) IVPB SCH (13:45)
[2016-08-23 14:12] LABS: MCH 28.2 pg (25.7-33.7); MCHC 30.5 g/dl (32.0-35.9); MEAN CELL VOLUME 92.4 fl (80-96); MEAN PLT VOLUME 8.9 fl (7.5-11.1); PLATELET COUNT 145 K/MM3 (134-434); RDW 16.5 % (11.9-15.9); WHITE BLOOD COUNT 8.2 K/mm3 (4.0-10.0)
--- NOTE | 2016-08-23 14:14 | PN ---
Progress Note (short form) - Note Progress Note: Chief Complaint: Events noted, Notes reviewed, POD#4 post right TMA, confused and disoriented, patient denies any chest discomfort or dyspnea History of Present Illness: Seen and examined. Events noted, Notes reviewed, POD#4 post right TMA, confused and disoriented, patient denies any chest discomfort or dyspnea Patient is currently Febrile - Current Medication List Current Medications Acetaminophen (Tylenol -) 650 mg PO Q6HPO [facility] Last Admin: 08/23/16 11:55 Dose: 650 mg Albuterol Sulfate (Ventolin 0.083% Nebulizer Soln -) 1 amp NEB Q4H PRN PRN Reason: SHORT OF BREATH/WHEEZING Last Admin: 08/23/16 04:59 Dose: 1 amp Albuterol/Ipratropium (Duoneb -) 1 amp NEB QIDR [facility] Last Admin: 08/23/16 11:40 Dose: 1 amp Atorvastatin Calcium (Lipitor -) 20 mg PO HS [facility] Last Admin: 08/22/16 21:38 Dose: 20 mg Calcium Carbonate (Calcium Carb Oral Suspension -) 500 mg PO DAILY PRN PRN Reason: INDIGESTION Carvedilol (Coreg -) 6.25 mg PO BID [facility] Last Admin: 08/23/16 10:34 Dose: 6.25 mg Clopidogrel Bisulfate (Plavix -) 75 mg PO DAILY [facility] Last Admin: 08/23/16 10:35 Dose: 75 mg Diphenhydramine HCl (Benadryl -) 25 mg PO Q6H PRN PRN Reason: pm Guaifenesin (Diabetic Tussin Dm -) 5 ml PO Q6H PRN PRN Reason: COUGH Heparin Sodium (Porcine) (Heparin -) 5,000 unit SQ BID [facility] Last Admin: 08/23/16 10:35 Dose: 5,000 unit Gentamicin Sulfate 100 mg/ (Sodium Chloride) 100 mls @ 100 mls/hr IVPB ONCE ONE Stop: 08/23/16 14:31 Meropenem 500 mg/ Dextrose 100 mls @ 200 mls/hr IVPB Q24H [facility] Insulin Aspart (Novolog Vial Sliding Scale -) 1 vial SQ ACHS [facility] PRN Reason: Protocol Last Admin: 08/23/16 11:43 Dose: 8 unit Levothyroxine Sodium (Synthroid -) 75 mcg PO DAILY@0700 [facility] Last Admin: 08/23/16 06:09 Dose: 75 mcg Magnesium Chloride (Slow-Mag -) 64 mg PO DAILY [facility] Last Admin: 08/23/16 10:33 Dose: 64 mg Methylprednisolone Sodium Succinate (Solu-Medrol -) 40 mg IVPB Q8H-IV [facility] Last Admin: 08/23/16 10:38 Dose: 40 mg Midodrine (Proamatine -) 10 mg PO MoWeFr@1000 [facility] Last Admin: 08/21/16 10:56 Dose: Not Given Multivit/Ca Carb/B Cmplx/FA/Prenat (Nephro-Coleman -) 1 tablet PO DAILY [facility] Last Admin: 08/23/16 10:33 Dose: 1 tablet Pantoprazole Sodium (Protonix -) 20 mg PO DAILY [facility] Last Admin: 08/23/16 10:34 Dose: 20 mg Polyethylene Glycol (Miralax (For Daily Use) -) 17 gm PO DAILY [facility] Last Admin: 08/23/16 10:35 Dose: 17 grams - Objective Vital Signs: Last Vital Signs Temp Pulse Resp BP Pulse Ox 102.7 F H 85 20 123/50 98 08/23/16 10:00 08/23/16 10:00 08/23/16 10:00 08/23/16 10:00 08/23/16 09:00 Neck: Supple Cardiovascular: S1 and S2 Regular Rate and Rhythm Respiratory: Clear to Auscultation and percussion Bilaterally Gastrointestinal: Soft benign Normal Bowel Sounds Extremities: Right TMA, Dressing in situ Negative edema Labs: CBC, BMP 08/22/16 06:45 08/22/16 06:45 Assessment/Plan ASSESSMENT: 1. Gangrene right foot with underlying PAD post infra-poplitial FIELD SERVICES MANAGER and right TMA POD#4 2. CAD, [place], post CABG, angina pectoris 3. Ischemic dilated cardiomyopathy 4. Post ICD (St. Judes Device) 5. HTN/HCVD 6. DM 7. Hypercholesterolemia 8. 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 Hypothyroidism 10. ESRD on HD 11. Anemia due to chronic disease 12. Fever etiology of which is to be determined PLAN: 1. Continue Carvedilol, Hemodynamics permitting 2. Continue Lipitor 3. Continue Plavix 4. HD as per renal service 5. Evaluation of the above-noted febrile illness as per the primary team Alexandru Kerr MD
[2016-08-23] MEDS: MEROPENEM 500 MG in DEXTROSE 5%-WATER - 100 ML IVPB SCH (15:16)
[2016-08-23] MEDS: ATORVASTATIN CA 20 MG TABLET (FP) PO SCH (21:29)
[2016-08-24] MEDS: ACETAMINOPHEN 325 MG TABLET (FP) PO SCH ×4 (00:02→17:45)
[2016-08-24] MEDS: methylPREDNISolone NA SUCC 40 MG/1 ML VIAL IVPB SCH ×2 (01:37→14:21)
[2016-08-24] MEDS: ALBUTEROL SO4 2.5/IPRATROPIUM 0.5 INH SOL 3 ML VIAL.NEB. NEB SCH ×5 (05:47→23:32)
[2016-08-24] MEDS: LEVOTHYROXINE NA 75 MCG TABLET (FP) PO SCH (06:19)
[2016-08-24] MEDS: INSULIN SLIDING SCALE (NOVOLOG) 1 VIAL SQ SCH ×4 (06:20→22:22)
[2016-08-24] MEDS ORDERED: EPOETIN ALFA 2,000 UNITS/1 ML VIAL IVPUSH ONE (08:00)
[2016-08-24 08:43] LABS: MCH 28.2 pg (25.7-33.7); MEAN CELL VOLUME 93.9 fl (80-96); MEAN PLT VOLUME 9.1 fl (7.5-11.1); PLATELET COUNT 156 K/MM3 (134-434); RDW 16.6 % (11.9-15.9); WHITE BLOOD COUNT 7.6 K/mm3 (4.0-10.0)
[2016-08-24 08:55] LABS: CREATININE 4.8 mg/dL (0.7-1.3)
[2016-08-24] MEDS ORDERED: PT OWN MED DRAWER 7, Y5N ONE ×2 (11:44→12:18)
[2016-08-24] MEDS: CLOPIDOGREL BISULFATE 75 MG TABLET (FP) PO SCH (12:04)
[2016-08-24] MEDS: VITAMIN B COMP W-C 1 EA TABLET PO SCH (12:05)
[2016-08-24] MEDS: PANTOPRAZOLE 20 MG TABLET (FP) PO SCH (12:05)
[2016-08-24] MEDS: CARVEDILOL 6.25 MG TABLET (FP) PO SCH ×2 (12:05→22:22)
[2016-08-24] MEDS: HEPARIN NA (PORCINE) 5,000 UNITS/ML 1ML VIAL SQ SCH ×2 (12:05→22:22)
[2016-08-24] MEDS: POLYETHYLENE GLYCOL 3350 119 GM BTL PO SCH (12:14)
[2016-08-24] MEDS: MAGNESIUM CL 64 MG TABLET.SA PO SCH (12:21)
[2016-08-24] MEDS ORDERED: INSULIN (NOVOLOG) ASPART 100 UNITS/ML 10ML VIAL ONE (12:26)
[2016-08-24] MEDS: MIDODRINE HCL 5 MG TABLET PO SCH (12:37)
[2016-08-24] MEDS ORDERED: VANCOMYCIN 1 GRAM (PRE-DOCKED) 250 ML IVPB ONE (12:45)
--- NOTE | 2016-08-24 12:49 | PN ---
Progress Note, Physician Chief Complaint: patient seen in HD and again when he came to floor inHD he was sleeping, now he is more awake aelrt BP in 90/s patient being fed by family holding cardiac meds given low BP temp recheck now is 97.3 DNR - Current Medication List Current Medications: Active Medications Acetaminophen (Tylenol -) 650 mg PO Q6HPO [facility] Last Admin: 08/24/16 06:13 Dose: Not Given Albuterol Sulfate (Ventolin 0.083% Nebulizer Soln -) 1 amp NEB Q4H PRN PRN Reason: SHORT OF BREATH/WHEEZING Last Admin: 08/23/16 20:49 Dose: 1 amp Albuterol/Ipratropium (Duoneb -) 1 amp NEB QIDR [facility] Last Admin: 08/24/16 11:39 Dose: Not Given Atorvastatin Calcium (Lipitor -) 20 mg PO HS [facility] Last Admin: 08/23/16 21:29 Dose: 20 mg Calcium Carbonate (Calcium Carb Oral Suspension -) 500 mg PO DAILY PRN PRN Reason: INDIGESTION Carvedilol (Coreg -) 6.25 mg PO BID [facility] Last Admin: 08/24/16 12:05 Dose: Not Given Clopidogrel Bisulfate (Plavix -) 75 mg PO DAILY [facility] Last Admin: 08/24/16 12:04 Dose: 75 mg Diphenhydramine HCl (Benadryl -) 25 mg PO Q6H PRN PRN Reason: pm Guaifenesin (Diabetic Tussin Dm -) 5 ml PO Q6H PRN PRN Reason: COUGH Heparin Sodium (Porcine) (Heparin -) 5,000 unit SQ BID [facility] Last Admin: 08/24/16 12:05 Dose: 5,000 unit Meropenem 500 mg/ Dextrose 100 mls @ 200 mls/hr IVPB Q24H [facility] Last Admin: 08/23/16 15:16 Dose: 200 mls/hr Vancomycin HCl (Vancomycin (Pre-Docked)) 250 mls @ 166.667 mls/hr IVPB ONCE ONE PRN Reason: Protocol Stop: 08/24/16 14:14 Last Admin: 08/24/16 12:06 Dose: 166.667 mls/hr Insulin Aspart (Novolog Vial Sliding Scale -) 1 vial SQ ACHS [facility] PRN Reason: Protocol Last Admin: 08/24/16 12:28 Dose: 2 unit Levothyroxine Sodium (Synthroid -) 75 mcg PO DAILY@0700 [facility] Last Admin: 08/24/16 06:19 Dose: 75 mcg Magnesium Chloride (Slow-Mag -) 64 mg PO DAILY [facility] Last Admin: 08/24/16 12:21 Dose: 64 mg Methylprednisolone Sodium Succinate (Solu-Medrol -) 40 mg IVPB Q8H-IV [facility] Last Admin: 08/24/16 01:37 Dose: 40 mg Midodrine (Proamatine -) 10 mg PO MoWeFr@1000 [facility] Last Admin: 08/24/16 12:37 Dose: Not Given Multivit/Ca Carb/B Cmplx/FA/Prenat (Nephro-Coleman -) 1 tablet PO DAILY [facility] Last Admin: 08/24/16 12:05 Dose: 1 tablet Pantoprazole Sodium (Protonix -) 20 mg PO DAILY [facility] Last Admin: 08/24/16 12:05 Dose: 20 mg Polyethylene Glycol (Miralax (For Daily Use) -) 17 gm PO DAILY [facility] Last Admin: 08/24/16 12:14 Dose: Not Given - Objective Vital Signs: Vital Signs Temperature 97.3 F L 08/24/16 12:36 Pulse Rate 84 08/24/16 11:31 Respiratory Rate 18 08/24/16 11:31 Blood Pressure 91/57 08/24/16 11:31 O2 Sat by Pulse Oximetry (%) 99 08/23/16 20:48 Constitutional: Yes: Calm, Thin Cardiovascular: Yes: Regular Rate and Rhythm, S1, S2 Respiratory: Yes: CTA Bilaterally, Diminished (at bases) Gastrointestinal: Yes: Soft Edema: No Wound/Incision: Yes: Dressing Dry and Intact Labs: CBC, BMP 08/24/16 07:30 08/24/16 07:30 INR, PTT INR 1.40 (0.82-1.09) H 08/13/16 17:00 Problem List - Problems (1) Gangrene of foot Assessment/Plan: PAD s/p TMA POD 5 on zosyn stopped abx switched ID on board have fever spike on weekend was recultured Code(s): I96 - GANGRENE, NOT ELSEWHERE CLASSIFIED (2) Anemia Assessment/Plan: sec to CKD epogen during HD Code(s): D64.9 - ANEMIA, UNSPECIFIED Qualifiers: Anemia type: other cause Other causes of anemia: chronic disease, kidney Qualified Code(s): N18.9 - Chronic kidney disease, unspecified; D63.1 - Anemia in chronic kidney disease (3) Coronary artery disease Assessment/Plan: plavix restarted Code(s): I25.10 - ATHSCL HEART DISEASE OF [place] CORONARY ARTERY W/O ANG PCTRS Qualifiers: Coronary Disease-Associated Artery/Lesion type: [place] artery [place] vs. transplanted heart: [place] heart Associated angina: without angina Qualified Code(s): I25.10 - Atherosclerotic heart disease of [place] coronary artery without angina pectoris (4) ESRD (end stage renal disease) Assessment/Plan: HD per renal MWF schedule midodrine as well Code(s): N18.6 - END STAGE RENAL DISEASE (5) Hypothyroidism Assessment/Plan: tsh elevated synthroid dose adjusted recheck tsh in 2 weeks Code(s): E03.9 - HYPOTHYROIDISM, UNSPECIFIED Qualifiers: Hypothyroidism type: unspecified Qualified Code(s): E03.9 - Hypothyroidism, unspecified (6) Diabetes Assessment/Plan: gaby murphy will hold sliding scale hga1c 5.7 lipid panel Code(s): E11.9 - TYPE 2 DIABETES MELLITUS WITHOUT COMPLICATIONS Qualifiers: Diabetes mellitus type: type 2 Diabetes mellitus detention insulin use : without detention use Chronic kidney disease stage: on chronic dialysis
[2016-08-24] MEDS: MEROPENEM 500 MG in DEXTROSE 5%-WATER - 100 ML IVPB SCH (14:54)
--- NOTE | 2016-08-24 14:57 | PN ---
Progress Note, Physician History of Present Illness: Awake, lethargic No c/o foot pain Denies cp/ dyspnea/cough/ sputum Temps down-afebrile - Current Medication List Current Medications: Active Medications Acetaminophen (Tylenol -) 650 mg PO Q6HPO [facility] Last Admin: 08/24/16 14:20 Dose: Not Given Albuterol Sulfate (Ventolin 0.083% Nebulizer Soln -) 1 amp NEB Q4H PRN PRN Reason: SHORT OF BREATH/WHEEZING Last Admin: 08/23/16 20:49 Dose: 1 amp Albuterol/Ipratropium (Duoneb -) 1 amp NEB QIDR [facility] Last Admin: 08/24/16 11:39 Dose: Not Given Atorvastatin Calcium (Lipitor -) 20 mg PO HS [facility] Last Admin: 08/23/16 21:29 Dose: 20 mg Calcium Carbonate (Calcium Carb Oral Suspension -) 500 mg PO DAILY PRN PRN Reason: INDIGESTION Carvedilol (Coreg -) 6.25 mg PO BID [facility] Last Admin: 08/24/16 12:05 Dose: Not Given Clopidogrel Bisulfate (Plavix -) 75 mg PO DAILY [facility] Last Admin: 08/24/16 12:04 Dose: 75 mg Diphenhydramine HCl (Benadryl -) 25 mg PO Q6H PRN PRN Reason: pm Guaifenesin (Diabetic Tussin Dm -) 5 ml PO Q6H PRN PRN Reason: COUGH Heparin Sodium (Porcine) (Heparin -) 5,000 unit SQ BID [facility] Last Admin: 08/24/16 12:05 Dose: 5,000 unit Meropenem 500 mg/ Dextrose 100 mls @ 200 mls/hr IVPB Q24H [facility] Last Admin: 08/23/16 15:16 Dose: 200 mls/hr Insulin Aspart (Novolog Vial Sliding Scale -) 1 vial SQ ACHS [facility] PRN Reason: Protocol Last Admin: 08/24/16 12:28 Dose: 2 unit Levothyroxine Sodium (Synthroid -) 75 mcg PO DAILY@0700 [facility] Last Admin: 08/24/16 06:19 Dose: 75 mcg Magnesium Chloride (Slow-Mag -) 64 mg PO DAILY [facility] Last Admin: 08/24/16 12:21 Dose: 64 mg Midodrine (Proamatine -) 10 mg PO MoWeFr@1000 [facility] Last Admin: 08/24/16 12:37 Dose: Not Given Multivit/Ca Carb/B Cmplx/FA/Prenat (Nephro-Coleman -) 1 tablet PO DAILY [facility] Last Admin: 08/24/16 12:05 Dose: 1 tablet Pantoprazole Sodium (Protonix -) 20 mg PO DAILY [facility] Last Admin: 08/24/16 12:05 Dose: 20 mg Polyethylene Glycol (Miralax (For Daily Use) -) 17 gm PO DAILY [facility] Last Admin: 08/24/16 12:14 Dose: Not Given - Objective Vital Signs: Vital Signs Temperature 97.6 F 08/24/16 14:39 Pulse Rate 73 08/24/16 14:32 Respiratory Rate 18 08/24/16 14:32 Blood Pressure 91/57 08/24/16 11:31 O2 Sat by Pulse Oximetry (%) 97 08/24/16 11:30 Constitutional: Yes: No Distress Eyes: Yes: Conjunctiva Clear Cardiovascular: Yes: Regular Rate and Rhythm, S1, S2 Respiratory: Yes: Diminished Gastrointestinal: Yes: Normal Bowel Sounds, Soft, Other (distended, tympanitic) . No: Tenderness Extremities: Yes: Other (R TMA site with sutures intact No erythema/ drainage) Labs: CBC, BMP 08/24/16 07:30 08/24/16 07:30 INR, PTT INR 1.40 (0.82-1.09) H 08/13/16 17:00 Assessment/Plan Gangrene, R foot s/p TMA Temp spike ? source ESRD Continue empiric vancomycin + carbapenem Await cultures
--- NOTE | 2016-08-24 15:04 | PN ---
Progress Note, Physician Chief Complaint: Events noted Not in distress POD right TMA History of Present Illness: Patient was seen and examined. Awake and alert. Chart was reviewed Denies chest pain, SOB or palpitations - Current Medication List Current Medications: Active Medications Acetaminophen (Tylenol -) 650 mg PO Q6HPO [facility] Last Admin: 08/24/16 14:20 Dose: Not Given Albuterol Sulfate (Ventolin 0.083% Nebulizer Soln -) 1 amp NEB Q4H PRN PRN Reason: SHORT OF BREATH/WHEEZING Last Admin: 08/23/16 20:49 Dose: 1 amp Albuterol/Ipratropium (Duoneb -) 1 amp NEB QIDR [facility] Last Admin: 08/24/16 11:39 Dose: Not Given Atorvastatin Calcium (Lipitor -) 20 mg PO HS [facility] Last Admin: 08/23/16 21:29 Dose: 20 mg Calcium Carbonate (Calcium Carb Oral Suspension -) 500 mg PO DAILY PRN PRN Reason: INDIGESTION Carvedilol (Coreg -) 6.25 mg PO BID [facility] Last Admin: 08/24/16 12:05 Dose: Not Given Clopidogrel Bisulfate (Plavix -) 75 mg PO DAILY [facility] Last Admin: 08/24/16 12:04 Dose: 75 mg Diphenhydramine HCl (Benadryl -) 25 mg PO Q6H PRN PRN Reason: pm Guaifenesin (Diabetic Tussin Dm -) 5 ml PO Q6H PRN PRN Reason: COUGH Heparin Sodium (Porcine) (Heparin -) 5,000 unit SQ BID [facility] Last Admin: 08/24/16 12:05 Dose: 5,000 unit Meropenem 500 mg/ Dextrose 100 mls @ 200 mls/hr IVPB Q24H [facility] Last Admin: 08/24/16 14:54 Dose: 200 mls/hr Insulin Aspart (Novolog Vial Sliding Scale -) 1 vial SQ ACHS [facility] PRN Reason: Protocol Last Admin: 08/24/16 12:28 Dose: 2 unit Levothyroxine Sodium (Synthroid -) 75 mcg PO DAILY@0700 [facility] Last Admin: 08/24/16 06:19 Dose: 75 mcg Magnesium Chloride (Slow-Mag -) 64 mg PO DAILY [facility] Last Admin: 08/24/16 12:21 Dose: 64 mg Midodrine (Proamatine -) 10 mg PO MoWeFr@1000 [facility] Last Admin: 08/24/16 12:37 Dose: Not Given Multivit/Ca Carb/B Cmplx/FA/Prenat (Nephro-Coleman -) 1 tablet PO DAILY [facility] Last Admin: 08/24/16 12:05 Dose: 1 tablet Pantoprazole Sodium (Protonix -) 20 mg PO DAILY [facility] Last Admin: 08/24/16 12:05 Dose: 20 mg Polyethylene Glycol (Miralax (For Daily Use) -) 17 gm PO DAILY [facility] Last Admin: 08/24/16 12:14 Dose: Not Given - Objective Vital Signs: Vital Signs Temperature 97.6 F 08/24/16 14:39 Pulse Rate 73 08/24/16 14:32 Respiratory Rate 18 08/24/16 14:32 Blood Pressure 91/57 08/24/16 11:31 O2 Sat by Pulse Oximetry (%) 97 08/24/16 11:30 Neck: Yes: Supple Cardiovascular: Yes: Regular Rate and Rhythm, S1, S2 Respiratory: Yes: Diminished Gastrointestinal: Yes: Normal Bowel Sounds, Soft. No: Tenderness Extremities: Yes: Amputation (TMA) Edema: No Labs: CBC, BMP 08/24/16 07:30 08/24/16 07:30 Problem List - Problems (1) Anemia Code(s): D64.9 - ANEMIA, UNSPECIFIED Qualifiers: Anemia type: other cause Other causes of anemia: chronic disease, kidney Qualified Code(s): N18.9 - Chronic kidney disease, unspecified; D63.1 - Anemia in chronic kidney disease (2) Coronary artery disease Code(s): I25.10 - ATHSCL HEART DISEASE OF [place] CORONARY ARTERY W/O ANG PCTRS Qualifiers: Coronary Disease-Associated Artery/Lesion type: [place] artery [place] vs. transplanted heart: [place] heart Associated angina: without angina Qualified Code(s): I25.10 - Atherosclerotic heart disease of [place] coronary artery without angina pectoris (3) Diabetes Code(s): E11.9 - TYPE 2 DIABETES MELLITUS WITHOUT COMPLICATIONS Qualifiers: Diabetes mellitus type: type 2 Diabetes mellitus alf insulin use : without alf use Chronic kidney disease stage: on chronic dialysis (4) Gangrene of foot Code(s): I96 - GANGRENE, NOT ELSEWHERE CLASSIFIED (5) H/O myocardial infarction, greater than 8 weeks Code(s): I25.2 - OLD MYOCARDIAL INFARCTION (6) Ischemic dilated cardiomyopathy Code(s): I25.5 - ISCHEMIC CARDIOMYOPATHY (7) Pre-operative cardiovascular examination Code(s): Z01.810 - ENCOUNTER FOR PREPROCEDURAL CARDIOVASCULAR EXAMINATION (8) S/P CABG (coronary artery bypass graft) Code(s): Z95.1 - PRESENCE OF AORTOCORONARY BYPASS GRAFT (9) SOB (shortness of breath) Code(s): R06.02 - SHORTNESS OF BREATH (10) Single implantable cardioverter-defibrillator (ICD) in situ Code(s): Z95.810 - PRESENCE OF AUTOMATIC (IMPLANTABLE) CARDIAC DEFIBRILLATOR (11) Amputated toe of right foot Code(s): Z89.421 - ACQUIRED ABSENCE OF OTHER RIGHT TOE(S) (12) CHF (congestive heart failure) Code(s): I50.9 - HEART FAILURE, UNSPECIFIED Qualifiers: Congestive heart failure type: combined Congestive heart failure chronicity: acute on chronic Qualified Code(s): I50.43 - Acute on chronic combined systolic (congestive) and diastolic (congestive) heart failure (13) ESRD (end stage renal disease) Code(s): N18.6 - END STAGE RENAL DISEASE (14) HTN (hypertension) Code(s): I10 - ESSENTIAL (PRIMARY) HYPERTENSION Qualifiers: Hypertension type: essential hypertension Qualified Code(s): I10 - Essential (primary) hypertension (15) Hypercholesterolemia Code(s): E78.0 - PURE HYPERCHOLESTEROLEMIA * DO NOT USE * (16) Peripheral arterial disease Code(s): I73.9 - PERIPHERAL VASCULAR DISEASE, UNSPECIFIED Assessment/Plan 1. Gangrene right foot with underlying PAD s/p infrapoplitial BONDING AGENT and right partial 2nd toe amputation, S/P right TMA 2. CAD, [place], S/P CABG, angina pectoris 3. Ischemic dilated cardiomyopathy S/P ICD ([employer]es), history of failure 4. HTN/HCVD 5. Type 2 DM 6. Hypercholesterolemia 7. ESRD on HD MWF 8. Anemia due to chronic disease 9. Orthostatic near syncope 10. Hypothyroidism PLAN: 1. Empiric antibiotics and post operative wound care 2. Continue Carvedilol, Lipitor and Altace on non HD days as hemodynamics tolerate 3. Continue Plavix 4. DVT and GI prophylaxis 5. HD and monitor electrolytes 6. PT Further plans are to follow Ashvin Rueda MD
--- NOTE | 2016-08-24 16:17 | PN ---
Progress Note (short form) - Note Progress Note: Renal Follow up for ESRD on HD Pt seen and examined with dialysis this morning BP 70/40, Access with good function UF 1.5L pt groggy no chest pain or sob Vital Signs Temperature 97.6 F 08/24/16 14:39 Pulse Rate 73 08/24/16 14:32 Respiratory Rate 18 08/24/16 14:32 Blood Pressure 91/57 08/24/16 11:31 O2 Sat by Pulse Oximetry (%) 97 08/24/16 11:30 Intake & Output 08/21/16 08/22/16 08/23/16 08/24/16 23:59 23:59 23:59 23:59 Intake Total 220 600 250 240 Output Total 0 Balance 220 600 250 240 Weight 159 lb 9 oz 155 lb 6 oz 156 lb 9 oz 157 lb Gen: NAD, awake and alert, on NC O2 CVS: RRR, No M/R Lungs: + rales at lung bases Abd: soft NT/ND Ext: Right foot in dressing. no edema CBC, BMP 08/24/16 07:30 08/24/16 07:30 Current Medications Acetaminophen (Tylenol -) 650 mg PO Q6HPO [facility] Last Admin: 08/24/16 14:20 Dose: Not Given Albuterol/Ipratropium (Duoneb -) 1 amp NEB QIDR [facility] Last Admin: 08/24/16 11:39 Dose: Not Given Atorvastatin Calcium (Lipitor -) 20 mg PO HS [facility] Last Admin: 08/23/16 21:29 Dose: 20 mg Calcium Carbonate (Calcium Carb Oral Suspension -) 500 mg PO DAILY PRN PRN Reason: INDIGESTION Carvedilol (Coreg -) 6.25 mg PO BID [facility] Last Admin: 08/24/16 12:05 Dose: Not Given Clopidogrel Bisulfate (Plavix -) 75 mg PO DAILY [facility] Last Admin: 08/24/16 12:04 Dose: 75 mg Diphenhydramine HCl (Benadryl -) 25 mg PO Q6H PRN PRN Reason: pm Guaifenesin (Diabetic Tussin Dm -) 5 ml PO Q6H PRN PRN Reason: COUGH Heparin Sodium (Porcine) (Heparin -) 5,000 unit SQ BID [facility] Last Admin: 08/24/16 12:05 Dose: 5,000 unit Meropenem 500 mg/ Dextrose 100 mls @ 200 mls/hr IVPB Q24H [facility] Last Admin: 08/24/16 14:54 Dose: 200 mls/hr Insulin Aspart (Novolog Vial Sliding Scale -) 1 vial SQ ACHS [facility] PRN Reason: Protocol Last Admin: 08/24/16 12:28 Dose: 2 unit Levothyroxine Sodium (Synthroid -) 75 mcg PO DAILY@0700 [facility] Last Admin: 08/24/16 06:19 Dose: 75 mcg Magnesium Chloride (Slow-Mag -) 64 mg PO DAILY [facility] Last Admin: 08/24/16 12:21 Dose: 64 mg Midodrine (Proamatine -) 10 mg PO MoWeFr@1000 [facility] Last Admin: 08/24/16 12:37 Dose: Not Given Multivit/Ca Carb/B Cmplx/FA/Prenat (Nephro-Coleman -) 1 tablet PO DAILY [facility] Last Admin: 08/24/16 12:05 Dose: 1 tablet Pantoprazole Sodium (Protonix -) 20 mg PO DAILY [facility] Last Admin: 08/24/16 12:05 Dose: 20 mg Polyethylene Glycol (Miralax (For Daily Use) -) 17 gm PO DAILY [facility] Last Admin: 08/24/16 12:14 Dose: Not Given A/P 81 year old Gentleman with PMhx of ESRD on HD (MWF @ [facility]), Hypertension, CAD s/p CABG, PVD s/p recent toe amputation presents with worsening gangrene of his right foot. #Gangrene/PVD s/p TMA continue Abx as per ID #ESRD on HD tolerated HD today with 1.5 L UF BP marginal, unable to do any further UF #CHF/CAD continue Coreg UF a tolerated with dialysis #Anemia No acute indication for transfusion BENEDICT with HD Zion Le DO
--- NOTE | 2016-08-24 18:07 | PN ---
Progress Note (short form) - Note Progress Note: Awake but lethargic, slumped to one side. T 97 Foot wound clean. Sutures intact. Continue supportive care. Problem List - Problems (1) Gangrene of foot Code(s): I96 - GANGRENE, NOT ELSEWHERE CLASSIFIED
[2016-08-24] MEDS: ATORVASTATIN CA 20 MG TABLET (FP) PO SCH (22:22)
[2016-08-25] MEDS: ACETAMINOPHEN 325 MG TABLET (FP) PO SCH ×2 (00:01→07:42)
--- NOTE | 2016-08-25 06:12 | HOSP ---
Subjective - Review of Symptoms Events since last encounter: Was informed by the RN that patient has no pulse. On assessment, patient had no spontaneous breathing, no pulse, no gag reflex. However, could hear soft heart sound. Pupils were not fixed and dilated completely, it was sluggish to light. Confirmed DNR/DNI in the chart. Ordered Stat EKG to confirm. EKG: Flat line. Also confirmed by Dr. Wise. Declared at 6:20 am. RN to notify the primary, family members and organ donation facility. Physical Examination Vital Signs: Vital Signs Temperature 97.2 F L 08/25/16 01:54 Pulse Rate 77 08/25/16 01:54 Respiratory Rate 18 08/25/16 01:54 Blood Pressure 84/49 08/25/16 01:54 O2 Sat by Pulse Oximetry (%) 100 08/24/16 21:00 Labs: CBC, BMP 08/24/16 07:30 08/24/16 07:30 Visit type - Emergency Visit Emergency Visit: Yes ED Registration Date: 08/13/16 Care time: The patient presented to the Emergency Department on the above date and was hospitalized for further evaluation of their emergent condition. - New Patient This patient is new to me today: Yes Date on this admission: 08/25/16 - Critical Care Critical Care patient: No
[2016-08-25] MEDS: ALBUTEROL SO4 2.5/IPRATROPIUM 0.5 INH SOL 3 ML VIAL.NEB. NEB SCH (06:31)
[2016-08-25 07:08] VITALS: BP 130/72; PULSE 73; TEMP 97.7
[2016-08-25] MEDS: INSULIN SLIDING SCALE (NOVOLOG) 1 VIAL SQ SCH (07:42)
[2016-08-25] MEDS: LEVOTHYROXINE NA 75 MCG TABLET (FP) PO SCH (07:43)
--- NOTE | 2016-08-25 11:34 | DS ---
Physical Examination Vital Signs: Vital Signs Temperature 97.7 F 08/25/16 05:30 Pulse Rate 73 08/25/16 05:30 Respiratory Rate 18 08/25/16 05:30 Blood Pressure 130/72 08/25/16 05:30 O2 Sat by Pulse Oximetry (%) 100 08/24/16 21:00 Labs: CBC, BMP 08/24/16 07:30 08/24/16 07:30 Discharge Summary Reason For Visit: GANGRENE OF FOOT Current Active Problems Anemia (Acute) Coronary artery disease (Acute) Dysphagia (Acute) GERD (gastroesophageal reflux disease) (Acute) H/O myocardial infarction, greater than 8 weeks (Acute) Hyperlipidemia associated with type 2 diabetes mellitus (Acute) Ischemic dilated cardiomyopathy (Acute) Lightheaded (Acute) Neurocardiogenic pre-syncope (Acute) Postprandial bloating (Acute) S/P CABG (coronary artery bypass graft) (Acute) SOB (shortness of breath) (Acute) Single implantable cardioverter-defibrillator (ICD) in situ (Acute) Hospital Course: PCP: Christi Mendes - Admission Chief Complaint: sent in for gnagreene foot History of Present Illness: The patient is an 81 year old male, with a significant past medical history of asthma, CAD s/p IN and CABG(on plavix) cardiomyopathy with AICD, DM, PAD with amputated toes on right foot, left lower arm fistula, hypertension, hyperlipidemia, ESRD(dialysis M,W,F), and anemia, who presents to the emergency department BIBA from nursing for evaluation of gangrenous toes s/p amputation to the 3rd toe 2 weeks ago. The patient reports he has had amputation to 2 other toes in the right foot in the past(toe 1 and toe 4).The patient denies any pain to his right foot, and admits he has no sensation in his right foot. The patient reports his sensation is intact in his left foot. The patient states he was sent to the ED for evaluation of gangrenous toes by Dr. Blackmon. The patient reports chills, but denies fever, cough, headache, or dizziness. The patient denies any chest pain, shortness of breath, diaphoresis, or palpitations. The patient denies any abdominal pain, nausea, vomiting, diarrhea, or constipation. He reports minimal urinary output secondary to ESRD. The patient denies any recent travel or sick contacts. Allergies: None reported. Past Surgical History: Amputations to toes 1,3, and 4 of the right foot, Social History: Non-smoker. Denies alcohol or drug use. PCP: Dr. Mendes Surgeon: Dr. Blackmon in ER he got asiya seen by dr salas History Source: Medical Record had TMA surgery done, patient yesterday was DNR/DNI Condition: - Instructions Referrals: Christi Mendes MD [Primary Care Provider] - Disposition: - Home Medications Comprehensive Discharge Medication List: Ambulatory Orders Acetaminophen [Tylenol] 650 mg PO Q4HWA 08/13/16 Atorvastatin Ca [Lipitor] 40 mg PO HS 08/13/16 Calcium Carbonate Suspension - [Calcium Carb Oral Suspension -] 1,250 mg PO PRN 08/13/16 Carvedilol [Coreg -] 6.25 mg PO BID 08/13/16 Clopidogrel Bisulfate [Plavix -] 75 mg PO DAILY 08/13/16 Heparin - 5,000 unit SQ BID 08/13/16 Insulin Sliding Scale [Novolog Vial Sliding Scale -] 0 units SQ ACHS 08/13/16 Levothyroxine [Synthroid -] 25 mcg PO DAILY 08/13/16 Losartan Potassium [Cozaar -] 25 mg PO DAILY 08/13/16 Magnesium Chloride [Slow-Mag -] 64 mg PO DAILY 08/13/16 Pantoprazole Sodium [Protonix -] 20 mg PO DAILY 08/13/16 Ramipril [Altace] 5 mg PO DAILY 08/13/16 Rosuvastatin Calcium [Crestor] 10 mg PO HS 08/13/16 Sevelamer Carbonate [Renvela] 1,600 mg PO DAILY 08/13/16 Simvastatin 40 mg PO HS 08/13/16 Sitagliptin Phosphate [Januvia] 25 mg PO DAILY 08/13/16
--- NOTE | 2016-08-27 16:25 | EKG ---
Test Reason : Blood Pressure : / mmHG Vent. Rate : 222 BPM Atrial Rate : 129 BPM P-R Int : 000 ms QRS Dur : 150 ms QT Int : 146 ms P-R-T Axes : 000 189 000 degrees QTc Int : 280 ms POOR DATA QUALITY, INTERPRETATION MAY BE ADVERSELY AFFECTED WIDE COMPLEX TACHYCARDIA ABNORMAL ECG Confirmed by CECY VILLALOBOS MD ([id number]) on 08/27/2016 4:25:25 PM Referred By: Confirmed By:CECY VILLALOBOS MD
== END 2016-08-25 06:40 | disposition expired | DRG 239 ==
LOC: JER 16:03 → JERBED 17:38 → J7W 20:26 → J6S 08-17 10:09
PROVIDERS: ADMIT Family Medicine; ATTEND Family Medicine
PROC: 5A1D60Z (ICD-10-PCS; 2016-08-14)
PROC: 0Y6M0ZF Detachment at Right Foot, Partial 5th Ray, Open Approach (ICD-10-PCS; 2016-08-19)
PROC: 0Y6M0ZB Detachment at Right Foot, Partial 2nd Ray, Open Approach (ICD-10-PCS; principal; 2016-08-19 12:30)
DX: E11.52 Type 2 diabetes mellitus with diabetic peripheral angiopathy with gangrene (principal); N18.6 End stage renal disease; I13.2 Hypertensive heart and chronic kidney disease with heart failure and with stage 5 chronic kidney disease, or end stage renal disease; I50.9 Heart failure, unspecified; I25.10 Atherosclerotic heart disease of native coronary artery without angina pectoris; J45.909 Unspecified asthma, uncomplicated; I25.2 Old myocardial infarction; I25.5 Ischemic cardiomyopathy; E03.9 Hypothyroidism, unspecified; E78.5 Hyperlipidemia, unspecified; D63.1 Anemia in chronic kidney disease; R50.9 Fever, unspecified; I46.9 Cardiac arrest, cause unspecified; E11.22 Type 2 diabetes mellitus with diabetic chronic kidney disease; Z95.1 Presence of aortocoronary bypass graft; Z85.828 Personal history of other malignant neoplasm of skin; Z89.421 Acquired absence of other right toe(s); Z95.810 Presence of automatic (implantable) cardiac defibrillator; Z66 Do not resuscitate; Z99.2 Dependence on renal dialysis
CPT/HCPCS: 36415; 71010-TC; 73630-TC-RT; 80048; 80053; 80061; 82565; 83036; 83520; 83721; 83735; 84100; 84443; 84520; 85025; 85027; 85610; 85730; 86256; 86850; 86900; 86901; 86922; 87040; 87254; 87804; 88305-TC; 88311-TC; 93005; 93010; 94640; 94760; 97162-PG; 99282-25; G0480; J0885; J1644